=== PATIENT | female | born 1950 | race Caucasian/White ===

== ENCOUNTER 2023-06-27 12:12 | Outpatient (AMB) | payer OTHER, MEDICAID, SELFPAY ==
--- NOTE | 2023-06-27 13:29 | MHC.OFFWIV ---
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 She states that last week she developed fever cough congestion. She took a home COVID test which was positive but then noticed that the COVID test had last year. She is questioning if this is a valid for results. She also reports that 2 other people she works with tested positive for COVID recently. She is here requesting another COVID test. Review of Systems Const Reports body aches, Reports chills, Reports fatigue, Reports headache(s) and Reports malaise ENT Denies dizziness, Reports headache(s), Reports nasal congestion and Reports sore throat Card Denies rapid heart rate, Denies dyspnea and Denies dyspnea on exertion Resp Denies dyspnea and Denies dyspnea on exertion GI Denies dyspepsia and Denies heartburn Musc Denies arthralgias and Denies muscle cramps Neuro Denies dizziness, Reports headache(s), Denies focal weakness and Denies Other visual disturbances Endo Reports fatigue Physical Exam Vital Signs: Last Vital Signs Temp 97.8 F 06/27/23 13:45 Pulse 69 06/27/23 13:45 BP 128/88 06/27/23 13:45 Pulse Ox 97 06/27/23 13:45 Oxygen Delivery Method Room Air 06/27/23 13:45 BMI result Body Mass Index 33.3 Const General: healthy appearing and no acute distress HEENT Mouth: Normal oral and palatal mucosa present Resp Effort & Inspection: normal respiratory effort and able to speak in complete sentences Auscultation: clear to auscultation bilaterally Cardio Rate: regular rate Rhythm: regular rhythm Assessment & Plan Assessment & Plan (1) Flu-like symptoms: Code(s): R68.89 - Other general symptoms and signs Plan Patient well-appearing and stable for outpatient follow-up. Rapid antigen test will be ordered per patient's request. Will follow-up with patient. She reports to call her on her home phone: [phone] Orders: Orders Marshall Leslieid-19 Ag Today J06.9 - Acute upper respiratory infection, unspecified Coding Level of Care Code Est Pt Level 3 (30579) Diagnoses Flu-like symptoms R68.89
[2023-06-27 13:45] VITALS: BP 128/88; PULSE 69; TEMP 36.6; O2SAT 97; BMI 33.3
== END 2023-06-27 14:26 | disposition home or self-care (01) ==
PROVIDERS: PCP Internal Medicine; Visit Provider Emergency Medicine
DX: R68.89 Other general symptoms and signs (principal)
CPT/HCPCS: 99213

== ENCOUNTER 2023-06-27 14:06 | Outpatient (REF) | payer MEDICARE, SELFPAY ==
[2023-06-27 14:20] LABS: Binax Internal Control QC Valid; Binax Now Covid-19 Ag Positive (Negative); Binax Performed by: HO.BONILM
== END 2023-06-27 14:07 | disposition home or self-care (01) ==
LOC: HO.HMGCLDS 14:06
PROVIDERS: PCP Internal Medicine; Visit Provider Emergency Medicine
DX: Z11.52 Encounter for screening for COVID-19 (principal); J06.9 Acute upper respiratory infection, unspecified
CPT/HCPCS: 87811

== ENCOUNTER 2024-08-17 09:42 | Outpatient (REF) | payer MEDICARE, SELFPAY ==
--- NOTE | ~2024-08-17 | XR_ITS ---
EXAMINATION: X-ray lumbar spine. CLINICAL INFORMATION: Low back pain, unspecified. COMPARISON: No priors. TECHNIQUE: 4 views of the lumbar spine. FINDINGS: S-shaped curvature of the thoracolumbar spine resulting in deformity of the abdomen and pelvis. Multilevel marginal osteophyte formation. Probable grade 1 anterolisthesis L5-S1. Osteopenia versus osteoporosis. No lytic or blastic lesions. Vascular calcifications, aorta. XR/XR lumbar spine 4V min IMPRESSION: Moderate to severe scoliosis, thoracolumbar spine. Grade 1 anterolisthesis L5-S1 on a degenerative basis. Electronically signed by: Soy Schmitz MD 08/17/2024 01:43 PM EST
--- OUTSIDE RECORDS SUMMARY | 2024-08-17 11:41 | XMS_ITS | Encounter Summary ---
Author Organization [facility] Address [address] [place] [address] Care Team Providers Care Home School Liaison Officer Name Role Phone Cait Redd MD Primary Care Provider [phone] Encounter Details Date Type Department Care Team Description 11/18/2021 Pt. Non Urgent Medic al Question Adult Medicine [address] [address] Vidhi Villalta PA-C Social History Tobacco Use Types Packs/Day Years Used Date Smoking Tobacco: Former Smokeless Tobacco: Never Comments:quit 2002 Alcohol Use Standard Drinks/Week Comments No 0 (1 standard drink = 0.6 oz pur e alcohol) Sex Assigned at Date Recorded Female 03/31/2021 9:19 AM E DT Job Start Date Occupation Industry Not on file Not on file Not on file COVID-19 Exposure Response Date Recorded In the last 10 days, have yo u been in contact with someone who was confirmed or suspected to have Coronavirus/COVID-19? No / Unsure 11/17/2021 9:43 AM EDT documented as of this encounter Miscellaneous Notes * Telephone Encounter - Radha Barkley - 11/20/2021 7:34 AM EDTFrom: Aline Carr To: Ponce Villalta Sent: 11/18/2021 9:21 AM EDT Subject: knee x ray 11/17/2021 i read the results and i do not understand why my knee hurts so much if there is nothing different. can you please explain thank you, aline documented in this encounter Plan of Treatment Not on file documented as of this encounter Visit Diagnoses Not on filedocumented in this encounter Care Teams Home School Liaison Officer Relationship Specialty Start Date End Date Cait Redd MD [address] [place] [phone] PCP - General 01/11/09 documented as of this encounter
--- OUTSIDE RECORDS SUMMARY | 2024-08-17 11:41 | XMS_ITS | Encounter Summary ---
Author Organization [facility] Address [address] [place] [address] Care Team Providers Care Homicide Squad Captain Name Role Phone Cait Redd MD Primary Care Provider [phone] Encounter Details Date Type Department Care Team Description 12/07/2021 Pt. Non Urgent Medic al Question Adult Medicine [address] [address] Vidhi Villalta PA-C Social History Tobacco Use [...] suspected to have Coronavirus/COVID-19? No / Unsure 12/05/2021 12:20 PM EDT documented as of this encounter Miscellaneous Notes * Telephone Encounter - Odalis Hernández M.A. - 12/08/2021 8:11 AM EDTFrom: Aline Carr To: Ponce Villalta Sent: 12/07/2021 8:59 PM EDT Subject: physical therapy i already have a PT evaluation for 12/12/2021. why do i need to set up an appt. for PT on [facility]? if i can have my PT at [facility] i want to have it there. i do not want to travel 2 or 3 times a week to [place] for PT . [facility] is much closer and i do not like driving. thank you, aline documented in this encounter Plan of Treatment Not on file documented as of this encounter Visit Diagnoses Not on filedocumented in this encounter Care Teams Homicide Squad Captain Relationship Specialty Start Date End Date Cait Redd MD [address] [place] [phone] PCP - General 01/11/09 documented as of this encounter
--- OUTSIDE RECORDS SUMMARY | 2024-08-17 11:41 | XMS_ITS | Encounter Summary ---
Author Organization [facility] Address [address] [place] [address] Care Team Providers Care Meat Hanger Name Role Phone Cait Redd MD Primary Care Provider [phone] Encounter Details Date Type Department Care Team Description 12/01/2014 Business Doc Medical Records [address] [place] [phone] Abstract, Provider Social History Tobacco Use Types Packs/Day Years Used Date Smoking Tobacco: Former Smokeless Tobacco: Never Comments:quit 2002 Alcohol Use Standard Drinks/Week Comments No 0 (1 standard drink = 0.6 oz pur e alcohol) Sex Assigned at Date Recorded Female 03/31/2021 9:19 AM E DT Job Start Date Occupation Industry Not on file Not on file Not on file documented as of this encounter Plan of Treatment Not on file documented as of this encounter Visit Diagnoses Not on filedocumented in this encounter Care Teams Meat Hanger Relationship Specialty Start Date End Date Cait Redd MD [address] [place] [address] [phone] PCP - General 01/11/09 documented as of this encounter
--- OUTSIDE RECORDS SUMMARY | 2024-08-17 11:41 | XMS_ITS | Encounter Summary ---
Author Organization [facility] Address [address] [place] [address] Care Team Providers Care Bending Roll Operator Name Role Phone Cait Redd MD Primary Care Provider [phone] Encounter Details Date Type Department Care Team Description 03/30/2020 Pt. Non Urgent Medical Question Adult Medicine [facility] [address] [place] [address] Salvatore Norman FNP [address] [place] [address] Social History Tobacco Use Types Packs/Day Years Used Date Smoking Tobacco: Former Smokeless Tobacco: Never Comments:quit 2002 Alcohol Use Standard Drinks/Week Comments No 0 (1 standard drink = 0.6 oz pur e alcohol) Sex Assigned at Date Recorded Female 03/31/2021 9:19 AM E DT Job Start Date Occupation Industry Not on file Not on file Not on file documented as of this encounter Miscellaneous Notes * Telephone Encounter - Jacki Vasquez M.A. - 03/30/2020 1:26 PM EDTFrom: Radha Carr To: MONISHA Steiner Sent: 03/30/2020 12:57 PM EDT Subject: shingles shot Last week I brought in a paper that had when I gotten my 2 shingles shots. I left it at Dr. Redd's front desk representative. Have you received it yet? I just checked today and the shots are listed as overdue. Thank you, Radha documented in this encounter Plan of Treatment Not on file documented as of this encounter Visit Diagnoses Not on filedocumented in this encounter Care Teams Bending Roll Operator Relationship Specialty Start Date End Date Cait Redd MD [address] [place] [phone] PCP - General 01/11/09 documented as of this encounter
--- OUTSIDE RECORDS SUMMARY | 2024-08-17 11:41 | XMS_ITS | Encounter Summary ---
Author Organization [facility] Address [address] [place] [address] Care Team Providers Care Paintings Restorer Name Role Phone Cait Redd MD Primary Care Provider [phone] Encounter Details Date Type Department Care Team Description 03/24/2021 Telephone [address]ermat[address] [place] [address] Blanco Camarillo PA-C Social History Tobacco Use Types Packs/Day [...] Exposure Response Date Recorded In the last month, have you been in contact with someone who was confirmed or suspected to have Coronavirus / COVID-19? No / Unsure 03/20/2021 10:14 AM EDT documented as of this encounter Miscellaneous Notes * Telephone Encounter - Natalie Barkley - 03/29/2021 1:50 PM EDT Several attempts to contact this number-rapid busy signal. ? Correct number? * Telephone Encounter - María Elena Arizmendi - 03/24/2021 10:51 AM EDT [facility] called has questions about the quantity of Menthol-Zinc Oxide (Calmoseptine) 0.44-20.6 % Ointment, please advise they can be reached at [phone] reference number [id number] documented in this encounter Plan of Treatment Not on file documented as of this encounter Visit Diagnoses Not on filedocumented in this encounter Care Teams Paintings Restorer Relationship Specialty Start Date End Date Cait Redd MD [address] [place] [phone] PCP - General 01/11/09 documented as of this encounter
--- OUTSIDE RECORDS SUMMARY | 2024-08-17 11:41 | XMS_ITS | Encounter Summary ---
Author Organization [facility] Address [address] [place] [address] Care Team Providers Care A P Manager Name Role Phone Cait Redd MD Primary Care Provider [phone] Encounter Details Date Type Department Care Team Description 12/11/2016 Pt. Non Urgent Medical Question Adult Medicine [facility] [address] [place] [address] [phone] Cait Redd MD [address] [place] [address] [phone] Social History Tobacco Use Types Packs/Day Years Used Date Smoking Tobacco: Former Smokeless Tobacco: Former Comments:quit 2002 Alcohol Use Standard Drinks/Week Comments No 0 (1 standard drink = 0.6 oz pur e alcohol) Sex Assigned at Date Recorded Female 03/31/2021 9:19 AM E DT Job Start Date Occupation Industry Not on file Not on file Not on file documented as of this encounter Progress Notes * Debby Simpson M.A. - 12/11/2016 2:07 PM EDTFrom: Radha Carr To: Cait Redd MD Sent: 12/11/2016 1:57 PM EDT Subject: urology referral I have not been called about a urology appointment as of yet. I do not have blood in my urine todaybut i want to find out what caused the bloody urine. documented in this encounter Plan of Treatment Not on file documented as of this encounter Visit Diagnoses Not on filedocumented in this encounter Care Teams A P Manager Relationship Specialty Start Date End Date Cait Redd MD [address] [place] [phone] PCP - General 01/11/09 documented as of this encounter
--- OUTSIDE RECORDS SUMMARY | 2024-08-17 11:41 | XMS_ITS | Encounter Summary ---
Author Organization [facility] Address [address] [place] [address] Care Team Providers Care Extrusion Bender Name Role Phone Cait Redd MD Primary Care Provider [phone] Encounter Details Date Type Department Care Team Description 01/06/2021 Pt. Non Urgent Medical Question Adult Medicine [facility] [address] [place] [phone] Salvatore Norman, [facility] [address] [place] [address] [phone] Social History Tobacco Use Types Packs/Day Years [...] have Coronavirus / COVID-19? No / Unsure 12/20/2020 9:41 AM EDT documented as of this encounter Plan of Treatment Not on file documented as of this encounter Visit Diagnoses Not on filedocumented in this encounter Care Teams Extrusion Bender Relationship Specialty Start Date End Date Cait Redd MD [address] [place] [address] [phone] PCP - General 01/11/09 documented as of this encounter
--- OUTSIDE RECORDS SUMMARY | 2024-08-17 11:41 | XMS_ITS | Encounter Summary ---
Author Organization [facility] Address [address] [place] [address] Care Team Providers Care Shampoo Technician Name Role Phone Cait Redd MD Primary Care Provider [phone] Encounter Details Date Type Department Care Team Description 12/25/2013 Hospital Medical Records [address] [place] [address] [place] Social History Tobacco Use Types Packs/Day Years [...] on filedocumented in this encounter Care Teams Shampoo Technician Relationship Specialty Start Date End Date Cait Redd MD [address] [place] [address] [phone] PCP - General 01/11/09 documented as of this encounter
--- OUTSIDE RECORDS SUMMARY | 2024-08-17 11:41 | XMS_ITS | Encounter Summary ---
Author Organization [facility] Address [address] [place] [address] Care Team Providers Care Home Office Claims Examiner Name Role Phone Cait Redd MD Primary Care Provider [phone] Encounter Details Date Type Department Care Team Description 02/01/2021 Orders Only Adult Medicine [address] [phone] Vidhi Villalta PA-C Social History Tobacco Use [...] have Coronavirus / COVID-19? No / Unsure 01/31/2021 9:46 AM EDT documented as of this encounter Plan of Treatment Not on file documented as of this encounter Visit Diagnoses Not on filedocumented in this encounter Care Teams Home Office Claims Examiner Relationship Specialty Start Date End Date Cait Redd MD [address] [place] [phone] PCP - General 01/11/09 documented as of this encounter
--- OUTSIDE RECORDS SUMMARY | 2024-08-17 11:41 | XMS_ITS | Encounter Summary ---
Author Organization [facility] Address [address] [place] [address] Care Team Providers Care Retail Sales Assistant Name Role Phone Cait Redd MD Primary Care Provider [phone] Encounter Details Date Type Department Care Team Description 11/22/2014 Business Doc Medical Records [address] [place] [address] Abstract, Provider Social History Tobacco Use Types [...] on filedocumented in this encounter Care Teams Retail Sales Assistant Relationship Specialty Start Date End Date Cait Redd MD [address] [place] [address] [phone] PCP - General 01/11/09 documented as of this encounter
--- OUTSIDE RECORDS SUMMARY | 2024-08-17 11:41 | XMS_ITS | Encounter Summary ---
Author Organization [facility] Address [address] [place] [address] Care Team Providers Care Foiling Machine Adjuster Name Role Phone Cait Redd MD Primary Care Provider [phone] Encounter Details Date Type Department Care Team Description 06/09/2015 Pt. Non Urgent Medical Question Adult Medicine [facility] [address] [place] [phone] Cait Redd MD [address] [place] [address] [phone] Social History Tobacco Use Types Packs/Day Years [...] Progress Notes * Debby Simpson M.A. - 06/09/2015 8:45 AM ESTFrom: Radha Carr To: Cait Redd MD Sent: 06/09/2015 8:43 AM EST Subject: housing liaison referral I do not have a housing liaison. I thought samantha had a housing liaison that I could make an appointment with documented in this encounter Plan of Treatment Not on file documented as of this encounter Visit Diagnoses Not on filedocumented in this encounter Care Teams Foiling Machine Adjuster Relationship Specialty Start Date End Date Cait Redd MD [address] [place] [phone] PCP - General 01/11/09 documented as of this encounter
--- OUTSIDE RECORDS SUMMARY | 2024-08-17 11:41 | XMS_ITS | Encounter Summary ---
Author Organization [facility] Address [address] [place] [address] Care Team Providers Care Valve Maker Name Role Phone Cait Redd MD Primary Care Provider [phone] Encounter Details Date Type Department Care Team Description 06/27/2023 Walk In Clinic Visit Medical Records [address] [place] [address] Lolis Balderrama DO Social History Tobacco Use Types Packs/Day Years [...] on filedocumented in this encounter Care Teams Valve Maker Relationship Specialty Start Date End Date Cait Redd MD [address] [place], [place] [phone] PCP - General 01/11/09 documented as of this encounter
--- OUTSIDE RECORDS SUMMARY | 2024-08-17 11:41 | XMS_ITS | Encounter Summary ---
Author Organization [facility] Address [address] [place] [address] Care Team Providers Care Consulting Marine Engineer Name Role Phone Cait Redd MD Primary Care Provider [phone] Encounter Details Date Type Department Care Team Description 09/04/2012 Scientific Systems Analyst Report Medical Records [address] [place] [address] Memo Urban Social History Tobacco Use Types Packs/Day Years [...] on filedocumented in this encounter Care Teams Consulting Marine Engineer Relationship Specialty Start Date End Date Cait Redd MD [address] [place] [phone] PCP - General 01/11/09 documented as of this encounter
--- OUTSIDE RECORDS SUMMARY | 2024-08-17 11:41 | XMS_ITS | Encounter Summary ---
Author Organization [facility] Address [address] [place] [address] Care Team Providers Care Electrician Radio Name Role Phone Cait Redd MD Primary Care Provider [phone] Encounter Details Date Type Department Care Team Description 09/29/2014 Business Doc Medical Records [address] [place] [address] Abstract, Provider Social History Tobacco Use Types [...] on filedocumented in this encounter Care Teams Electrician Radio Relationship Specialty Start Date End Date Cait Redd MD [address] [place] [address] [phone] PCP - General 01/11/09 documented as of this encounter
--- OUTSIDE RECORDS SUMMARY | 2024-08-17 11:41 | XMS_ITS | Encounter Summary ---
Author Organization [facility] Address [address] [place] [address] Care Team Providers Care Front Office Representative Name Role Phone Cait Redd MD Primary Care Provider [phone] Encounter Details Date Type Department Care Team Description 04/22/2024 Telephone Adult Medicine [address] [phone] Cait Redd MD [address] [place] [address] Social History Tobacco Use Types Packs/Day Years [...] on filedocumented in this encounter Care Teams Front Office Representative Relationship Specialty Start Date End Date Cait Redd MD [address] [place] [address] PCP - General 01/11/09 documented as of this encounter
--- OUTSIDE RECORDS SUMMARY | 2024-08-17 11:41 | XMS_ITS | Encounter Summary ---
Author Organization [facility] Address [address] [place] [address] Care Team Providers Care Gun Tester Name Role Phone Cait Redd MD Primary Care Provider [phone] Encounter Details Date Type Department Care Team Description 12/31/2016 Licensed Audiologist Report Medical Records [address] [place] [address] Ramez Christinason MD Social History Tobacco Use Types Packs/Day Years [...] on filedocumented in this encounter Care Teams Gun Tester Relationship Specialty Start Date End Date Cait Redd MD [address] [place] [address] [phone] PCP - General 01/11/09 documented as of this encounter
--- OUTSIDE RECORDS SUMMARY | 2024-08-17 11:41 | XMS_ITS | Encounter Summary ---
Author Organization [facility] Address [address] [place] [address] Care Team Providers Care Natural Resources Manager Name Role Phone Cait Redd MD Primary Care Provider [phone] Encounter Details Date Type Department Care Team Description 10/16/2012 Wood Furniture Assembler Report Medical Records [address] [place] [address] Memo Urban Social History Tobacco Use Types [...] on filedocumented in this encounter Care Teams Natural Resources Manager Relationship Specialty Start Date End Date Cait Redd MD [address] [place] [address] PCP - General 01/11/09 documented as of this encounter
--- OUTSIDE RECORDS SUMMARY | 2024-08-17 11:41 | XMS_ITS | Encounter Summary ---
Author Organization [facility] Address [address] [place] [address] Care Team Providers Care Furniture Repair Technician Name Role Phone Cait Redd MD Primary Care Provider [phone] Encounter Details Date Type Department Care Team Description 12/23/2013 Fixed Wing Pilot Report Medical Records [address] [place] [address] [place] Social History Tobacco Use Types [...] on filedocumented in this encounter Care Teams Furniture Repair Technician Relationship Specialty Start Date End Date Cait Redd MD [address] [place] [address] [phone] PCP - General 01/11/09 documented as of this encounter
--- OUTSIDE RECORDS SUMMARY | 2024-08-17 11:41 | XMS_ITS | Encounter Summary ---
Author Organization [facility] Address [address] [place] [address] Care Team Providers Care Supervisor Instrument Repair Name Role Phone Cait Redd MD Primary Care Provider [phone] Encounter Details Date Type Department Care Team Description 04/26/2015 Pt. Non Urgent Medical Question Adult Medicine [facility] [address] [place] [address] [phone] Cait Redd MD [address] [place] [address] [phone] Social History Tobacco Use Types Packs/Day Years [...] as of this encounter Progress Notes * Radha Corea M.A. - 04/27/2015 8:01 AM EDTFrom: Radha Carr To: Cait Redd MD Sent: 04/26/2015 7:47 PM EDT Subject: Dr. Santiago appt. I have a follow-up appointment with Dr. Santiago in May. Will I need to have blood work donebefore then to check on the Hep C ? documented in this encounter Plan of Treatment Not on file documented as of this encounter Visit Diagnoses Not on filedocumented in this encounter Care Teams Supervisor Instrument Repair Relationship Specialty Start Date End Date Cait Redd MD [address] [place] [phone] PCP - General 01/11/09 documented as of this encounter
--- OUTSIDE RECORDS SUMMARY | 2024-08-17 11:41 | XMS_ITS | Clinical Summary ---
Author Organization [facility] Address [address] [place] [address] Care Team Providers Care Customer Solutions Teammate Name Role Phone Cait Redd MD Primary Care Provider [phone] Allergies No known active allergies Medications metoprolol succinate (TOPROL-XL) 25 mg 24 hr tablet TAKE 1 TABLET BY MOUTH DAILY 90 tablet 1 4 Active FLUoxetine (PROzac) 10 mg capsule Take 1 capsule (10 mg total) by mouth 1 (one) time each day. 4 Active hydroCHLOROthia zide (HYDRODIURIL) 25 mg tablet Take 1 tablet (25 mg total) by mouth 1 (one) time each day. 4 Active oxyBUTYnin XL (DITROPAN-XL) 15 mg 24 hr tablet Take 1 tablet (15 mg total) by mouth 1 (one) time each day. 4 Active cekytsxw-ijg-xh on-FA-vit K-lut (Centrum Silver Women) 8 mg iron-400 mcg-50 mcg tablet Take by mouth. Acti ve calcium carbonate 1,500 mg (600 mg elemental calcium) tablet Take 600 mg by mouth 2 (two) times a day with meals. 4 Active cholecalciferol (VITAMIN D-3) 50 mcg (2,000 unit) tablet Take 1 tablet (2,000 Units total) by mouth 1 (one) time each day. 4 Active alendronate (FOSAMAX) 70 mg tablet Take 1 tablet (70 mg total) by mouth every 7 (seven) days. 4 Active fluticasone propionate (FLONASE) 50 mcg/actuation nasal spray Administer 2 sprays into affected nostril(s) 1 (one) time each day. 3 Active aspirin 81 mg EC tablet Take 1 tablet (81 mg total) by mouth 1 (one) time each day. 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 Fosamax initiated 08/18/21 see tele encounter OAB (overactive bladder) 10/30/2016 Scoliosis 10/30/2016 Overview (06/18/2024): Thoracic Tremor 09/25/2016 Gallstones 06/21/2016 Depression 04/15/2014 Obesity 09/05/2010 Essential hypertension, benign 10/15/2007 Sciatica 10/15/2007 Immunizations Name Administration Dates Next Due Influenza trivalent, 0.5mL ( Fluad) 65yo and older 03/30/2022,03/31/2021,03/10/2021,05/01,04/01/2020,03/11/2019,04/02/2018 ,04/08/2017,03/19/2016,03/20/2015,03/08,03/12/2013,03/24/2012, 1,03/10/2011,04/07/2010,03/29/2009 Influenza, Unspecified 03/29/2023 Moderna (age 6mo & older) Bi valent, COVID-19, 0.5 mL or 0.25 mL dosage 05/25/2022 Moderna SARS-CoV-2 COVID-19, mRNA, LNP-S, preservative free 02/06/2022,06/28/2021,11/26/2020,10/29 Pneumococcal conjugate 13 va lent (Prevnar 13, PCV13) 2mo and older 03/26/2015 Pneumococcal polysaccharide 23 valent (Pneumovax 23) 2yo and older 03/22/2020,03/22/2019,03/19/2016 Td Tetanus diptheria (Tdvax) 7yo and older 05/27/2019 Tdap Tetanus diptheria acell ular pertussis (Boostrix; Adacel) 7yo and older 06/08/2009 Zoster Live 03/26/2015 Zoster recombinant (Shingrix ) 19yo and older 03/11/2018,11/11/2017 Surgical History Surgery Date Site/Laterality Comments COLONOSCOPY 2000 PROCEDURE: HISTORICAL COLONOSCOPY; COMMENT: One polyp; Francia. COLONOSCOPY 2004 PROCEDURE: HISTORICAL COLONOSCOPY; COMMENT: Negative; Francia. COLONOSCOPY 08/16/2010 PROCEDURE: HISTORICAL COLONOSCOPY; COMMENT: No polyps. COLONOSCOPY 12/13/2017 PROCEDURE: HISTORICAL COLONOSCOPY; COMMENT: diverticulosis, internal hemorrhoids, Repeat 5 yrs for surveillance OTHER SURGICAL HISTORY 12/25/2013 Left PROCEDURE: IA IMPLTJ/RPLCMT EMGNT BONE CNDJ DEV TEMPORAL BONE; COMMENT: Cochlear Implant Medical History Medical History Date Comments Sciatica 10/15/2007 DX:Sciatica Essential hypertension, benign 10/15/2007 D X:Essential hypertension, benign Obesity 09/05/2010 DX:Obesity Depression 04/15/2014 DX:Depression History of colonic polyps 08/07/2010 DX:His tory of colonic polyps; COMMENT: Polyp 2000. Negative colonoscopy 2004. Negative colonoscopy 08/16/2010, no colon cancer screening needed for 7 years. Gallstones 06/21/2016 DX:Gallstones History of thrombophlebitis 08/27/2010 DX:H istory of thrombophlebitis; COMMENT: Aug 2010: At [facility] for saphenous vein thrombosis - calf to thigh - at risk for propagation to femoral vein. Also on Rx for cellulitis. History of hepatitis C 04/29/2014 DX:Histor y of hepatitis C; COMMENT: Chronic Hepatitis C Genotype 1B. Tx Started 07/20/16 Harvoni 90-400 mg Take 1 tabs daily for 8 weeks. End date 09/21/16. HCV undetectable on 09/14/16=ETR. HCV undetectable on 12/17/16 = SVR. 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) 04/17/2017 DX:PVD (peripheral vascular disease) ([facility]) Tremor 09/25/2016 DX:Tremor Varicose veins of both lower extremities 12/22/2019 DX:Varicose veins of both lo wer extremities Family History Medical History Relation Name Comments Diabetes Aunt multiple matern al aunts Arthritis Brother Bladder Cancer Father Diabetes Maternal Grandmother Diabetes Mother Breast cancer Neg Hx Colon cancer Neg Hx Ovarian cancer Neg Hx Relation Name Status Comments Aunt Brother Alive Father Maternal Grandmother Mother Social History Tobacco Use Types Packs/Day Years Used Date Smoking Tobacco: Former Smokeless Tobacco: Never Alcohol Use Standard Drinks/Week Comments No 0 (1 standard drink = 0.6 oz pur e alcohol) Comments Unknown Sex and Gender Information Value Date Recorded Sex Assigned at Not on file Legal Sex Female 5:20 PM EST Gender Identity Not on file Sexual Orientation Not on file Obstetrics History Last Filed Vital Signs Vital Sign Reading Time Taken Comments Blood Pressure 134/73 04/22/2024 11:05 AM EDT Pulse 62 04/22/2024 11:05 AM EDT Temperature - - Respiratory Rate - - Oxygen Saturation - - Inhaled Oxygen Concentration - - Weight 74.1 kg (163 lb 6.4 oz) 04/22/2024 11:05 AM EDT Height 149.9 cm (4' 11 ) 04/22/2024 11:05 AM EDT Body Mass Index 33 04/22/2024 11:05 AM EDT Plan of Treatment Upcoming Encounters Date Type Department Care Team (Late st Contact Info) Description 10/21/2024 11:00 AM EDT Office Visit Adult Medicine [facility] [address] [place], [place] [phone] Eze Rosales NP [address] [place], [place] Health Maintenance Due Date Last Done Comments DTaP,Tdap,and Td Vaccines (3 - Td or Tdap) 11/25/2019 05/27/2019, 06/08/2009 Social Influencers of Health Screening 06/09/2022 RSV Immunization Patients 60+ Years Old (1 - 1-dose 75+ series) 09/08/2023 COVID-19 Vaccine ( season) 2024 05/25/2022, 02/06/2022, 06/28/2021, Additional history exists Influenza Vaccine (#1) 2024 3, 03/30/2022, 03/31/2021, Additional history exists Colorectal Cancer Screening: Colonoscopy 12/13/2024 12/13/2017 Hypertension/CHF/CAD Annual BMP Blood Test 04/01/2025 04/01/2024, 04/01/2024 Depression Screening 04/22/2025 04/22/2024 Falls Risk Assessment 04/22/2025 04/22/2024 Medicare Annual Wellness Visit 04/22/2025 04/22/2024 Cholesterol Screening (Lipid Panel) 11/17/2026 11/17/2021 Osteoporosis Screening (Bone Density Screening) 04/13/2034 04/13/2024, 04/13/2024, 08/16/2021, Additional history exists Hepatitis C Screening Completed 01/05/2014 Zoster Vaccines Completed 03/11/2018, 050 01/2018, 03/26/2015 Pneumococcal Vaccine: 50+ Years Completed 03/22/2020, 03/22/2019, 03/19/2016, Additional history exists HIB Vaccines Aged Out No longer eligi ble based on patient's age to complete this topic HPV Vaccines Aged Out No longer eligi ble based on patient's age to complete this topic Hepatitis A Vaccines Aged Out No long er eligible based on patient's age to complete this topic Hepatitis B Vaccines Aged Out No long er eligible based on patient's age to complete this topic IPV Vaccines Aged Out No longer eligi ble based on patient's age to complete this topic MMR Vaccines Aged Out No longer eligi ble based on patient's age to complete this topic Meningococcal ACWY Vaccine Aged Out N o longer eligible based on patient's age to complete this topic Meningococcal B Vacine Aged Out No lo nger eligible based on patient's age to complete this topic RSV Immunization Patients Under 20 months Aged Out No longer eligible based on patient's age to complete this topic Varicella Vaccines Aged Out No longer eligible based on patient's age to complete this topic Procedures Procedure Name Priority Date/Time Associated Diagnosis Comments DEPRESSION SCREENING Routine 04/22/2024 FALLS RISK ASSESSMENT Routine 04/22/2024 DXA BONE DENSITY STUDY 1+ SITS AXIAL SKEL Routine 04/13/2024 12:00 PM EDT Asymptomatic menopausal state ANNUAL BMP BLOOD TEST Routine 04/01/2024 LIPID PANEL Routine 11/17/2021 COLONOSCOPY Routine 12/13/2017 HEPATITIS C SCREENING Routine 01/05/2014 from Last 3 Months or Most Recently Relevant to Health Maintenance Results * Falls Risk Assessment (04/22/2024) Pathologist [facility] Falls Risk Assessment Abstracted us Historical Provider HEALTH MAINTENANCE Final Result * Depression Screening (04/22/2024) Pathologist [facility] Depression Screening Abstracted us Historical Provider HEALTH MAINTENANCE Final Result * DXA BONE DENSITY STUDY 1+ SITS AXIAL SKEL (04/13/2024 12:00 PM EDT) Anatomical Region Laterality Modality Bone Densitometr y 10/01/2023 10:2 6 AM EDT Narrative 04/13/2024 5:31 PM EDT BONE DENSITY SCAN (DEXA): FINDINGS: Lumbar Spine T-score is 0.4. ?? (SD relative to 20-29 y/o adult) Z-score is 2.9. ??(SD relative to age matched peers) This is considered normal by WHO criteria. Left Hip T-score is -2.6. Z-score is -0.5. This is considered osteoporosis by WHO criteria. Left Forearm T-score is -1.3. Z-score is 1.3. This is considered osteopenia by WHO criteria Comparison exam(s): 08/16/2021. 7.0% increase in lumbar spine bone mineral density and 9.5% increase in left forearm bone mineral density both of which are statistically significant at the 95% confidence level. No statistically significant change in left hip bone mineral density. Lateral survey view of the thoracolumbar spine is essentially nondiagnostic due to scoliotic curvature. IMPRESSION: IMPRESSION: ?? Osteoporosis by WHO criteria. The [facility] Department of Internal Medicine recommends using National Osteoporosis Foundation (NOF) guidelines in treatment decisions related to osteoporosis. NOF guidelines suggest considering treatment for postmenopausal women and men aged 50 or older presenting with the following: History of hip or vertebral fracture. T-score = -2.5 (DXA) at the femoral neck, total hip, or spine, after appropriate evaluation to exclude secondary causes. Low bone mass (T-score between -1.0 and -2.5 at the femoral neck or spine) AND a 10-year probability of a hip fracture = 3% OR a 10-year probability of a major osteoporosis-related fracture = 20% based on the [place]-adapted WHO algorithm Please note that all treatment decisions require clinical judgment and consideration of individual patient factors, including patient preferences, co-morbidities, previous drug use, risk factors not captured in the FRAX model (e.g., frailty, falls, vitamin D deficiency, increased bone turnover, interval significant decline in bone density) and possible under- or over-estimation of fracture risk by FRAX. Optional alternative screening schedule based on evangelina Oneal., [facility] July 26, 2011 for patients with osteopenia (based on hip BMD T-score) is as follows: * ??advanced osteopenia (T scores -2.00 to -2.49), BMD testing every year * ??moderate osteopenia (T scores -1.50 to -1.99), BMD testing every 5 years mild osteopenia or normal BMD (T scores -1.50 and higher), BMD testing every 15 years Procedure Note Moon Glynn MD - 05/05/2024 BONE DENSITY SCAN (DEXA): FINDINGS: Lumbar Spine T-score is 0.4. (SD relative to 20-29 y/o adult) Z-score is 2.9. (SD relative to age matched peers) This is considered normal by WHO criteria. Left Hip T-score is -2.6. Z-score is -0.5. This is considered osteoporosis by WHO criteria. Left Forearm T-score is -1.3. Z-score is 1.3. This is considered osteopenia by WHO criteria Comparison exam(s): 08/16/2021. 7.0% increase in lumbar spine bone mineraldensity and 9.5% increase in left forearm bone mineral density both of which arestatistically significant at the 95% confidence level. No statistically significant change in left hipbone mineral density. Lateral survey view of the thoracolumbar spine is essentiallynondiagnostic due to scoliotic curvature. IMPRESSION: IMPRESSION: Osteoporosis by WHO criteria. [facility] Department of Internal Medicine recommendsusing National Osteoporosis Foundation (NOF) guidelines in treatment decisions related toosteoporosis. NOF guidelines suggest considering treatment for postmenopausal women and menaged 50 or older presenting with the following: History of hip or vertebral fracture. T-score = -2.5 (DXA) at the femoral neck, total hip, or spine, afterappropriate evaluation to exclude secondary causes. Low bone mass (T-score between -1.0 and -2.5 at the femoral neck or spine)AND a 10-year probability of a hip fracture = 3% OR a 10-year probability of a majorosteoporosis-related fracture = 20% based on the [place]-adapted WHO algorithm Please note that all treatment decisions require clinical judgment andconsideration of individual patient factors, including patient preferences, co- morbidities,previous drug use, risk factors not captured in the FRAX model (e.g., frailty, falls, vitaminD deficiency, increased bone turnover, interval significant decline in bone density) andpossible under- or over-estimation of fracture risk by FRAX. Optional alternative screening schedule based on evangelina Oneal., [facility] for patients with osteopenia (based on hip BMD T-score) is as follows: * advanced osteopenia (T scores -2.00 to -2.49), BMD testing every year * moderate osteopenia (T scores -1.50 to -1.99), BMD testing every 5years mild osteopenia or normal BMD (T scores -1.50 and higher), BMD testingevery 15 years Cait Redd MD IMG DXA PROCEDURES Final Result * Annual BMP Blood Test (04/01/2024) [facility] Annual BMP Blood Test Abstracted Result [facility] Nayla HOLLEY HEALTH MAINTENANCE Final Result * (ABNORMAL) Lipid panel (11/17/2021) [facility] LDL/HDL Ratio 3 0 - 4 Triglycerides 124 0 - 150 mg/dL Cholesterol 202(A) 0 - 200 mg/dL HDL 67 >=40 mg/dL LDL Cholesterol 111(A) 0 - 100 mg/dL Blood Venous blood specimen / Unknown Result [facility] Nayla HOLLEY LAB BLOOD ORDERABLES Caryl l Result * Colonoscopy (12/13/2017) [facility] Colonoscopy Abstracted. No Interpretation Anatomical Region Laterality Modality Other Result [facility] Nayla [facility]LEY HEALTH MAINTENANCE Final Result * Hepatitis C Screening (01/05/2014) Hepatitis C Screening Abstracted Historical Provider HEALTH MAINTENANCE Final Result from Last 3 Months or Most Recently Relevant to Health Maintenance Care Teams Customer Solutions Teammate Relationship Specialty Start Date End Date Cait Redd MD [address] [place] [address] PCP - General 01/11/09
--- OUTSIDE RECORDS SUMMARY | 2024-08-17 11:41 | XMS_ITS | Encounter Summary ---
Author Organization [facility] Address [address] [place] [address] Care Team Providers Care School Bus Operator Name Role Phone Cait Redd MD Primary Care Provider [phone] Encounter Details Date Type Department Care Team Description 07/16/2023 Orders Only Medical Records [address] [place] [id number] Lolis Balderrama DO Social History Tobacco Use [...] on file documented as of this encounter Procedures Procedure Name Priority Date/Time Associated Diagnosis Comments OUTSIDE LAB Routine 06/27/2023 documented in this encounter Results * OUTSIDE LAB (06/27/2023) Lolis Balderrama DO LAB documented in this encounter Visit Diagnoses Not on filedocumented in this encounter Care Teams School Bus Operator Relationship Specialty Start Date End Date Cait Redd MD [address] [place] [address] PCP - General 01/11/09 documented as of this encounter
--- OUTSIDE RECORDS SUMMARY | 2024-08-17 11:41 | XMS_ITS | Encounter Summary ---
Author Organization [facility] Address [address] [place] [address] Care Team Providers Care Civil Engineering Draftsperson Name Role Phone Cait Redd MD Primary Care Provider [phone] Encounter Details Date Type Department Care Team Description 08/08/2010 Transfer Records Medical Records [address] [place] [address] Abstract, Provider Social History Tobacco Use Types Packs/Day Years Used Date Smoking Tobacco: Former Comments:quit 2002 Alcohol Use Standard [...] on filedocumented in this encounter Care Teams Civil Engineering Draftsperson Relationship Specialty Start Date End Date Cait Redd MD [address] [place] [address] [phone] PCP - General 01/11/09 documented as of this encounter
--- OUTSIDE RECORDS SUMMARY | 2024-08-17 11:41 | XMS_ITS | Encounter Summary ---
Author Organization [facility] Address [address] [place] [address] Care Team Providers Care Baker Second Name Role Phone Cait Redd MD Primary Care Provider [phone] Reason for Visit * Reason Onset Date Comments REFERRAL 10/12/2017 Encounter Details Date Type Department Care Team Description 10/12/2017 Telephone Gastroenterology - [address] [address] Yuval Santiago MD REFERRAL Social History Tobacco Use Types Packs/Day Years [...] encounter Miscellaneous Notes * Telephone Encounter - Sebastian Johnson PA-C - 10/14/2017 9:46 AM EDT After reviewing Dr. Santiago's previous colonoscopy report from 2010, it's probably most appropriate to have this patient scheduled for a hospital based colonoscopy. * Telephone Encounter - Mya Currie C.M.A. - 10/14/2017 9:42 AM EDT Please review. * Telephone Encounter - Yasmin Gregorio - 10/12/2017 9:03 AM EDT Please review if needs hospital setting? documented in this encounter Plan of Treatment Not on file documented as of this encounter Visit Diagnoses Not on filedocumented in this encounter Care Teams Baker Second Relationship Specialty Start Date End Date Cait Redd MD [address] [place] [id number] PCP - General 01/11/09 documented as of this encounter
--- OUTSIDE RECORDS SUMMARY | 2024-08-17 11:41 | XMS_ITS | Encounter Summary ---
Author Organization [facility] Address [address] [place] [address] Care Team Providers Care Baker Pastry Name Role Phone Cait Redd MD Primary Care Provider Encounter Details Date Type Department Care Team Description 03/08/2020 Orders Only Medical Records [address] [place] [address] Salvatore Norman FNP [address] [place], [place] [phone] Social History Tobacco Use Types Packs/Day Years [...] Name Priority Date/Time Associated Diagnosis Comments OUTSIDE ECHO Routine 03/03/2020 documented in this encounter Results * OUTSIDE ECHO (03/03/2020) [facility] documented in this encounter Visit Diagnoses Not on filedocumented in this encounter Care Teams Baker Pastry Relationship Specialty Start Date End Date Cait Redd MD [address] [place] [address] PCP - General 01/11/09 documented as of this encounter
--- OUTSIDE RECORDS SUMMARY | 2024-08-17 11:41 | XMS_ITS | Encounter Summary ---
Author Organization [facility] Address [address] [place] [address] Care Team Providers Care Counter Caser Name Role Phone Cait Redd MD Primary Care Provider [phone] Encounter Details Date Type Department Care Team Description 11/27/2019 Telephone Adult Medicine - [place] [address] [place] [address] Margy Woodard MD [address] [place] [address] Social History Tobacco Use Types Packs/Day Years [...] on filedocumented in this encounter Care Teams Counter Caser Relationship Specialty Start Date End Date Cait Redd MD [address] [place] [address] PCP - General 01/11/09 documented as of this encounter
--- OUTSIDE RECORDS SUMMARY | 2024-08-17 11:41 | XMS_ITS | Encounter Summary ---
Author Organization [facility] Address [address] [place] [address] Care Team Providers Care Croze Cutter Helper Name Role Phone Cait Redd MD Primary Care Provider [phone] Encounter Details Date Type Department Care Team Description 01/11/2014 Pt. Non Urgent Medical Question Adult Medicine [facility] [address] [place] [address] [phone] Cait Redd MD [address] [place] [address] [phone] Social History Tobacco Use Types Packs/Day Years [...] Progress Notes * Radha Corea M.A. - 01/11/2014 10:50 AM EDTFrom: Radha Carr To: Cait Redd MD Sent: 01/11/2014 10:47 AM EDT Subject: blood test results Dr. Redd, received your message on my voice mail. how long will it take for the rest of the blood work to be back? my main concern is having to wait until April to see the liver specialist. Can I get an earlier appointment? I am going to tell the woman who washed my hair for me after my BAHA surgery today(I had blood on my hair from the surgery. I am worried about her more than I am worried about me documented in this encounter Plan of Treatment Not on file documented as of this encounter Visit Diagnoses Not on filedocumented in this encounter Care Teams Croze Cutter Helper Relationship Specialty Start Date End Date Cait Redd MD [address] [place] [address] PCP - General 01/11/09 documented as of this encounter
--- OUTSIDE RECORDS SUMMARY | 2024-08-17 11:41 | XMS_ITS | Encounter Summary ---
Author Organization [facility] Address [address] [place] [address] Care Team Providers Care Shake Cutter Name Role Phone Cait Redd MD Primary Care Provider [phone] Encounter Details Date Type Department Care Team Description 04/25/2014 Pt. Non Urgent Medical Question Adult Medicine [facility] [address] [place] [address] [phone] Cait Redd MD [address] [place] [address] [phone] Social History Tobacco Use Types Packs/Day Years [...] Progress Notes * Radha Corea M.A. - 04/26/2014 8:09 AM EDTFrom: Radha Carr To: Cait Redd MD Sent: 04/25/2014 5:25 PM EDT Subject: hep c According to Dr. Santiago's report I have an inactive hepatitis C infection. What exactly does that mean?? Do I have Hep C?? Do I still take precautions regarding blood, razors etc? Even if the infection isinactive shouldn't I be on a treatment program to cure it?? please explain this to me as I am totally confused at this point. documented in this encounter Plan of Treatment Not on file documented as of this encounter Visit Diagnoses Not on filedocumented in this encounter Care Teams Shake Cutter Relationship Specialty Start Date End Date Cait Redd MD [address] [place] [address] PCP - General 01/11/09 documented as of this encounter
--- OUTSIDE RECORDS SUMMARY | 2024-08-17 11:41 | XMS_ITS | Encounter Summary ---
Author Organization [facility] Address [address] [place] [address] Care Team Providers Care Solderer Furnace Name Role Phone Cait Redd MD Primary Care Provider [phone] Reason for Visit * Reason Onset Date Comments APPOINTMENT 03/31/2024 Encounter Details Date Type Department Care Team Description 03/31/2024 Telephone Adult Medicine [address] [address] Cait Redd MD [address] [place] [address] [phone] APPOINTMENT Social History Tobacco Use Types Packs/Day Years [...] encounter Miscellaneous Notes * Telephone Encounter - Verna Barkley - 04/03/2024 11:56 AM EDT Patient called / no answer and no voice mail * Telephone Encounter - Radha Sebastian L.P.N. - 03/31/2024 2:53 PM EDT Ok to have bone density after apt 04/09/2024 vm not set up on # given * Telephone Encounter - Kira Polly - 03/31/2024 2:07 PM EDT Patient calling in states she has a follow up with PCP 04/09 and bone density on 04/13. Patient just wants to verify if provider wanted the visit to be after the bone density or was it ok to keep current appointment. Requests call back, states to please leave a voicemail of what the provider says as she is heading into work now. documented in this encounter Plan of Treatment Not on file documented as of this encounter Visit Diagnoses Not on filedocumented in this encounter Care Teams Solderer Furnace Relationship Specialty Start Date End Date Cait Redd MD [address] [place] [id number] PCP - General 01/11/09 documented as of this encounter
--- OUTSIDE RECORDS SUMMARY | 2024-08-17 11:41 | XMS_ITS | Encounter Summary ---
Author Organization [facility] Address [address] [place] [address] Care Team Providers Care Stage Set Up Worker Name Role Phone Cait Redd MD Primary Care Provider [phone] Reason for Visit * Reason Onset Date Comments LAB WORK 06/07/2016 Encounter Details Date Type Department Care Team Description 06/07/2016 Telephone Gastroenterology - [address] [address] Yuval Santiago MD LAB WORK Social History Tobacco Use Types Packs/Day Years [...] encounter Miscellaneous Notes * Telephone Encounter - Nelda Montana - 06/08/2016 9:06 AM EST Message relayed to pt * Telephone Encounter - Nelda Montana - 06/07/2016 4:51 PM EST Message left for pt to call our office * Telephone Encounter - Yuval Santiago MD - 06/07/2016 3:38 PM EST Chart reviewed, chronic hepatitis C virus infection follow-up, does not need blood tests prior to the office visit. * Telephone Encounter - Nelda Montana - 06/07/2016 11:07 AM EST Pt has an appointment on 06/15/16 with you, she is asking if she needs to get blood work before she sees you, please advise, thank you! documented in this encounter Plan of Treatment Not on file documented as of this encounter Visit Diagnoses Not on filedocumented in this encounter Care Teams Stage Set Up Worker Relationship Specialty Start Date End Date Cait Redd MD [address] [place] [address] PCP - General 01/11/09 documented as of this encounter
--- OUTSIDE RECORDS SUMMARY | 2024-08-17 11:41 | XMS_ITS | Encounter Summary ---
Author Organization [facility] Address [address] [place] [address] Care Team Providers Care Billet Grinder Name Role Phone Cait Redd MD Primary Care Provider [phone] Reason for Visit * Reason Comments E-prescribe Rx Request Encounter Details Date Type Department Care Team Description 03/17/2024 Refill Adult Medicine [facility] [address] [place] [address] Cait Redd MD [address] [place] [address] [phone] E-prescribe Rx Request Social History Tobacco Use Types Packs/Day Years [...] Telephone Encounter - Jacki Vasquez M.A. - 03/17/2024 1:36 PM EDT FARHAD 10/01/2023 F/U appt 04/09/2024 Lab Results Component Value Date NA 138 04/10/2023 K 4.1 04/10/2023 CO2 31 04/10/2023 CL 101 04/10/2023 BUN 24 04/10/2023 CREAT 1.01 04/10/2023 GLU 93 04/10/2023 CA 9.7 04/10/2023 GFR 58 04/10/2023 * Telephone Encounter - Coco Allred - 03/17/2024 9:58 AM EDT Patient would like script to be: E-PRESCRIBED/FAXED TO PHARMACY WHEN WAS THE PATIENT'S LAST APPOINTMENT IN ADULT MEDICINE? 10/01/23 WHEN WAS THE LAST TIME THE PATIENT SAW THEIR PCP? Same as above Does patient have an upcoming appointment? Yes 04/19/24 (THE MEDICATION REQUESTED IS ON THE MED LIST ABOVE) All of the medications requested were on the CURRENT MEDS list Did you check the Pharmacy information above?: YES Patient wants: 90 -day supply Is this a mail order prescription request ? NO If the refill is from a FAXED refill request what is the RX # listed on the fax? N/A Patients current insurance carrier is: Payor: [facility] / Plan: Invested.in $0 [facility] [id number] / Product Type: HMO [id number] documented in this encounter Plan of Treatment Not on file documented as of this encounter Visit Diagnoses Diagnosis Essential hypertension, benign Depression, unspecified depression type documented in this encounter Care Teams Billet Grinder Relationship Specialty Start Date End Date Cait Redd MD [address] [place] [address] [phone] PCP - General 01/11/09 documented as of this encounter
--- OUTSIDE RECORDS SUMMARY | 2024-08-17 11:41 | XMS_ITS | Encounter Summary ---
Author Organization [facility] Address [address] [place] [address] Care Team Providers Care Copper Miner Name Role Phone Cait Redd MD Primary Care Provider [phone] Encounter Details Date Type Department Care Team Description 03/28/2015 Pt. Non Urgent Medical Question Adult Medicine [facility] [address] [place] [address] [phone] Cait Redd MD [address] [place] [address] [phone] Social History Tobacco Use Types Packs/Day Years [...] Progress Notes * Radha Corea M.A. - 03/28/2015 11:28 AM EDTFrom: Radha Carr To: Cait Redd MD Sent: 03/28/2015 11:14 AM EDT Subject: urogynecology appt/today I had a urogynecology appt today for an annual checkup. they could not take my medical insurance. I have new medical insurance through [employer], [employer] ([employer]) can I make an appointment with your urology dept? I am taking Oxbutynin ER 10 mgs for my bladder control problems documented in this encounter Plan of Treatment Not on file documented as of this encounter Visit Diagnoses Not on filedocumented in this encounter Care Teams Copper Miner Relationship Specialty Start Date End Date Cait Redd MD [address] [place] [address] PCP - General 01/11/09 documented as of this encounter
--- OUTSIDE RECORDS SUMMARY | 2024-08-17 11:41 | XMS_ITS | Clinical Summary ---
Author Organization [facility] Address [address] [place] [address] Care Team Providers Care Manager Pet Name Role Phone Cait Redd MD Primary Care Provider [phone] Allergies No known active allergies Medications Medication Sig Dispensed Refills Start Date End Date Status aspirin 81 MG tablet Take 81 mg by mouth daily. 0 Active fluticasone 50 MCG/ACT nasal spray 2 Sprays by Nasal route daily. 1 g 5 05/27/2023 Active alendronate (Fosamax) 70 MG tablet Take 1 Tablet by mouth every 7 days. 12 Tablet 3 11/18/2023 Active fluoxetine (PROZAC) 10 MG capsuleIndications:Es sential hypertension, benign,Depression, unspecified depression type Take 1 Capsule by mouth daily. 90 Capsule 1 04/22/2024 Active hydrochlorothiazide (HYDRODIURIL) 25 MG tablet Take 1 Tablet by mouth daily. 90 Tablet 1 04/22/2024 Active metoprolol (TOPROL-XL) 25 MG 24 hr tablet Take 1 Tablet by mouth daily. 90 Tablet 1 04/22/2024 Active oxybutynin (DITROPAN XL) 15 MG 24 hr tabletIndications:Ess ential hypertension, benign,Depression, unspecified depression type Take 1 Tablet by mouth daily. 90 Tablet 1 04/22/2024 Active Multiple Vitamins-Minerals (Centrum Silver Women 50+) Tab Take by mouth. 0 Active calcium carbonate (Calcium 600) 600 MG Tab Take 1 Tablet by mouth 2 times daily (with meals). 30 Tablet 0 04/22/2024 Active Cholecalciferol (Vitamin D) 50 MCG (1999 UT) Tab Take 1 Tablet by mouth daily. 90 Tablet 1 04/22/2024 Active Active Problems Problem Noted Date Peripheral neuropathy 01/31/2021 Venous stasis dermatitis 01/31/[address] 04/27/2020 Overview: 2013 Left Ankle swelling 03/09/2020 Varicose veins of both lower extremities 12/22/2019 Delayed union of metatarsal fracture 11/2019 Overview: Right Follows [facility] Osteoarthritis 06/03/2018 Overview: Thoracic, & Lumbosacral Spine, R Shoulder Balance problems 03/07/2018 Diverticulosis 12/17/2017 Overview: 12/13/17 CN, repeat 5 yrs for surveillance PVD (peripheral vascular disease) 2016 Osteoporosis 03/26/2017 Overview: 08/29- DXA scan t score lumbar spine -0.2, t score left hip -2.5. Fosamax initiated 08/18/21 see tele encounter Scoliosis 10/30/2016 Overview: Thoracic OAB (overactive bladder) 10/30/2016 Tremor 09/25/2016 History of colon polyps 09/25/2016 Gallstones 06/21/2016 History of hepatitis C 04/29/2014 Overview: Chronic Hepatitis C Genotype 1B. Tx Started 07/20/16 Harvoni 90-400 mg Take 1 tabs daily for 8 weeks. End date 09/21/16. HCV undetectable on 09/14/16=ETR. HCV undetectable on 12/17/16 = SVR. Depression 04/15/2014 Obesity 09/05/2010 History of thrombophlebitis 08/27/2010 Overview: Aug 2010: At [facility] for saphenous vein thrombosis - calf to thigh - at risk for propagation to femoral vein. Also on Rx for cellulitis. Sciatica 10/15/2007 Essential hypertension, benign 8 Resolved Problems Problem Noted Date Resolved Date Varicose veins of both lower extremities without ulcer or inflammation 08/12/2019 12/22/2019 Abnormal CXR 08/11/2018 12/22/2019 Osteopenia 06/03/2018 08/18/2021 Osteopenia 03/26/2017 03/26/2017 Gross hematuria 12/10/2016 03/26/2017 Renal insufficiency 03/19/2016 03/09/2020 Hyperkalemia/ ? r/t lisinopril and nsaids 201504/27/2020 Onychomycosis 09/08/2015 09/25/2016 PVD (peripheral vascular disease) 09/08/2015 06/26/2016 Varicose veins 08/22/2010 08/12/2019 History of colonic polyps 08/07/20102016 Overview: Polyp 2000. Negative colonoscopy 2004. Negative colonoscopy 08/16/2010, no colon cancer screening needed for 7 years. Immunizations Name Administration Dates Next Due COVID-19 (Moderna) 02/06/2022 COVID-19 (Moderna) PT Reported ,06/28/2021,11/26/2020,10/29 Covid-19 Bivalent (Moderna) 05/25/2022 Influenza (> 6 Months) 03/19/2016,2013,03/12/2013,03/24,03/25/2011,03/10/2011,04/07/2010 ,03/29/2009 Influenza Flu (PT Reported) 03/29/2023 Influenza vaccine high dose age 65 and over 03/30/2022,03/31/2021,03/10/2021,05/01,05/01/2020,04/01/2020,03/11/2019 ,03/11/2019,04/02/2018,04/08/2017,1008/2016,03/19/2016,03/20/2015, 5,03/22/2014,03/12/2013,03/24/2012,,03/10/2011,04/07/2010,03/29/20 09 Pneumoccoccal(Adult) Polysac charide PPSV23 03/22/2020,03/22/2019,03/22/2019,03/19 Pneumococcal Conjugate PCV-13 03/26/2015, 015 Shingrix (Recombinant zoster vaccine) 03/11/2018 ,11/11/2017 TD (STATE SUPPLIED FOR ADULT S AND CHILDREN) 05/27/2019,05/27/2019 Tdap 06/08/2009 Zostavax 03/26/2015,03/26/2015 Family History Medical History Relation Name Comments Diabetes Aunt multiple matern al aunts Arthritis Brother CA of Bladder Father Diabetes Maternal Grandmother Diabetes Mother CA Breast Negative Hx CA Colon Negative Hx CA Ovarian Negative Hx Relation Name Status Comments Aunt Brother Alive Father Maternal Grandmother Mother Social History Tobacco Use Types Packs/Day Years Used Date Smoking Tobacco: Former Smokeless Tobacco: Never Tobacco Cessation:Counseling Given: Not Answered Comments:quit 2002 Alcohol Use Standard Drinks/Week Comments No 0 (1 standard drink = 0.6 oz pur e alcohol) Sex Assigned at Date Recorded Female 03/31/2021 9:19 AM E DT Job Start Date Occupation Industry Not on file Not on file Not on file Last Filed Vital Signs Vital Sign Reading Time Taken Comments Blood Pressure 134/73 04/22/2024 11:05 AM EDT Pulse 62 04/22/2024 11:05 AM EDT Temperature 36.4 ??C (97.6 ??F) 04/22/2024 11:05 AM E DT Respiratory Rate 16 04/22/2024 11:05 AM EDT Oxygen Saturation 96% 11/22/2022 11:08 AM EDT Inhaled Oxygen Concentration - - Weight 74.1 kg (163 lb 6.4 oz) 04/22/2024 11:05 AM EDT Height 149.9 cm (4' 11 ) 04/22/2024 11:05 AM EDT Body Mass Index 33 04/22/2024 11:05 AM EDT Plan of Treatment Health Maintenance Due Date Last Done Comments Covid-19 Vaccine (2022-08 4 season) 2024 05/25/2022, 02/06/2022, 02/06/2022, Additional history exists BMI CHECK/ADVISE 07/08/2024 10/01/2023, , 11/22/2022, Additional history exists COLON CANCER SCREENING 12/13/2024 12/13/2017, 2010 DEPRESSION SCREEN 04/22/2025 04/22/2024, , 11/17/2021, Additional history exists FALL RISK ASSESSMENT 04/22/2025 04/22/2024, 11/22/2022, 11/22/2022, Additional history exists MAMMOGRAM 04/22/2025 04/22/2024 (Refu sed), 06/19/2021 (Refused), 01/27/2016, Additional history exists BONE DENSITY SCREENING 04/13/2026 , 08/16/2021, 04/22/2017, Additional history exists CHOLESTEROL SCREENING 11/17/2026 11/17/2021 , 01/31/2021, 03/31/2015, Additional history exists DTAP/TDAP/TD (4 - Td or Tdap) 05/27/2029, 05/27/2019, 06/08/2009 HEPATITIS C SCREENING Completed 01/05/2014 SHINGLES VACCINE Completed 03/11/2018, 01/2018, 03/26/2015, Additional history exists PNEUMOCOCCAL VACCINE Completed 03/22/2020, 03/22/2019, 03/22/2019, Additional history exists INFLUENZA Completed 03/13/2024, 03/09, 03/30/2022, Additional history exists Advance Directives For more information, please contact: [phone] Documents on File Type Date Recorded Patient Power Plant Electrician Expl anation Health Care Proxy 12/07/2022 9:44 AM HEALTH CARE PROXY Care Teams Manager Pet Relationship Specialty Start Date End Date Cait Redd MD [address] [place] [address] PCP - General 01/11/09
== END 2024-08-17 09:43 | disposition home or self-care (01) ==
LOC: HO.HMGCX 09:42
PROVIDERS: PCP Internal Medicine; Visit Provider Internal Medicine
DX: M54.50 Low back pain, unspecified (principal); M41.9 Scoliosis, unspecified
CPT/HCPCS: 72110; 81003; 96127; 99202

== ENCOUNTER 2024-08-17 09:42 | Outpatient (AMB) | payer MEDICARE, SELFPAY ==
--- NOTE | 2024-08-17 09:54 | MHC.PC.OV ---
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 Intake Note: Pt is here today to [facility] care as a new patient/ Pt c/o Rt lower back pain [id number] Allergies No Known Allergies Allergy (Verified 08/17/24 10:10) Medication List - Last Reconciled 08/17/24 by Elsi Solano MD alendronate 70 mg PO QWEEK alpha lipoic acid 300 mg PO DAILY aspirin (Adult Low Dose Aspirin) 81 mg PO DAILY calcium carbonate 600 mg PO BID cholecalciferol (vitamin D3) 50 mcg PO DAILY fluoxetine 10 mg PO DAILY hydrochlorothiazide 25 mg PO DAILY metoprolol succinate ER 25 mg PO DAILY oxybutynin chloride ER 15 mg PO DAILY Tobacco use date assessed: 08/17/24 Fall risk assessment: No Falls in past year Last assessed Fall Risk: 08/17/24 Dental Screening Dental Screen Date: 08/17/24 Did you have a dental visit in the last 12 months?: Yes Did you have a dental problem in the last 6 months where you did not have access to dental care?: Yes Was dental information given to patient?: Patient has dentist [facility] Medical History (Updated 08/17/24 @ 10:31 by Elsi Solano MD) Scoliosis Lower back pain History of deep 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 1. Little interest or pleasure in doing things: not at all 2. Feeling down, depressed, or hopeless: not at all 3. Trouble falling or staying asleep, or sleeping too much: not at all 4. Feeling tired or having little energy: several days 5. Poor appetite or overeating: not at all 6. Feeling bad about yourself - or that you are a failure or have let yourself or your family down: not at all 7. Trouble concentrating on things, such as reading the newspaper or watching television: not at all 8. Moving or speaking so slowly that other people could have noticed. Or the opposite - being so fidgety or restless that you have been moving around a lot more than usual: not at all 9. Thoughts that you would be better off or of hurting yourself in some way: not at all Total score: 1 Source: Developed by Drs. Brad Medrano, Shweta Harrington, Eddie Del Rosario and colleagues, with an educational valentina from [employer]. Thrive Questionnaire Date Thrive assessed: 08/17/24 I am a: Patient What is your living situation today?: I have a steady place to live Within the past 12 months, did the food you bought not last and you didn't have the money to get more?: I choose not to answer this question Within the past 12 months, did you worry whether your food would run out before you got money to buy more?: I choose not to answer this question Do you have trouble paying for medicines?: No Do you have trouble getting transportation to medical appointments?: No Do you have trouble paying your heating and electricity bill?: No Do you have trouble taking care of your child, family member or friend?: No Do you have trouble with day-to-day activities such as bathing, preparing meals, shopping, managing finances, etc.?: No Are you currently unemployed and looking for a job?: No Are you interested in more education?: No Please select the resources that you would like help with: None Currently or been in a relationship where the following occur: No concerns reported THRIVE Score: 0 AUDIT C Alcohol Use Questionnaire (AUDIT-C) 1. How often do you have a drink containing alcohol?: Monthly or less 2. How many drinks containing alcohol do you have on a typical day when you are drinking?: 1 or 2 3. How often do you have six or more drinks on one occasion?: Never Total Score: 1 MUKESH-7 AMB Questionnaire MUKESH-7 Date MUKESH - 7 assessed: 08/17/24 Feeling nervous, anxious, or on edge: 0 = Not at all Not being able to stop or control worryin = Not at all Worrying too much about different things: 0 = Not at all Trouble relaxin = Not at all Being so restless that it is hard to sit still: 0 = Not at all Becoming easily annoyed or irritable: 1 = Several days Feeling afraid as if something awful might happen: 0 = Not at all Total MUKESH-7 score (0-4 normal; 5-9 mild; 10-14 moderate; 15-21 severe): 1 Source: Developed by Drs. Brad Medrano, Shweta Harrington, Eddie Del Rosario and colleagues, with an educational valentina from [employer]. Physical exam (Primary Care) Vital Signs: Last Vital Signs Temp 97.6 F 08/17/24 09:56 Pulse 72 08/17/24 09:56 Resp 12 08/17/24 09:56 BP 110/70 08/17/24 09:56 Pulse Ox 94 08/17/24 09:56 Oxygen Delivery Method Room Air 08/17/24 09:56 BMI result Body Mass Index 32.5 Tobacco/Smoking Status: Tobacco use Status Tobacco use date assessed 08/17/24 08/17/24 10:07 Patient Tobacco Use Status Former Tobacco user 08/17/24 10:07 e-Cigarette/Vaping Use Never Used 08/17/24 10:07 PHQ-9: PHQ-9 Score PHQ-9: Total score 1 08/17/24 09:56 Thrive Assessment: Date of Thrive Assessment Date Thrive assessed 08/17/24 08/17/24 10:07 Currently or been in a relationship where the following occur: No concerns reported Results AMB Urinalysis, Automated UA Leukoctes 0 Ayaz/uL Last Edit by Sophia Robles CMA on 08/17/24 10:15 UA Nitrite Negative Last Edit by Sophia Robles CMA on 08/17/24 10:15 UA Urobilinogen 0.2 mg/dL Last Edit by Sophia Robles CMA on 08/17/24 10:15 UA Protein 0 mg/dL Last Edit by Sophia Robles CMA on 08/17/24 10:15 UA pH 6.0 Last Edit by Sophia Robles, LAURITA on 08/17/24 10:15 UA Blood 0 Prashanth/uL Last Edit by Sophia Robles, LAURITA on 08/17/24 10:15 UA Specific Sulphur 1.020 Last Edit by Sophia Robles, TANK PROCESSOR on 08/17/24 10:15 UA Ketone Negative Last Edit by Sophia Robles, LAURITA on 08/17/24 10:15 UA Bilirubin 0 mg/dL Last Edit by Sophia Robles, TANK PROCESSOR on 08/17/24 10:15 UA Glucose 0 mg/dL Last Edit by Sophia Robles, TANK PROCESSOR on 08/17/24 10:15 Coding Level of Care Code New Pt Level 4 (55726) Diagnoses Lower back pain M54.50 Assessment & Plan Assessment & Plan (1) Lower back pain: Code(s): M54.50 - Low back pain, unspecified Category: Medical Orders: Orders AMB Urinalysis Automated Today Z13.9 - Encounter for screening, unspecified XR lumbar spine 4V min Today M41.9 - Scoliosis, unspecified, M54.50 - Low back pain, unspecified PT Evaluation and Treatment Today M54.50 - Low back pain, unspecified Medications: New celecoxib 200 mg PO DAILY PRN 30 caps 0RF pain
[2024-08-17 09:56] VITALS: BP 110/70; PULSE 72; RESP 12; TEMP 36.4; O2SAT 94; BMI 32.5
== END 2024-08-17 10:38 | disposition home or self-care (01) ==
PROVIDERS: PCP Internal Medicine; Visit Provider Internal Medicine
DX: Z13.9 Encounter for screening, unspecified (principal)

== ENCOUNTER → 2024-08-17 10:42 | Outpatient (BNV) | payer MEDICARE, SELFPAY | PROVIDERS: PCP Internal Medicine; Visit Provider Radiology Diagnostic Radiology | DX: M54.50 Low back pain, unspecified (principal) | CPT/HCPCS: 72110 ==

== ENCOUNTER 2024-09-07 08:07 | Outpatient (AMB) | payer MEDICARE, SELFPAY ==
[2024-09-07 08:12] VITALS: BP 122/78; PULSE 75; TEMP 36.5; O2SAT 95
--- NOTE | 2024-09-07 08:12 | AM.OFFWIN_ITS ---
Intake Vital Signs 09/07/24 08:12 Weight 162 lb BP 122/78 Blood Pressure Location Rt brachial Position Sitting Pulse 75 Pulse Source Pulse Oximeter Temp 97.7 F Temp Source Oral Pulse Oximetry (%) 95 Oxygen Delivery Method Room Air Intake Visit Reasons: EP-swollen vein/lt leg pain from a fall Intake Note: Patient fell on and since then she still has bruising, redness and warm to the touch on left leg Patient Tobacco Use Status: Former Tobacco user Allergies No Known Allergies Allergy (Verified 09/07/24 08:24) Do you need a note to return to daycare/school/sports/work: No HPI HPI Comments History of Present Illness Details History of Present Illness - The patient is a 74-year-old female pr esenting with painful left leg with discoloration and swelling. - The condition initiated after a fall o n Aug 25, leading to black and blue discoloration and swelling. - Compares current state to past leg inj ury approximately 10-12 years ago that resulted in deep vein thrombosis, requiring hospitalization and blood thinners which she took for a month then stopped. It was unprovoked as far as she remembers. - Describes current affected leg as hot, hard, with difficulty wearing clothes, and some pain upon specific movements. - No active cancer, recent long flights, or smoking adding to risk factors for clot formation; leads an active lifestyle contrary to presentation. - Endorses some sob with exertion but no t at rest. Physical Exam General: Cooperative, healthy appearing, comfortable, no acute distress and well developed Orientation: Patient oriented x3 Limitations: No limitations Head: Normal to inspection Ears: Hearing grossly normal bilaterally Nose: Normal external nose present Face and sinus: Normal facial exam Eyes: Appearance normal, both eyes and all related structures Neck: Normal visual inspection and Yes full ROM Respiratory: Normal respiratory effort and able to speak in complete sentences. Skin: as below Neuro: Patient oriented x3 Extremities: left leg calf area is indurated, erythematous, warm, and slightly more swollen compared to right leg. negative homans. [facility] Medical History (Updated 09/07/24 @ 08:44 by Marisol Moffett PA-C) Urinary incontinence History of hepatitis C History of gallstones Osteoporosis Cochlear implant in place Peripheral neuropathy Obesity Depression Osteoarthritis Closed fracture of base of metatarsal bone with delayed healing Scoliosis Lower back pain History of deep venous thrombosis (DVT) of distal vein of right lower extremity Family History (Updated 08/24/24 @ 02:19 by Elsi Solano MD) Brother Substance use disorder Daughter Mental health disorder Maternal Grandmother Diabetes mellitus Maternal Aunt Diabetes mellitus Mother Diabetes mellitus Father Bladder cancer Social History Housing: Apartment Patient Tobacco Use Status: Former Tobacco user e-Cigarette/Vaping Use: Never Used service: No Current occupational status: retired Current occupation: work part-time Cognitive needs: No Hearing needs: No Vision needs: Yes Review of Systems Const All systems reviewed & are unremarkable except as noted in HPI and below Physical Exam Vital Signs: Last Vital Signs Temp 97.7 F 09/07/24 08:12 Pulse 75 09/07/24 08:12 BP 122/78 09/07/24 08:12 Pulse Ox 95 09/07/24 08:12 Oxygen Delivery Method Room Air 09/07/24 08:12 Assessment & Plan Assessment & Plan (1) Pain and swelling of left lower leg: Code(s): M79.662 - Pain in left lower leg; M79.89 - Other specified soft tissue disorders Plan: Wells Score for DVT is a 4, high risk. VSS, pt well appearing. Considering her history of unprovoked deep vein thrombosis and the current symptoms indicating potential venous issues, an ultrasound is warranted to exclude thrombotic events as pt is not currently on a blood thinner. Pending appt for today for US. US for DVT is negative. 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 (2) Cellulitis: Code(s): L03.90 - Cellulitis, unspecified Qualifiers: Laterality: left Site of cellulitis: extremity Site of cellulitis of extremity: lower extremity Qualified Code(s): L03.116 - Cellulitis of left lower limb Plan: I will initiate antibiotic therapy based on the suspicion of cellulitis to tackle the infection in the patient's leg. Plan Patient was informed and verbally consented to the use of an ambient scribe for clinic note documentation during this visit. Orders: Orders US venous duplex LE LT Today M79.662 - Pain in left lower leg, M79.89 - Other specified soft tissue disorders Medications: New cephalexin 500 mg PO Q6H 28 caps 0RF 7 days Coding Level of Care Code Est Pt Level 5 (83822) Diagnoses Pain and swelling of left lower leg M79.662; M79.89 Cellulitis of left lower extremity L03.116 Laterality: left Site of cellulitis: extremity Site of cellulitis of extremity: lower extremity
--- OUTSIDE RECORDS SUMMARY | 2024-09-07 08:15 | XMS_ITS ---
Author Organization [facility] Address [address] [place] [address] Care Team Providers Care Security Representative Name Role Phone Ivania HOLLEY, Cait Wilde Primary Care Provider UnaMilady Moreno Unavailable [phone] Medications Medication SIG (Take, Route, Frequency, Duration) Notes Start Date End Date Status FLUoxetine HCl 10 MG TAKE 1 CAPSULE BY MOUTH DAILY Oral for 90 Days Active hydroCHLOROthiazide 25 MG TAKE 1 TABLET BY MOUTH DAILY Oral for 90 Days Active Metoprolol Succinate ER 25 MG TAKE 1 TAB LET BY MOUTH DAILY Oral for 90 Days Active oxyBUTYnin Chloride ER 15 MG TAKE 1 TABL ET BY MOUTH DAILY Oral for 90 Days Active Alendronate Sodium 70 MG TAKE 1 TABLET B Y MOUTH EVERY 7 DAYS Oral for 84 Days Active Vitamin D Active Vitamin C 500 MG as directed Orally Active Baby Aspirin 06/10/2023 Active Lipoic Acid Active Encounters Encounter Location Date Provider Diagnosis [facility] [address] [place] [address] 08/26/2024 Milady Vance Plan Of Treatment Next Appt Details Provider Name:Milady johnson, 11/10/2024 04:00:00 PM, [address] [place], [address], Progress Notes * Radha CARR ADOB: [birth year] (74 yo F)Acc No.[id number]:08/26/2024 Progress Note Patient:?Radha CARR Provider:?Milady Vance DPM :1950???Age:73 Y???Sex:Female D ate:08/26/2024 Address:[address] [facility], [address] [place] [address] raghav, [place], [id number] Pcp:Cait Redd MD Subjective: * Chief Complaints: * ??? * Medical History:?Anxiety, Ba ck pain, Cataracts, Hepatitis C, High blood pressure, Poor circulation, Measles. * Medications:?Taking Vitamin C 500 MG Capsule as directed [...] MOUTH EVERY 7 DAYS Oral Objective: * Vitals:? Assessment: Plan: * Treatment: * Images: * The named appointment provid er may or may not be the originator of this progress note, and it is not deemed complete until electronically signed by the appointment provider. Sign off status: Pending * Provider:?Milady Vance DPM Date:? Generated for Alesha mijares/Connor/Rosa on:?2024 08:15 AM EST
--- OUTSIDE RECORDS SUMMARY | 2024-09-07 08:15 | XMS_ITS ---
Author Organization [facility] Address [address] [place] [address] Care Team Providers Care Photoengraving Sketch Maker Name Role Phone Ivania HOLLEY, Dennisco Andry Primary Care Provider Unav Milady Infante Unavailable [phone] Allergies No Known Allergies REASON FOR VISIT At Risk Footcare, Painful Nail(s) aggrevated by shoes and causing difficulty standing/walking., Foot pain Medications Medication SIG (Take, Route, Frequency, Duration) Notes Start Date End Date Status Vitamin D Active Vitamin C 500 MG as directed Orally Active Metoprolol Succinate ER 25 MG TAKE 1 TAB LET BY MOUTH DAILY Oral for 90 Days Active oxyBUTYnin Chloride ER 15 MG TAKE 1 TABL ET BY MOUTH DAILY Oral for 90 Days Active Alendronate Sodium 70 MG TAKE 1 TABLET B Y MOUTH EVERY 7 DAYS Oral for 84 Days Active Baby Aspirin 06/10/2023 Active Lipoic Acid Active FLUoxetine HCl 10 MG TAKE 1 CAPSULE BY MOUTH DAILY Oral for 90 Days Active hydroCHLOROthiazide 25 MG TAKE 1 TABLET BY MOUTH DAILY Oral for 90 Days Active Social History Tobacco Use: Social History Observation Description Date Details (start date - stop date) Never Smoker NA - NA Tobacco Use/Smoking Question Answer Notes Are you a: nonsmoker Additional Findings: Tobacco Non-User Current no n-smoker Alcohol Screen Question Answer Notes Did you have a drink containing alcohol in the p ast year? No Points 0 Interpretation Negative Tobacco use other than smoking: Question Answer Notes Are you an other tobacco user? No Vital Signs Height 4ft 11in in 06/10/2024 Weight 165 lbs 06/10/2024 BMI 33.32 kg/m2 06/10/2024 Encounters Encounter Location Date Provider Diagnosis [facility] [address] [address] 06/10/2024 Milady Vance Pain in left foot M79.672 ; Metatarsalgia, left foot M77.42 ; Atherosclerosis of artery of both lower extremities I70.203 ; Tinea unguium B35.1 ; Pain in left toe(s) M79.675 ; Pain in right toe(s) M79.674 and Bursitis of intermetatarsal bursa of left foot M77.52 Assessments Encounter Date Diagnosis (ICD Code) Assessment Notes Treatment Notes Treatment Clinical Notes Section Notes 06/10/2024 Pain in left foot (ICD-10 - M79.672) 06/10/2024 Metatarsalgia, left foot (ICD-10 - M77.42) 06/10/2024 Atherosclerosis of artery of both lower extremities (ICD-10 - I70.203) 06/10/2024 Tinea unguium (ICD-10 - B35.1) 06/10/2024 Pain in left toe(s) (ICD-10 - M79.675) 06/10/2024 Pain in right toe(s) (ICD-10 - M79.674) 06/10/2024 Bursitis of intermetatarsal bursa of left foot (ICD-10 - M77.52) Plan Of Treatment Next Appt Details Follow Up: 2 Months, Reason: Provider Name:Milady Ponce johnson, 11/10/2024 04:00:00 PM, [address] [place] [address], [id number], Procedure Notes * Category Sub-Category Detail Notes Debride Nail 6-10 Nail debridement Performance o f this nail treatment by a nonprofessional would put this patients foot and overall health at risk. Therefore, debridement to affected nail(s), as described in exam, was performed extensively to reduce/remove overall nail length, girth, thickness, subungual debris, and necrotic tissue, by manual and/or electrical means through the use of a nail nipper and/or dremel-type perlite grinder, to a more viable healthy nail plate or bed tissue 6-10 nails in total. Silver nitrate was used for any petechial bleeding as necessary. Definitive antifungal treatment options, both pharmaceutical and surgical, have been reviewed and discussed with the patient. The patient solely prefers the use of intermittent/as needed professional debridement services for their nail condition and understands the need for additional periodic treatments to maintain effectiveness in symptomatic relief - 28805 Keratoma Treatment Parring or Cutting o f Benign Hyperkeratotic Lesion(s) (-57) More than 4 Lesions - The Benign hyperkeratotic lesions, ( 6 ) in total, locations as stated and described in exam, were pared, and/or cut utilizing a sterile 15 blade, tissue nippers, and/or power [employer] instrumentation - 41740 Progress Notes * Radha CARR ADOB: [birth year] (73 yo F)Acc No.[id number]:06/10/2024 Progress Note Patient:?Radha CARR Provider:?Milady Vance DPM :1950???Age:73 Y???Sex:Female D ate:06/10/2024 Address:[address] [place] [address], [address] [place], [place] [id number] Pcp:Cait Redd MD Subjective: * Chief Complaints: * ???At Risk FootcarePainful N ail(s) aggrevated by shoes and causing difficulty standing/walking.Foot pain * HPI: ???At Risk footcare:?Pt States Last PCP Visit:?Date?10/07/2023 ???Foot Pain:?Location:?Bottom, Forefoot, LEFT.?Aggravated:?standing , walking , job/occupation.?Treatments:?rest/alter normal daily activity, medicated callus pads.? * ROS:?General/Constitutional:?Nausea?denies.?Vomiting?denies.?Hunger Thirst?denies.?Loss appetite?denies.?Chills?denies.?Fatigue?denies.?Fever?denies.?Night Sweats?denies.?Unexplained weight loss?denies.?Unexplained weight gain?denies.?HEENTM:?Dentures?admits.?Dizziness?denies.?Glasses/contacts?admits.?Retinopathy?de nies.?Blurred/double vision?denies.?TMJ?denies.?Discharge/drainage?denies.?Implants?denies.?Sore throat?denies.?Dental implants?denies.?Hard of hearing ?admits.?Difficulty chewing/swallowing/speaking?denies.?Nose bleeds?denies.?Sore mouth?denies.?Respiratory:?On Oxygen?denies.?Pneumonia/pleurisy?denies.?Bronchitis?denies.?Emphysema?denies.?C oughing?denies.?Cough blood?denies.?Shortness of breath?admits.?Wheezing?denies.?Cardiovascular:?Pacemaker?denies.?MVP?denies.?WPW?denies.?CHF?denies.?Heart attack?denies.?Septal defect?denies.?Rapid beat?denies.?Chest pain ?denies.?Atrial Fib.?denies.?Murmur/Palpitations?denies.?Gastrointestinal:?Hemorrhoids?denies.?Stomach/Abdominal pain?denies.?Dark blood stool?denies.?Irritable bowel ?denies.?Constipation?denies.?Diarrhea?denies.?Hematology:?Swelling?denies.?Clots?denies.?Varicose Veins?admits.?Bruising?denies.?Bleeding problem?denies.?Genitourinary:?Blood urine?denies.?Frequent/Painfu/urination/bladder control?admits.?Kidney stones?denies.?Infection (UTI)?denies.?Nephropathy?denies.?sex trans dis (STD)?denies.?Prostate?denies.?Musculoskeletal:?Hammertoes?denies.?Bunions?denies.?Back Pain?admits.?Muscle Cramps/ Resting?denies.?Muscle cramps / walking?denies.?Generalized aches and pains?admits.?Weakness?denies.?Integ.:?Hassan?denies.?Scars?denies.?Corns/calluses?denies.?Ingrown nails?denies.?Painful nails?denies.?Open Sores?denies.?Rashes?denies.?Neurologic:?Difficulty sleeping?denies.?Brain disorder?denies.?Numbness?admits.?Balance trouble?denies.?Confusion?denies.?Fainting/blackouts?denies.?Tingling?admits.?Tr emors?denies.? * Medical History:? * Surgical History:?cataract s urgery 09/11/2015cataract surgery 11/23/2015 * Hospitalization/Major Diagno stic Procedure:?Denies Past Hospitalization * Family History:?Mother: dece ased, diagnosed with Diabetic - NIDDM.?Father: , poor circulation, diagnosed with Other malignant neoplasm of unspecified site.? * Social History:?Tobacco Use:?Tobacco Use/Smoking?Are you a:?nonsmoker ?Additional Findings: Tobacco Non-User?Current non-smoker ?Tobacco use other than smoking?Are you an other tobacco user??No ???Drugs/Alcohol:?Drugs?Have you used drugs other than those for medical reasons in the past 12 months??No ?Alcohol Screen?Did you have a drink containing alcohol in the past year??No ?Points?0 ?Interpretation?Negative ???Miscellaneous:?Caffeine: yes, 1/2 cups per day. ?Children: yes, 2. ?Exercise: yes, walking. ?Marital status: . 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 * Medications:?TakingVitamin C 500 MG Capsule as directed Orally Vitamin D Lipoic Acid Baby Aspirin hydroCHLOROthiazide 25 MG Tablet TAKE 1 TABLET BY MOUTH DAILY Oral FLUoxetine HCl 10 MG Capsule TAKE 1 CAPSULE BY MOUTH DAILY Oral oxyBUTYnin Chloride ER 15 MG Tablet Extended Release 24 Hour TAKE 1 TABLET BY MOUTH DAILY Oral Metoprolol Succinate ER 25 MG Tablet Extended Release 24 Hour TAKE 1 TABLET BY MOUTH DAILY Oral Alendronate Sodium 70 MG Tablet TAKE 1 TABLET BY MOUTH EVERY 7 DAYS Oral Medication List reviewed and reconciled with the patientTaking Vitamin C 500 MG Capsule as directed Orally Taking Vitamin D Taking Lipoic Acid Taking Baby Aspirin Taking hydroCHLOROthiazide 25 MG Tablet TAKE 1 TABLET BY MOUTH DAILY Oral Taking FLUoxetine HCl 10 MG Capsule TAKE 1 CAPSULE BY MOUTH DAILY Oral Taking oxyBUTYnin Chloride ER 15 MG Tablet Extended Release 24 Hour TAKE 1 TABLET BY MOUTH DAILY Oral Taking Metoprolol Succinate ER 25 MG Tablet Extended Release 24 Hour TAKE 1 TABLET BY MOUTH DAILY Oral Taking Alendronate Sodium 70 MG Tablet TAKE 1 TABLET BY MOUTH EVERY 7 DAYS Oral Medication List reviewed and reconciled with the patient * Allergies:?N.K.D.A.yes[Aller gies Verified] Objective: * Vitals:?Ht: 4ft 11in, Wt:165 , BMI:33.32, Shoe size: 7.5-8, Ht-cm: 149.86 cm, Wt- k.84 kg. * Examination: ???Vascular: ?DP PULSES(B):? 0/4, B/L.?PT PULSES(B):? 0/4, B/L.?CAPILLARY FILL TIME:? delayed, all digits, B/L.?TROPHIC CONDITION-TEXTURE/ELASTICITY/TURGOR/HAIR GROWTH(B):? decreased, B/L.?TEMPERTURE GRADIENT(C):? decreased, cool to cool, proximal to distal, B/L.?PIGMENTATION:?mottled, B/L.?CLAUDICATION(C):?denies, B/L.?REST PAIN:?denies, B/L.?Nails: ?NAILS are:? Elongated, overgrown, dystrophic, lytic, greater than 3mm thick, discolored and friable with crumbly malodorous subungual debris, with pain on palpation.?Dermatologic: ?SKIN FINDINGS:?Skin exam reveals Keratotic lesion(s) located at TA, T5, SUB MTH (s) 1 B/L Heels b/l,.?Orthopedic: ?MUSCLE STRENGTH:?5/5 all groups in a symmetrical fashion, B/L.?MPJ PATHOLOGY:?Atrophied anterior fat pad , Plantarflexed MT/MPJ , Pain, swelling, and inflammation to plantar MPJ(s) , 1st , LEFT.?Neurological: ?SENSORY:?Neurological exam reveals intact sensorium, pain sensation normal, vibration sensation intact, pinprick sensation is normal in the lower extremities, Pt denies, anesthesia, burning, paresthesia, tingling, B/L.?Neuroma Pain: ?PALPATION:?No interspace pain noted on palpation, LEFT.? Assessment: * Assessment: 1.?Metatarsalgia, left foot - M77.42 (Primary)???2.?Pain in left foot - M79.672???3.?Atherosclerosis of artery of both lower extremities - I70.203???4.?Tinea unguium - B35.1???5.?Pain in left toe(s) - M79.675? ?6.?Pain in right toe(s) - M79.674???7.?Bursitis of intermetatarsal bursa of left foot - M77.52??? Plan: * Treatment: * Procedures:?Debride Nail 6-10:?Nail debridement?Performance of this nail treatment by a nonprofessional would put this patients foot and overall health at risk. Therefore, debridement to affected nail(s), as described in exam, was performed extensively to reduce/remove overall nail length, girth, thickness, subungual debris, and necrotic tissue, by manual and/or electrical means through the use of a nail nipper and/or dremel-type perlite grinder, to a more viable healthy nail plate or bed tissue 6-10 nails in total. Silver nitrate was used for any petechial bleeding as necessary. Definitive antifungal treatment options, both pharmaceutical and surgical, have been reviewed and discussed with the patient. The patient solely prefers the use of intermittent/as needed professional debridement services for their nail condition and understands the need for additional periodic treatments to maintain effectiveness in symptomatic relief - 76265.?Keratoma Treatment:?Parring or Cutting of Benign Hyperkeratotic Lesion(s)?(-57) More than 4 Lesions - The Benign hyperkeratotic lesions, ( 6 ) in total, locations as stated and described in exam, were pared, and/or cut utilizing a sterile 15 blade, tissue nippers, and/or power dremel instrumentation - 54991.? * Procedure Codes:?77736 DEBRI DE NAIL, 6 OR MORE, Modifiers: XS 82883 TRIM SKIN LESIONS, OVER 4, Modifiers: XS , Q8 * Preventive Medicine:? ??Counseling:?Discussion:?-12: Office or other outpatient visit for the evaluation and management of an established patient, which required a medically appropriate history and/or examination and STRAIGHTFORWARD level of MEDICAL DECISION MAKING, 1 SELF-LIMITED OR MINOR PROBLEM, MINIMAL- NO AMOUNT/COMPLEXITY OF DATA TO BE REVIEWED/ANALYZED, AND MINIMAL RISK OF COMPLICATION/MORBIDITY. The visit on the day of the encounter encompassed interpreting the data and educating the patient as to the nature of their condition, treatment options available according to their individual PMH, meds, allergies, and overall health/living conditions, as well as any potential risks or complications that may occur from a failure to adhere to, and participate in, the recommended course of therapy. The discussion included a complete verbal, and/or written explanation of the examination results, any x-rays taken, the proposed diagnosis, and outline of the treatment plan. A schedule for future care needs was also explained. The patient verbalized an understanding of the instructions at this time and agreed to be an active participant in their treatment. If the patient should think of any questions or concerns after the visit, I have encouraged the patient to call the office.?Metatarsalgea:?I explained to the patient the possible etiologies of their Metatarsalgea Foot pain, including foot type/shoegear/activity level/exercise routine and the risks/benefits of all the different treatment options for pain including: No treatment at all, Rest, Ice, NSAIDs(only if well tolerated after meals), New/supportive Shoegear, Strappings and Tapings, Foot/Ankle AFO Bracing, Stretching exercises, Deep Tissue Massage, Arch support/shoe inserts, Custom orthoses, Topical analgesics including Aspercream/Voltaren gel, Physical Therapy, Cortisone injection therapy, EPAT/ESWT. Advantages and disadvantages of each option were discussed and the patients questions re: shoegear, custom vs prefabricated inserts, activity level, PO vs Topical medications (and their respective potential complications/drug interactions/side effects), and consistency in home treatment regimens for optimal success were answered to their verbally confirmed satisfaction.?Padding:?Recommend non medicated offloading pads.? * Follow Up:?2 Months * Images: * Sign off status: Completed true * Provider:?Milady Vance DPM Date:?10/2023 Generated for Alesha mijares/Connor/Rosa on:?2024 08:15 AM EST History and Physical Notes * HPI (History of Present Illness) Category Sub-Category Detail Notes Category Not es At Risk footcare Pt States Last PCP Visit: Date: 4 Foot Pain Location: Bottom, Forefoot, LEFT Aggravated: standing , walking , job/occupation Treatments: rest/alter normal da aslhee activity, medicated callus pads Examination Category Sub-Category Detail Notes Category Not es Neuroma Pain PALPATION: No interspace pa in noted on palpation, LEFT Neurological SENSORY: Neurological exa m reveals intact sensorium, pain sensation normal, vibration sensation intact, pinprick sensation is normal in the lower extremities, Pt denies, anesthesia, burning, paresthesia, tingling, B/L Dermatologic SKIN FINDINGS: Skin exam reveal s Keratotic lesion(s) located at TA, T5, SUB MTH (s) 1 B/L Heels b/l, Orthopedic MPJ PATHOLOGY: Atrophied anteri or fat pad , Plantarflexed MT/MPJ , Pain, swelling, and inflammation to plantar MPJ(s) , 1st , LEFT MUSCLE STRENGTH: 5/5 all groups in a symmetrical fashion, B/L Vascular DP PULSES (B): 0/4, B/L PT PULSES (B): 0/4, B/L CAPILLARY FILL TIME: delayed, all digits , B/L TEMPERTURE GRADIENT (C): decreased, cool to cool, proximal to distal, B/L TROPHIC CONDITION-TEXTURE/ELASTICITY/TURGOR/HAIR GROWTH (B): decreased, B/L CLAUDICATION (C): denies, B/L REST PAIN: denies, B/L PIGMENTATION: mottled, B/L Nails NAILS are: Elongated, overg rown, dystrophic, lytic, greater than 3mm thick, discolored and friable with crumbly malodorous subungual debris, with pain on palpation
--- OUTSIDE RECORDS SUMMARY | 2024-09-07 08:15 | XMS_ITS | Clinical Summary ---
Author Organization [facility] ity Address [address] [place] [address] Care Team Providers Care [employer] Tribunal Member Name Role Phone Cait Redd MD Primary Care Provider [phone] Allergies No known active allergies Medications metoprolol [...] 1 (one) time each day. 4 Active kijwjaky-btf-yh on-FA-vit K-lut (Centrum Silver Women) 8 mg [...] metatarsal fracture 11/10/2019 Overview (06/18/2024): Right Follows [facility] Osteoarthritis 06/03/2018 Overview (06/18/2024): Thoracic, & [...] surveillance OTHER SURGICAL HISTORY 12/25/2013 Left PROCEDURE: LA IMPLTJ/RPLCMT EMGNT BONE CNDJ DEV TEMPORAL BONE; [...] istory of thrombophlebitis; COMMENT: Aug 2010: At [facility] for saphenous vein thrombosis - calf to [...] union of metatarsal fracture; COMMENT: Right Follows [facility] Diverticulosis 12/17/2017 DX:Diverticulosi s; COMMENT: 12/13/17 CN, repeat 5 yrs for surveillance OAB (overactive bladder) 10/30/2016 DX:OAB (overactive bladder) Osteopenia 06/03/2018 DX:Osteopenia PVD (peripheral vascular dis [facility] 04/17/2017 DX:PVD (peripheral vascular disease) ([facility]) Tremor 09/25/2016 DX:Tremor Varicose veins of both [...] 11:00 AM EDT Office Visit [facility] [address], [place] [phone] Eze Rosales NP [address], [place] Health Maintenance Due Date Last Done Comments Social Influencers of Health Screening 06/09/2022 RSV Immunization Patients 60+ Years Old (1 - 1-dose 75+ series) 09/08/2023 COVID-19 Vaccine ( season) 2024 05/25/2022, 02/06/2022, 06/28/2021, Additional history exists Influenza Vaccine (#1) 2024 , 03/30/2022, 03/31/2021, Additional history exists Colorectal Cancer Screening: Colonoscopy 12/13/2024 12/13/2017 Hypertension/CHF/CAD Annual BMP Blood Test 04/01/2025 04/01/2024, 04/01/2024 Depression Screening 04/22/2025 04/22/2024 Falls Risk Assessment 04/22/2025 04/22/2024 Medicare Annual Wellness Visit 04/22/2025 04/22/2024 Cholesterol Screening (Lipid Panel) 11/17/2026 11/17/2021 DTaP,Tdap,and Td Vaccines (3 - Td or Tdap) 05/27/2029 05/27/2019, 06/08/2009 Osteoporosis Screening (Bone Density Screening) 04/13/2034 04/13/2024, [...] Results * Falls Risk Assessment (04/22/2024) Pathologist [facility] Falls Risk Assessment Abstracted us Historical Provider HEALTH MAINTENANCE Final Result * Depression Screening (04/22/2024) Pathologist [facility] HM Depression Screening Abstracted us Historical Provider HEALTH [...] IMPRESSION: ?? Osteoporosis by WHO criteria. The [facility] Department of Internal Medicine recommends using National [...] alternative screening schedule based on evangelina Oneal., [facility] July 26, 2011 for patients with [...] IMPRESSION: IMPRESSION: Osteoporosis by WHO criteria. The [facility] Department of Internal Medicine recommendsusing National Osteoporosis [...] alternative screening schedule based on evangelina Oneal., [facility] for patients with osteopenia (based [...] Result * Annual BMP Blood Test (04/01/2024) [facility] Annual BMP Blood Test Abstracted Result [facility] Nayla HOLLEY HEALTH MAINTENANCE Final Result * (ABNORMAL) Lipid panel (11/17/2021) [facility] LDL/HDL Ratio 3 0 - 4 Triglycerides 124 0 - 150 mg/dL Cholesterol 202(A) 0 - 200 mg/dL HDL 67 >=40 mg/dL LDL Cholesterol 111(A) 0 - 100 mg/dL Blood Venous blood specimen / Unknown Result [facility] Nayla HOLLEY LAB BLOOD ORDERABLES Caryl l Result * Colonoscopy (12/13/2017) [facility] Colonoscopy Abstracted. No Interpretation Anatomical Region Laterality Modality Other Result [facility] Nayla HOLLEY HEALTH MAINTENANCE Final Result * Hepatitis C Screening (01/05/2014) Hepatitis C Screening Abstracted us Historical Provider HEALTH MAINTENANCE Final Result from Last 3 Months or Most Recently Relevant to Health Maintenance Care Teams [place] Tribunal Member Relationship Specialty Start Date End Date Cait Redd MD [address] [place] [address] PCP - General 01/11/09
--- OUTSIDE RECORDS SUMMARY | 2024-09-07 08:15 | XMS_ITS ---
Author Organization [facility] Address [address] [place] [address] Care Team Providers Care Seal Delivery Vehicle Officer Name Role Phone Ivania HOLLEY, Cait Wilde Primary Care Provider Unav ailMilady Mishra [phone] REASON FOR VISIT r/s 08/26 Encounters Encounter Location Date Provider Diagnosis [address] [address] 08/25/2024 Milady Vance Plan Of Treatment Next Appt Details Provider Name:Milady johnson, 11/10/2024 04:00:00 PM, [address] [place] [address], [phone], Progress Notes * Radha CARR ADOB: [birth year] (73 yo F)Acc No.[id number]:08/25/2024 Patient:?Radha CARR :1950???Age:73 Y???Sex:Female Address:[address] [facility] [address], [place] [address] * true * Date:? Generated for Caseyi dyllan/Connor/eTransmitting on:?2024 08:15 AM EST
--- OUTSIDE RECORDS SUMMARY | 2024-09-07 08:16 | XMS_ITS | Patient Health Record ---
Author Organization [facility] Address [address] [place] [address] Care Team Providers Care Power Machine Operator Name Role Phone Ivania HOLLEY, Cait Wilde Primary Care Provider Unav ailMilady Mishra Unavailable [phone] Allergies No Known Allergies Reason For Referral No Information Medications Medication SIG (Take, Route, Frequency, Duration) [...] 7 DAYS Oral for 84 Days Active Social History Tobacco Use: Social [...] Are you an other tobacco user? No Problems Problem Type SNOMED Code ICD Code Onset Dates Problem Status W/U Status Risk Notes Problem [id number] Atherosclerosi s of artery of both lower extremities (I70.203) Active confirmed Vital Signs Height 4ft 11in in 06/10/2024 Weight 165 lbs 06/10/2024 BMI 33.32 kg/m2 06/10/2024 Encounters Encounter Location Date Provider Diagnosis [address] [address] 10/30/2023 Milady Vance Xerosis of skin L85. 3 ; Atherosclerosis of artery of both lower extremities I70.203 ; Tinea unguium B35.1 ; Pain in left toe(s) M79.675 and Pain in right toe(s) M79.[address] [address] 01/08/2024 Milady Vance Atherosclerosis of artery of both lower extremities I70.203 ; Tinea unguium B35.1 ; Pain in left toe(s) M79.675 and Pain in right toe(s) M79.[address] [address] 03/27/2024 Milady Vance Atherosclerosis of artery of both lower extremities I70.203 ; Tinea unguium B35.1 ; Pain in left toe(s) M79.675 ; Pain in right toe(s) M79.674 ; Pain in left foot M79.672 ; Pain in left ankle and joints of left foot M25.572 ; Bursitis of intermetatarsal bursa of left foot M77.52 and Metatarsalgia, left foot M77.[address] [address] 06/10/2024 Milady Pericalex Pain in left foot M79.672 ; Metatarsalgia, left foot M77.42 ; Atherosclerosis of artery of both lower extremities I70.203 ; Tinea unguium B35.1 ; Pain in left toe(s) M79.675 ; Pain in right toe(s) M79.674 and Bursitis of intermetatarsal bursa of left foot M77.[address] [address] 08/25/2024 Milady Vance Assessments Encounter Date Diagnosis (ICD Code) Assessment Notes Treatment Notes Treatment Clinical Notes Section Notes 10/30/2023 Xerosis of skin (ICD-10 - L85.3) 10/30/2023 Atherosclerosis of artery of both lower extremities (ICD-10 - I70.203) 01/08/2024 Tinea unguium (ICD-10 - B35.1) 01/08/2024 Atherosclerosis of artery of both lower extremities (ICD-10 - I70.203) 06/10/2024 Metatarsalgia, left foot (ICD-10 - M77.42) 03/27/2024 Atherosclerosis of artery of both lower extremities (ICD-10 - I70.203) 06/10/2024 Pain in left foot (ICD-10 - M79.672) 06/10/2024 Atherosclerosis of artery of both lower extremities (ICD-10 - I70.203) 03/27/2024 Tinea unguium (ICD-10 - B35.1) 01/08/2024 Pain in left toe(s) (ICD-10 - M79.675) 10/30/2023 Tinea unguium (ICD-10 - B35.1) 10/30/2023 Pain in left toe(s) (ICD-10 - M79.675) 01/08/2024 Pain in right toe(s) (ICD-10 - M79.674) 03/27/2024 Pain in left toe(s) (ICD-10 - M79.675) 06/10/2024 Tinea unguium (ICD-10 - B35.1) 06/10/2024 Pain in left toe(s) (ICD-10 - M79.675) 03/27/2024 Pain in right toe(s) (ICD-10 - M79.674) 10/30/2023 Pain in right toe(s) (ICD-10 - M79.674) 03/27/2024 Pain in left foot (ICD-10 - M79.672) 06/10/2024 Pain in right toe(s) (ICD-10 - M79.674) 06/10/2024 Bursitis of intermetatarsal bursa of left foot (ICD-10 - M77.52) 03/27/2024 Pain in left ankle and joints of left foot (ICD-10 - M25.572) 03/27/2024 Bursitis of intermetatarsal bursa of left foot (ICD-10 - M77.52) 03/27/2024 Metatarsalgia, left foot (ICD-10 - M77.42) Plan Of Treatment Next Appt Details Provider Name:Milady Alex johnson, 11/10/2024 04:00:00 PM, [address] [place], [address], Insurance Providers Payer Name Payer Address Payer Phone Subscriber Number Group Number Insured Name Patient Relationship to Insured Coverage Start Date Coverage End Date [facility] [address] [address] [place] [address] [id number] Radha Persaud Self - patient is the insured Medical (General) History Medical History History ICD Code Anxiety Back pain Cataracts Hepatitis C High blood pressure Poor circulation Measles Surgical History Surgery Date(Month/Year) cataract surgery 09/11/2015 cataract surgery 11/23/2015
== END 2024-09-07 09:36 | disposition home or self-care (01) ==
PROVIDERS: PCP Internal Medicine; Visit Provider Physician Assistant
DX: M79.662 Pain in left lower leg (principal); M79.89 Other specified soft tissue disorders; L03.116 Cellulitis of left lower limb

== ENCOUNTER 2024-09-07 08:55 | Outpatient (REF) | payer MEDICARE, SELFPAY ==
--- NOTE | ~2024-09-07 | US_ITS ---
EXAMINATION: US TRIPLEX LOWER EXTREMITY, LEFT CLINICAL INFORMATION: Pain, left lower extremity. COMPARISON: None available. TECHNIQUE: Color-flow triplex imaging with spectral analysis and compression Doppler were performed on the left lower extremity. FINDINGS: Respiratory variation, normal compression and augmented flow are noted throughout the visualized common femoral vein, superficial femoral vein, profunda femoral vein, popliteal vein and midcalf peroneal and posterior tibial venous.. There is no Rosales's cyst. US/US venous duplex LE IMPRESSION: No acute deep venous thrombosis involving the left lower extremity. Negative exam.. Electronically signed by: Soy Schmitz MD 09/07/2024 09:40 AM RACHEL
--- OUTSIDE RECORDS SUMMARY | 2024-09-07 09:30 | XMS_ITS | Clinical Summary ---
Author Organization [facility] ity Address [address] [place] [address] Care Team Providers Care Oil Field Laborer Name Role Phone Cait Redd MD Primary Care Provider [phone] Allergies No known active allergies Medications metoprolol [...] 1 (one) time each day. 4 Active udswqyzj-umi-uv on-FA-vit K-lut (Centrum Silver Women) 8 mg [...] metatarsal fracture 11/10/2019 Overview (06/18/2024): Right Follows [facility] Osteoarthritis 06/03/2018 Overview (06/18/2024): Thoracic, & [...] surveillance OTHER SURGICAL HISTORY 12/25/2013 Left PROCEDURE: [place] IMPLTJ/RPLCMT EMGNT BONE CNDJ DEV TEMPORAL BONE; [...] istory of thrombophlebitis; COMMENT: Aug 2010: At [facility] for saphenous vein thrombosis - calf [...] union of metatarsal fracture; COMMENT: Right Follows [facility] Diverticulosis 12/17/2017 DX:Diverticulosi s; COMMENT: 12/13/17 CN, repeat 5 yrs for surveillance OAB (overactive bladder) 10/30/2016 DX:OAB (overactive bladder) Osteopenia 06/03/2018 DX:Osteopenia PVD (peripheral vascular dis ease) ([facility]) 04/17/2017 DX:PVD (peripheral vascular disease) ([facility]) Tremor 09/25/2016 DX:Tremor Varicose veins of both [...] 11:00 AM EDT Office Visit Adult Medicine [facility] [address] [place], [place] [phone] Eze Rosales NP [address] [place], [place] Health Maintenance Due Date Last Done [...] Final Result * Depression Screening (04/22/2024) Pathologist [facility] HM Depression Screening Abstracted us Historical Provider [...] IMPRESSION: ?? Osteoporosis by WHO criteria. The [facility] Department of Internal Medicine recommends [...] alternative screening schedule based on evangelina Oneal., [facility] July 26, 2011 for patients [...] IMPRESSION: IMPRESSION: Osteoporosis by WHO criteria. The [facility] Department of Internal Medicine recommendsusing [...] alternative screening schedule based on evangelina Oneal., [facility] for patients with osteopenia [...] Result * Annual BMP Blood Test (04/01/2024) [facility] Annual BMP Blood Test Abstracted Result [facility] Nayla HOLLEY HEALTH MAINTENANCE Final Result * (ABNORMAL) Lipid panel (11/17/2021) [facility] LDL/HDL Ratio 3 0 - 4 Triglycerides 124 0 - 150 mg/dL Cholesterol 202(A) 0 - 200 mg/dL HDL 67 >=40 mg/dL LDL Cholesterol 111(A) 0 - 100 mg/dL Blood Venous blood specimen / Unknown Result [facility] Nayla HOLLEY LAB BLOOD ORDERABLES Caryl l Result * Colonoscopy (12/13/2017) [facility] Colonoscopy Abstracted. No Interpretation Anatomical Region Laterality Modality Other Result [facility] Nayla HOLLEY HEALTH MAINTENANCE Final Result * Hepatitis C Screening (01/05/2014) Hepatitis C Screening Abstracted us Historical Provider HEALTH MAINTENANCE Final Result from Last 3 Months or Most Recently Relevant to Health Maintenance Care Teams Oil Field Laborer Relationship Specialty Start Date End Date Cait Redd MD [address] [place] [address] PCP - General 01/11/09
== END 2024-09-07 08:56 | disposition home or self-care (01) ==
LOC: HO.HMGCX 08:55
PROVIDERS: PCP Internal Medicine; Visit Provider Physician Assistant
DX: M79.662 Pain in left lower leg (principal); R60.0 Localized edema; L03.116 Cellulitis of left lower limb
CPT/HCPCS: 93971

== ENCOUNTER → 2024-09-07 09:17 | Outpatient (BNV) | payer MEDICARE, SELFPAY | PROVIDERS: PCP Internal Medicine; Visit Provider Radiology Diagnostic Radiology | DX: M79.662 Pain in left lower leg (principal); M79.89 Other specified soft tissue disorders | CPT/HCPCS: 93971 ==

== ENCOUNTER 2024-09-18 10:33 | Outpatient (AMB) | payer MEDICARE, SELFPAY ==
--- NOTE | 2024-09-18 10:45 | AM.OFFWIN_ITS ---
Intake Vital Signs 09/18/24 10:49 Weight 162 lb 2 oz BP 118/74 Blood Pressure Location Rt brachial Position Sitting Pulse 67 Pulse Source Pulse Oximeter Pulse Oximetry (%) 98 Oxygen Delivery Method Room Air Intake Visit Reasons: EP Cellulitis on leg did not clear up Intake Note: Patient here for cellulitis not completely cleared up after finishing antibiotics. Patient Tobacco Use Status: Former Tobacco user Allergies No Known Allergies Allergy (Verified 09/07/24 08:24) HPI HPI Comments History of Present Illness Details This is a 74-year-old female who presented to the walk-in clinic complaining of persistent swelling and erythema of the left lower extremity. She was seen at the walk-in clinic on 09/07/2024 with discoloration and swelling over left lower extremity following a fall that occurred on 08/25/2024. She was diagnosis cellulitis at that time and she was given PO cephalexin 500 mg every 6 hours x7 days, which she completed 3 days ago. Patient states that her symptoms have significantly improved although she continues to have swelling and erythema of the left lower extremity. She states her symptoms have not worsened over the past 3 days since she completed her antibiotics. She denies any fevers or chills. She denies any new trauma or injury to the area. She denies any recent travel, recent surgeries, or recent immobilization. [facility] Medical History (Updated 09/07/24 @ 08:44 by Marisol Moffett PA-C) Urinary incontinence History of hepatitis C History of gallstones Osteoporosis Cochlear implant in place Peripheral neuropathy Obesity Depression Osteoarthritis Closed fracture of base of metatarsal bone with delayed healing Scoliosis Lower back pain History of deep venous thrombosis (DVT) of distal vein of right lower extremity Family History (Updated 08/24/24 @ 02:19 by Elsi Solano MD) Brother Substance use disorder Daughter Mental health disorder Maternal Grandmother Diabetes mellitus Maternal Aunt Diabetes mellitus Mother Diabetes mellitus Father Bladder cancer Social History Housing: Apartment Patient Tobacco Use Status: Former Tobacco user e-Cigarette/Vaping Use: Never Used service: No Current occupational status: retired Current occupation: work part-time Cognitive needs: No Hearing needs: No Vision needs: Yes Review of Systems Const All systems reviewed & are unremarkable except as noted in HPI and below Reports no additional complaints Eyes Reports no additional complaints ENT Reports no additional complaints Card Reports no additional complaints Resp Reports no additional complaints GI Reports no additional complaints Reports no additional complaints Musc Reports no additional complaints Skin/Breast Reports system reviewed and no additional complaints, except as documented Neuro Reports no additional complaints Psych Reports no additional complaints Endo Reports no additional complaints Ehsan/Lymph Reports no additional complaints Aller/Immun Reports no additional complaints Physical Exam Vital Signs: Last Vital Signs Pulse 67 09/18/24 10:49 BP 118/74 09/18/24 10:49 Pulse Ox 98 09/18/24 10:49 Oxygen Delivery Method Room Air 09/18/24 10:49 Const Other: Vital signs reviewed. Constitutional: Non-toxic appearing. No acute distress. Well-developed and well-nourished. HEENT: Normocephalic and atraumatic. Skin: There is erythema, edema, and diffuse induration of the left lower extremity extending from the ankle to just distal to the left knee without focal area of fluctuance or induration. Neck: Full and painless range of motion. No cervical lymphadenopathy. Cardio: Regular rate. 1 to 2+ pitting edema of the left lower extremity. No JVD. No calf tenderness to palpation negative Homans sign. Pulmonary: No respiratory distress. No accessory muscle usage. Gastrointestinal: Soft, nontender, and nondistended in all 4 quadrants. Musculoskeletal: Normal range of motion in joints throughout the body. No deformity or other signs of injury. Neuro: Alert and oriented x4. Cranial nerves 2-12 grossly intact. No focal deficits appreciated. Psych: Normal mood and affect. Assessment & Plan Assessment & Plan (1) Cellulitis of left lower extremity: Code(s): L03.116 - Cellulitis of left lower limb Plan: This is a 74-year-old female who presented to the walk-in clinic complaining of persistent swelling and erythema of the left lower extremity despite antibiotic treatment with PO cephalexin 500 mg every 6 hours x7 days. Patient states the swelling and erythema have significantly improved although have not resolved. She has no fevers or chills or systemic symptoms. She underwent an ultrasound venous duplex of the left lower extremity on 09/07/2024, which was negative for DVT. Patient appears to have improving but persistent cellulitis of the left lower extremity. She was given a prescription for PO cephalexin 500 mg every 6 hours for an additional 3 days. She was advised to proceed directly to the emergency room if she were to develop worsening/spreading erythema, fever/chills, systemic symptoms, lymphangitic streaking, or worsening swelling of her left lower extremity. She verbalized her understanding and she is in agreement with the plan. Medications: Changed From cephalexin 500 mg PO Q6H 7 days 28 caps 0RF To cephalexin 500 mg PO Q6H 3 days 12 caps 0RF Coding Level of Care Code Est Pt Level 3 (90294) Diagnoses Cellulitis of left lower extremity L03.116
[2024-09-18 10:49] VITALS: BP 118/74; PULSE 67; O2SAT 98
--- OUTSIDE RECORDS SUMMARY | 2024-09-18 12:00 | XMS_ITS ---
Author Organization [facility] Address [address] [place] [address] Care Team Providers Care Managed Care Analyst Name Role Phone Ivania HOLLEY, Cait Wiled Primary Care Provider Unav ailable Milady Vance [phone] REASON FOR VISIT r/s 08/26 Encounters Encounter Location Date Provider Diagnosis [address] [address] 08/25/2024 Milady Vance Plan Of Treatment Next Appt Details Provider Name:Milady johnson, 10/23/2024 10:00:00 AM, [address] [place], [address], Progress Notes * Radha CARR ADOB: [birth year] (73 yo F)Acc No.[id number]:08/25/2024 Patient:?Radha CARR :1950???Age:73 Y???Sex:Female Address:[address] [facility] [facility] r, [place] [address] * true * Date:? Generated for Printi dyllan/Connor/eTransmitting on:?09/18/2024 12:00 PM EDT
--- OUTSIDE RECORDS SUMMARY | 2024-09-18 12:00 | XMS_ITS ---
Author Organization [facility] Address [address] [place] [address] Care Team Providers Care Technician Submarine Cable Equipment Name Role Phone Ivania HOLLEY, Dennisma Andry Primary Care Provider Unav Milady Infante Unavailable [phone] Allergies No Known Allergies REASON FOR VISIT [...] 06/10/2024 Encounters Encounter Location Date Provider Diagnosis [facility] [address] [place] [address] 06/10/2024 Milady Vance Pain in left foot [...] Follow Up: 2 Months, Reason: Provider Name:Milady johnson, 10/23/2024 10:00:00 AM, [address] [place] [address], [address], Procedure Notes * Category Sub-Category Detail Notes [...] use of a nail nipper and/or dremel-type contact lens curve grinder, to a more viable healthy nail [...] to maintain effectiveness in symptomatic relief - 88331 Keratoma Treatment Parring or Cutting o f Benign Hyperkeratotic Lesion(s) (-57) More than 4 Lesions - The Benign hyperkeratotic lesions, ( 6 ) in total, locations as stated and described in exam, were pared, and/or cut utilizing a sterile 15 blade, tissue nippers, and/or power A's Child instrumentation - 72356 Progress Notes * Radha CARR ADOB: [birth year] (73 yo F)Acc No.[id number]:06/10/2024 Progress Note Patient:?Radha CARR Provider:?Milady Vance DPM :1950???Age:73 Y???Sex:Female D ate:06/10/2024 Address:[address] [place] [address], [address] [place], [place] [id number] Pcp:Cait Redd MD Subjective: * Chief Complaints: [...] walking. ?Marital status: . 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 * Medications:?TakingVitamin C 500 MG Capsule as [...] use of a nail nipper and/or dremel-type contact lens curve grinder, to a more viable healthy nail [...] to maintain effectiveness in symptomatic relief - 27304.?Keratoma Treatment:?Parring or Cutting of Benign Hyperkeratotic Lesion(s)?(-57) More than 4 Lesions - The Benign hyperkeratotic lesions, ( 6 ) in total, locations as stated and described in exam, were pared, and/or cut utilizing a sterile 15 blade, tissue nippers, and/or power dremel instrumentation - 45154.? * Procedure Codes:?42822 DEBRI DE NAIL, 6 OR MORE, Modifiers: XS 98214 TRIM SKIN LESIONS, OVER 4, Modifiers: XS [...] Vance DPM Date:?10/2023 Generated for Alesha mijares/Connor/Rosa on:?09/18/2024 12:00 PM EDT History and Physical Notes * HPI (History of Present Illness) Category Sub-Category Detail Notes Category Not es At Risk footcare Pt States Last PCP Visit: Date: 4 Foot Pain Location: Bottom, Forefoot, LEFT Aggravated: standing , walking , job/occupation Treatments: rest/alter normal da ashlee activity, medicated callus pads Examination Category Sub-Category [...]
--- OUTSIDE RECORDS SUMMARY | 2024-09-18 12:00 | XMS_ITS | Clinical Summary ---
Author Organization [facility] ity Address [address] [place] [address] Care Team Providers Care Lithograph Operator Name Role Phone Cait Redd MD Primary Care Provider [phone] Allergies No known active allergies Medications metoprolol [...] 1 (one) time each day. 4 Active nzyqcyau-mzt-zg on-FA-vit K-lut (Centrum Silver Women) 8 mg [...] metatarsal fracture 11/10/2019 Overview (06/18/2024): Right Follows [facility] Osteoarthritis 06/03/2018 Overview (06/18/2024): Thoracic, & [...] surveillance OTHER SURGICAL HISTORY 12/25/2013 Left PROCEDURE: [place] IMPLTJ/RPLCMT EMGNT BONE CNDJ DEV TEMPORAL BONE; [...] istory of thrombophlebitis; COMMENT: Aug 2010: At [facility] for saphenous vein thrombosis - calf [...] union of metatarsal fracture; COMMENT: Right Follows [facility] Diverticulosis 12/17/2017 DX:Diverticulosi s; COMMENT: 12/13/17 CN, repeat 5 yrs for surveillance OAB (overactive bladder) 10/30/2016 DX:OAB (overactive bladder) Osteopenia 06/03/2018 DX:Osteopenia PVD (peripheral vascular dis ease) ([facility]) 04/17/2017 DX:PVD (peripheral vascular disease) ([facility]) Tremor 09/25/2016 DX:Tremor Varicose veins of both [...] 11:00 AM EDT Office Visit Adult Medicine [facility] [address] [place], [place] [phone] Eze Rosales NP [address] [place], [place] Health Maintenance Due Date Last Done [...] Results * Falls Risk Assessment (04/22/2024) Pathologist [facility] Falls Risk Assessment Abstracted us Historical Provider HEALTH MAINTENANCE Final Result * Depression Screening (04/22/2024) Pathologist [facility] HM Depression Screening Abstracted us Historical Provider [...] IMPRESSION: ?? Osteoporosis by WHO criteria. The [facility] Department of Internal Medicine recommends using National [...] alternative screening schedule based on evangelina Oneal., [facility] July 26, 2011 for patients [...] IMPRESSION: IMPRESSION: Osteoporosis by WHO criteria. The [facility] Department of Internal Medicine recommendsusing National Osteoporosis [...] alternative screening schedule based on evangelina Oneal., [facility] for patients with osteopenia [...] Result * Annual BMP Blood Test (04/01/2024) [facility] Annual BMP Blood Test Abstracted Result [facility] aNyla HOLLEY HEALTH MAINTENANCE Final Result * (ABNORMAL) Lipid panel (11/17/2021) [facility] LDL/HDL Ratio 3 0 - 4 Triglycerides 124 0 - 150 mg/dL Cholesterol 202(A) 0 - 200 mg/dL HDL 67 >=40 mg/dL LDL Cholesterol 111(A) 0 - 100 mg/dL Blood Venous blood specimen / Unknown Result [facility] Nayla HOLLEY LAB BLOOD ORDERABLES Caryl l Result * Colonoscopy (12/13/2017) [facility] Colonoscopy Abstracted. No Interpretation Anatomical Region Laterality Modality Other Result [facility] Nayla HOLLEY HEALTH MAINTENANCE Final Result * Hepatitis C Screening (01/05/2014) Hepatitis C Screening Abstracted us Historical Provider HEALTH MAINTENANCE Final Result from Last 3 Months or Most Recently Relevant to Health Maintenance Care Teams Lithograph Operator Relationship Specialty Start Date End Date Cait Redd MD [address] [place] [address] PCP - General 01/11/09
--- OUTSIDE RECORDS SUMMARY | 2024-09-18 12:00 | XMS_ITS ---
Author Organization [facility] Address [address] [place] [address] Care Team Providers Care Shoe Reconditioner Name Role Phone Ivania HOLLEY, Cait Wilde Primary Care Provider UnaMilady Moreno Unavailable [phone] Medications Medication SIG (Take, Route, Frequency, Duration) [...] Active Encounters Encounter Location Date Provider Diagnosis [facility] [address] [place] [address] 08/26/2024 Milady Vance Plan Of Treatment Next Appt Details Provider Name:Milady johnson, 10/23/2024 10:00:00 AM, [address] [place], [address], Progress Notes * Radha CARR ADOB: [birth year] (74 yo F)Acc No.[id number]:08/26/2024 Progress Note Patient:?Radha CARR Provider:?Milady Vance DPM :1950???Age:73 Y???Sex:Female D ate:08/26/2024 Address:[address] [facility], [address] [place] [address] raghav, [place], [facility] Pcp:Cait Redd MD Subjective: * Chief Complaints: [...] Vance DPM Date:? Generated for Alesha mijares/Connor/Rosa on:?09/18/2024 12:00 PM EDT
--- OUTSIDE RECORDS SUMMARY | 2024-09-18 12:00 | XMS_ITS | Patient Health Record ---
Author Organization [facility] Address [address] [facility] [place] [address] Care Team Providers Care Station Master Name Role Phone Ivania HOLLEY, Cait Wilde Primary Care Provider Unav ailMilady Mishra Unavailable [phone] Allergies No Known Allergies Reason For Referral [...] Problem Status W/U Status Risk Notes Problem [id number] Atherosclerosi s of artery of both lower extremities (I70.203) Active confirmed Vital Signs Height 4ft 11in in 06/10/2024 Weight 165 lbs 06/10/2024 BMI 33.32 kg/m2 06/10/2024 Encounters Encounter Location Date Provider Diagnosis [address] [address] 10/30/2023 Milady Vance Xerosis of skin L85. 3 ; Atherosclerosis of artery of both lower extremities I70.203 ; Tinea unguium B35.1 ; Pain in left toe(s) M79.675 and Pain in right toe(s) M79.[address] [address] 01/08/2024 Milady Vance Atherosclerosis of artery of both lower extremities I70.203 ; Tinea unguium B35.1 ; Pain in left toe(s) M79.675 and Pain in right toe(s) M79.[address] [address] 03/27/2024 Milady Vance Atherosclerosis of artery of both lower extremities I70.203 ; Tinea unguium B35.1 ; Pain in left toe(s) M79.675 ; Pain in right toe(s) M79.674 ; Pain in left foot M79.672 ; Pain in left ankle and joints of left foot M25.572 ; Bursitis of intermetatarsal bursa of left foot M77.52 and Metatarsalgia, left foot M77.[address] [address] 06/10/2024 Milady Pericalex Pain in left foot M79.672 ; Metatarsalgia, left foot M77.42 ; Atherosclerosis of artery of both lower extremities I70.203 ; Tinea unguium B35.1 ; Pain in left toe(s) M79.675 ; Pain in right toe(s) M79.674 and Bursitis of intermetatarsal bursa of left foot M77.[address] [address] 08/25/2024 Milady Vance Assessments Encounter Date Diagnosis [...] Of Treatment Next Appt Details Provider Name:Milady Johnson Tatyana johnson, 10/23/2024 10:00:00 AM, [address] [place], [address], Insurance Providers Payer Name Payer Address Payer Phone Subscriber Number Group Number Insured Name Patient Relationship to Insured Coverage Start Date Coverage End Date [id number] [address] [address] [place] [address] [id number] Radha Persaud Self - patient is the insured Medical (General) History Medical History History ICD Code Anxiety Back pain Cataracts Hepatitis C High blood pressure Poor circulation Measles Surgical History Surgery Date(Month/Year) cataract surgery 09/11/2015 cataract surgery 11/23/2015
== END 2024-09-18 12:17 | disposition home or self-care (01) ==
PROVIDERS: PCP Internal Medicine; Visit Provider Physician Assistant Medical
DX: L03.116 Cellulitis of left lower limb (principal)

== ENCOUNTER → 2024-09-18 10:33 | Outpatient (BNVA) | payer MEDICARE, SELFPAY | PROVIDERS: PCP Internal Medicine; Visit Provider Physician Assistant Medical | DX: L03.116 Cellulitis of left lower limb (principal) | CPT/HCPCS: 99212 ==

== ENCOUNTER 2024-09-25 10:35 | Outpatient (AMB) | payer MEDICARE, SELFPAY ==
[2024-09-25 10:44] VITALS: BP 120/80; PULSE 55; O2SAT 95
--- NOTE | 2024-09-25 10:44 | MHC.OFFWIV ---
Intake Vital Signs 09/25/24 10:44 Weight 163 lb BP 120/80 Blood Pressure Location Rt brachial Position Sitting Pulse 55 Pulse Source Pulse Oximeter Pulse Oximetry (%) 95 Oxygen Delivery Method Room Air Intake Visit Reasons: EP-lt leg cellulitis Intake Note: Patient here for left leg cellulitis that is still present and warm to the touch. Patient Tobacco Use Status: Former Tobacco user Allergies No Known Allergies Allergy (Verified 09/25/24 10:53) Do you need a note to return to daycare/school/sports/work: No HPI HPI Comments History of Present Illness Details This is a 74-year-old female who presented to the walk-in clinic complaining of persistent left lower extremity swelling and erythema. She was seen at the walk-in clinic on 09/07/2024 with discoloration and swelling over left lower extremity following a fall that occurred on 08/25/2024. She was diagnosed with cellulitis at that time and she was given PO cephalexin 500 mg every 6 hours x7 days. She was then evaluated at the walk-in clinic on 09/18/2024 due to persistent erythema of the left lower extremity and she was given an additional 3 days of PO cephalexin 500 mg every 6 hours, which she completed 3-4 days ago. Patient is re-presenting today due to persistent erythema and swelling of the left lower extremity despite antibiotic therapy. She continues to deny any fevers or chills. She denies any pain to the left lower extremity. She denies any new trauma or injury. She denies any worsening swelling of the left lower extremity but states that the swelling has not improved. COUNTS INCLUDE 234 BEDS AT THE [facility] Medical History (Updated 09/22/24 @ 09:30 by Elsi Solano MD) OAB (overactive bladder) Urinary incontinence History of hepatitis C History of gallstones Osteoporosis Cochlear implant in place Peripheral neuropathy Obesity Depression Osteoarthritis Closed fracture of base of metatarsal bone with delayed healing Scoliosis Lower back pain History of deep venous thrombosis (DVT) of distal vein of right lower extremity Family History (Updated 08/24/24 @ 02:19 by Elsi Solano MD) Brother Substance use disorder Daughter Mental health disorder Maternal Grandmother Diabetes mellitus Maternal Aunt Diabetes mellitus Mother Diabetes mellitus Father Bladder cancer Social History Housing: Apartment Patient Tobacco Use Status: Former Tobacco user e-Cigarette/Vaping Use: Never Used service: No Current occupational status: retired Current occupation: work part-time Cognitive needs: No Hearing needs: No Vision needs: Yes Review of Systems Const All systems reviewed & are unremarkable except as noted in HPI and below Reports no additional complaints Eyes Reports no additional complaints ENT Reports no additional complaints Card Reports no additional complaints Resp Reports no additional complaints GI Reports no additional complaints Reports no additional complaints Musc Reports no additional complaints Skin/Breast Reports system reviewed and no additional complaints, except as documented Neuro Reports no additional complaints Psych Reports no additional complaints Endo Reports no additional complaints Ehsan/Lymph Reports no additional complaints Aller/Immun Reports no additional complaints Physical Exam Vital Signs: Last Vital Signs Pulse 55 09/25/24 10:44 BP 120/80 09/25/24 10:44 Pulse Ox 95 09/25/24 10:44 Oxygen Delivery Method Room Air 09/25/24 10:44 Const Other: Vital signs reviewed. Constitutional: Non-toxic appearing. No acute distress. Well-developed and well-nourished. HEENT: Normocephalic and atraumatic. Skin: Warm and dry. Persistent but improved erythema of the left lower extremity with some peeling skin. There is mild induration of the left lower extremity. Negative Nahomy's sign. Neck: Full and painless range of motion. No cervical lymphadenopathy. Cardio: Regular rate. No JVD. Pulmonary: No respiratory distress. No accessory muscle usage. Gastrointestinal: Soft, non-tender, and non-distended in all 4 quadrants. Musculoskeletal: Normal range of motion in joints throughout the body. No deformity or other signs of injury. Neuro: Alert and oriented x4. Cranial nerves 2-12 grossly intact. No focal deficits appreciated. Psych: Normal mood and affect. Assessment & Plan Assessment & Plan (1) Cellulitis of left lower extremity: Code(s): L03.116 - Cellulitis of left lower limb Plan: This is a 74-year-old female who presented to the walk-in clinic complaining of persistent left lower extremity swelling and erythema despite 10-day course of PO cephalexin. Patient appears to have moderate improvement of her cellulitis although there is persistent swelling and erythema of the left lower extremity. Low suspicion for DVT as patient had a negative ultrasound on 09/07/2024 and she does not have any worsening swelling or calf pain/tenderness and a negative Homans sign. Patient given PO trimethoprim/sulfamethoxazole 160/800 mg twice daily x7 days for more coverage given persistent symptoms. She was advised to proceed directly to the emergency room if she were to develop worsening/spreading erythema, fever/chills, systemic symptoms, lymphangitic streaking, or worsening swelling of her left lower extremity. She verbalized her understanding and she is in agreement with the plan. Medications: New sulfamethoxazole-trimethoprim 800-160 mg (Bactrim DS) 1 tab PO BID 14 tabs 0RF Coding Level of Care Code Est Pt Level 3 (07266) Diagnoses Cellulitis of left lower extremity L03.116
--- OUTSIDE RECORDS SUMMARY | 2024-09-25 12:40 | XMS_ITS | Encounter Summary ---
Author Organization [facility] Address [address] [place] [address] Care Team Providers Care Job Estimator Name Role Phone Cait Redd MD Primary Care Provider [phone] Encounter Details Date Type Department Care Team Description 04/26/2015 Pt. Non Urgent Medical Question Adult Medicine [facility] [address] [place] [address] [phone] Cait Redd MD [address] [place] [address] [phone] Social History Tobacco Use Types Packs/Day Years [...] on filedocumented in this encounter Care Teams Job Estimator Relationship Specialty Start Date End Date Cait Redd MD [address] [place] [phone] PCP - General 01/11/09 documented as of this encounter
--- OUTSIDE RECORDS SUMMARY | 2024-09-25 12:40 | XMS_ITS | Encounter Summary ---
Author Organization [facility] Address [address] [place] [address] Care Team Providers Care Apple Picker Name Role Phone Cait Redd MD Primary Care Provider [phone] Encounter Details Date Type Department Care Team Description 08/27/2010 Hospital Medical Records [address] [place] [address] Huong Choi Social History Tobacco Use Types Packs/Day Years [...] on filedocumented in this encounter Care Teams Apple Picker Relationship Specialty Start Date End Date Cait Redd MD [address] [place] [address] [phone] PCP - General 01/11/09 documented as of this encounter
--- OUTSIDE RECORDS SUMMARY | 2024-09-25 12:40 | XMS_ITS | Encounter Summary ---
Author Organization [facility] Address [address] [place] [address] Care Team Providers Care Automotive Service Manager Name Role Phone Cait Redd MD Primary Care Provider [phone] Encounter Details Date Type Department Care Team Description 03/30/2020 Pt. Non Urgent Medical Question Adult Medicine [facility] [address] [place] [address] Salvatore Norman FNP [address] [place] [address] Social History Tobacco Use Types Packs/Day Years [...] shots. I left it at Dr. Redd's manager front. Have you received it yet? I just checked today and the shots are listed as overdue. Thank you, Radha documented in this encounter Plan of Treatment Not on file documented as of this encounter Visit Diagnoses Not on filedocumented in this encounter Care Teams Automotive Service Manager Relationship Specialty Start Date End Date Cait Redd MD [address] [place] [phone] PCP - General 01/11/09 documented as of this encounter
--- OUTSIDE RECORDS SUMMARY | 2024-09-25 12:40 | XMS_ITS | Encounter Summary ---
Author Organization [facility] Address [address] [place] [address] Care Team Providers Care Rope Twisting Machine Operator Name Role Phone Cait Redd MD Primary Care Provider [phone] Encounter Details Date Type Department Care Team Description 04/06/2015 Release of Information Medical Records [address] [place] [address] Abstract, Provider Social History Tobacco Use Types [...] on filedocumented in this encounter Care Teams Rope Twisting Machine Operator Relationship Specialty Start Date End Date Cait Redd MD [address] [place] [address] [phone] PCP - General 01/11/09 documented as of this encounter
--- OUTSIDE RECORDS SUMMARY | 2024-09-25 12:40 | XMS_ITS | Encounter Summary ---
Author Organization [facility] Address [address] [place] [address] Care Team Providers Care Obstetrical Anesthesiologist Name Role Phone Cait Redd MD Primary Care Provider [phone] Encounter Details Date Type Department Care Team Description 06/27/2023 Walk In Clinic Visit Medical Records [address] [place] [address] Lolis Balderrama DO Social History Tobacco Use [...] on filedocumented in this encounter Care Teams Obstetrical Anesthesiologist Relationship Specialty Start Date End Date Cait Redd MD [address] [place], [place] [phone] PCP - General 01/11/09 documented as of this encounter
--- OUTSIDE RECORDS SUMMARY | 2024-09-25 12:40 | XMS_ITS | Encounter Summary ---
Author Organization [facility] Address [address] [place] [address] Care Team Providers Care Program Professional Name Role Phone Cait Redd MD Primary Care Provider [phone] Encounter Details Date Type Department Care Team Description 11/27/2019 Telephone Adult Medicine - [place] [address] [place] [address] Margy Woodard MD [address] [place] [address] Social History Tobacco Use Types Packs/Day Years [...] on filedocumented in this encounter Care Teams Program Professional Relationship Specialty Start Date End Date Cait Redd MD [address] [place] [address] PCP - General 01/11/09 documented as of this encounter
--- OUTSIDE RECORDS SUMMARY | 2024-09-25 12:40 | XMS_ITS | Encounter Summary ---
Author Organization [facility] Address [address] [place] [address] Care Team Providers Care Electric Motor Repair Supervisor Name Role Phone Cait Redd MD Primary Care Provider [phone] Encounter Details Date Type Department Care Team Description 04/22/2024 Telephone Adult Medicine [address] [phone] Cait Redd MD [address] [place] [address] Social History Tobacco Use Types Packs/Day [...] on filedocumented in this encounter Care Teams Electric Motor Repair Supervisor Relationship Specialty Start Date End Date Cait Redd MD [address] [place] [address] PCP - General 01/11/09 documented as of this encounter
--- OUTSIDE RECORDS SUMMARY | 2024-09-25 12:40 | XMS_ITS | Encounter Summary ---
Author Organization [facility] Address [address] [place] [address] Care Team Providers Care Dental Office Manager Name Role Phone Cait Redd MD Primary Care Provider [phone] Encounter Details Date Type Department Care Team Description 09/04/2019 Community Service Worker Report Medical Records [address] [place] [address] Bernard Thomas PA-C Social History Tobacco Use Types Packs/Day [...] on filedocumented in this encounter Care Teams Dental Office Manager Relationship Specialty Start Date End Date Cait Redd MD [address] [place] [address] [phone] PCP - General 01/11/09 documented as of this encounter
--- OUTSIDE RECORDS SUMMARY | 2024-09-25 12:40 | XMS_ITS | Encounter Summary ---
Author Organization [facility] Address [address] [place] [address] Care Team Providers Care Concert Or Lecture Hall Manager Name Role Phone Cait Redd MD Primary Care Provider [phone] Encounter Details Date Type Department Care Team Description 11/18/2021 Pt. Non Urgent Medic al Question Adult Medicine [address] [address] Vidhi Villalta PA-C Social History Tobacco Use [...] on filedocumented in this encounter Care Teams Concert Or Lecture Hall Manager Relationship Specialty Start Date End Date Cait Redd MD [address] [place] [phone] PCP - General 01/11/09 documented as of this encounter
--- OUTSIDE RECORDS SUMMARY | 2024-09-25 12:40 | XMS_ITS | Encounter Summary ---
Author Organization [facility] Address [address] [place] [address] Care Team Providers Care Knocker Off Name Role Phone Cait Redd MD Primary Care Provider Reason for Referral * EXTERNAL (Priority) - Authorized/Booked Specialty Diagnoses / Procedures Referred By Anirudh boykin Referred To Contact ORTHOPEDICS / Orthopedic Procedures REFERRAL TO ORTHOPEDICS (OUT OF NETWORK) Margy Woodard MD [address] [place] [address] [facility] [address] [place] [address] Referral ID Status Reason Start Date Expiration Date V isits Requested Visits Authorized SEE NOTE Authorized/B ooked 12/01/2019 03/03/2020 1 1 Reason for Visit * Reason Onset Date Comments State'S Attorney Feedback 12/01/2019 orthopedics Encounter Details Date Type Department Care Team Description 12/01/2019 Telephone Adult Medicine - [place] [address] [place] [address] Margy Woodard MD [address] [place] [address] State'S Attorney Feedback (orthopedics) Social History Tobacco Use Types Packs/Day Years [...] encounter Miscellaneous Notes * Telephone Encounter - Margy Woodard MD - 12/01/2019 4:47 PM EDT Thankyou new order signed * Telephone Encounter - Jo Ann Holloway - 12/01/2019 4:[address] Woodard, You put in an in network order for this patient on 11/27/19 for tendonitis nonhealing metatarsal fracture needs evaluation abnormal MRI . I called and spoke to the patient and they would like to continue their care with [facility] not in network. I have pended a new order we can use to schedule them if you can review and sign when able. Thank you! Jo Ann Savage Referrals Department documented in this encounter Plan of Treatment Not on file documented as of this encounter Visit Diagnoses Not on filedocumented in this encounter Care Teams Knocker Off Relationship Specialty Start Date End Date Cait Redd MD [address] [place] [phone] PCP - General 01/11/09 documented as of this encounter
--- OUTSIDE RECORDS SUMMARY | 2024-09-25 12:40 | XMS_ITS | Encounter Summary ---
Author Organization [facility] Address [address] [place] [address] Care Team Providers Care Assembler Bicycle Name Role Phone Cait Redd MD Primary Care Provider [phone] Reason for Visit * Reason Onset Date Comments Faxed Order 12/14/2021 [facility] out[facility] ph ysical therapy Encounter Details Date Type Department Care Team Description 12/14/2021 Telephone Adult Medicine [address] [phone] Cait Redd MD [address] [place] [address] [phone] Faxed Order ([facility] physical therapy) Social History Tobacco Use Types Packs/Day Years [...] PM EDT documented as of this encounter Plan of Treatment Not on file documented as of this encounter Visit Diagnoses Not on filedocumented in this encounter Care Teams Assembler Bicycle Relationship Specialty Start Date End Date Cait Redd MD [address] [place] [phone] PCP - General 01/11/09 documented as of this encounter
--- OUTSIDE RECORDS SUMMARY | 2024-09-25 12:40 | XMS_ITS | Encounter Summary ---
Author Organization [facility] Address [address] [place] [address] Care Team Providers Care Gas Turbine Powerplant Mechanic Helper Name Role Phone Cait Redd MD Primary Care Provider [phone] Encounter Details Date Type Department Care Team Description 07/16/2023 Orders Only Medical Records [address] [place] [phone] Lolis Balderrama DO Social History Tobacco Use [...] on filedocumented in this encounter Care Teams Gas Turbine Powerplant Mechanic Helper Relationship Specialty Start Date End Date Cait Redd MD [address] [place] [address] PCP - General 01/11/09 documented as of this encounter
--- OUTSIDE RECORDS SUMMARY | 2024-09-25 12:40 | XMS_ITS | Encounter Summary ---
Author Organization [facility] Address [address] [place] [address] Care Team Providers Care Car Bracer Name Role Phone Cait Redd MD Primary Care Provider [phone] Reason for Visit * Reason Onset Date Comments LAB WORK 06/07/2016 Encounter Details Date Type Department Care Team Description 06/07/2016 Telephone Gastroenterology - [address] [address] Yuval Santiago MD LAB WORK Social History [...] on filedocumented in this encounter Care Teams Car Bracer Relationship Specialty Start Date End Date Cait Redd MD [address] [place] [address] PCP - General 01/11/09 documented as of this encounter
--- OUTSIDE RECORDS SUMMARY | 2024-09-25 12:40 | XMS_ITS | Encounter Summary ---
Author Organization [facility] Address [address] [place] [address] Care Team Providers Care Middle School Principal Name Role Phone Cait Redd MD Primary Care Provider [phone] Encounter Details Date Type Department Care Team Description 06/09/2015 Pt. Non Urgent Medical Question Adult Medicine [facility] [address] [place] [address] Cait Rded MD [address] [place] [address] [phone] Social History Tobacco Use Types Packs/Day Years [...] MD Sent: 06/09/2015 8:43 AM EST Subject: deaf and hard of hearing teacher referral I do not have a deaf and hard of hearing teacher. I thought samantha had a deaf and hard of hearing teacher that I could make an appointment with documented in this encounter Plan of Treatment Not on file documented as of this encounter Visit Diagnoses Not on filedocumented in this encounter Care Teams Middle School Principal Relationship Specialty Start Date End Date Cait Redd MD [address] [place] [phone] PCP - General 01/11/09 documented as of this encounter
--- OUTSIDE RECORDS SUMMARY | 2024-09-25 12:40 | XMS_ITS | Encounter Summary ---
Author Organization [facility] Address [address] [place] [address] Care Team Providers Care Popcorn Attendant Name Role Phone Cait Redd MD Primary Care Provider Reason for Visit * Reason Comments E-prescribe Rx Request Encounter Details Date Type Department Care Team Description 03/17/2024 Refill Adult Medicine [facility] [address] [place] [address] Cait Redd MD [address] [place] [address] [phone] E-prescribe Rx Request Social History Tobacco Use [...] N/A Patients current insurance carrier is: Payor: [facility] / Plan: [employer]mation $0 [facility] [id number] / Product Type: HMO [id number] documented in this encounter Plan of Treatment Not on file documented as of this encounter Visit Diagnoses Diagnosis Essential hypertension, benign Depression, unspecified depression type documented in this encounter Care Teams Popcorn Attendant Relationship Specialty Start Date End Date Cait Redd MD [address] [place] [address] [phone] PCP - General 01/11/09 documented as of this encounter
--- OUTSIDE RECORDS SUMMARY | 2024-09-25 12:40 | XMS_ITS | Encounter Summary ---
Author Organization [facility] Address [address] [place] [address] Care Team Providers Care Director Child Name Role Phone Cait Redd MD Primary Care Provider [phone] Encounter Details Date Type Department Care Team Description 03/28/2020 Transfer Records Medical Records [address] [place] [address] Abstract, Provider Social History Tobacco Use Types [...] on filedocumented in this encounter Care Teams Director Child Relationship Specialty Start Date End Date Cait Redd MD [address] [place] [address] [phone] PCP - General 01/11/09 documented as of this encounter
--- OUTSIDE RECORDS SUMMARY | 2024-09-25 12:40 | XMS_ITS | Encounter Summary ---
Author Organization [facility] Address [address] [place] [address] Care Team Providers Care Waterproof Coating Machine Tender Name Role Phone Cait Redd MD Primary Care Provider [phone] Encounter Details Date Type Department Care Team Description 06/27/2023 Rn Emergency Report Medical Records [address] [place] [phone] Lolis Balderrama DO Social History Tobacco Use [...] on filedocumented in this encounter Care Teams Waterproof Coating Machine Tender Relationship Specialty Start Date End Date Cait Redd MD [address] [place] [phone] PCP - General 01/11/09 documented as of this encounter
--- OUTSIDE RECORDS SUMMARY | 2024-09-25 12:40 | XMS_ITS | Encounter Summary ---
Author Organization [facility] Address [address] [place] [address] Care Team Providers Care Toll Gate Tender Name Role Phone Cait Redd MD Primary Care Provider [phone] Encounter Details Date Type Department Care Team Description 09/26/2018 Pt. Non Urgent Medical Question Adult Medicine [facility] [address] [place] [address] Salvatore Norman FNP [address] [place] [address] Social History Tobacco Use Types Packs/Day Years [...] Progress Notes * Debby Simpson M.A. - 09/26/2018 2:02 PM EDTFrom: Radha Carr To: MONISHA Steiner Sent: 09/26/2018 1:57 PM EDT Subject: test results Hi Elaine, When you have a chance can you explain what the chest x rays taken on 09/23/18 mean. what is segmental medial aspect and should anything be done about the gall bladder stones? Thank you, Radha documented in this encounter Plan of Treatment Not on file documented as of this encounter Visit Diagnoses Not on filedocumented in this encounter Care Teams Toll Gate Tender Relationship Specialty Start Date End Date Cait Redd MD [address] [place] [address] PCP - General 01/11/09 documented as of this encounter
--- OUTSIDE RECORDS SUMMARY | 2024-09-25 12:41 | XMS_ITS | Patient Health Record ---
Author Organization [facility] Address [address] [facility] [place] [address] Care Team Providers Care Hvac Instructor Name Role Phone Ivania HOLLEY, Cait Wilde Primary Care Provider Unav ailMilady Mishra Unavailable [phone] Allergies No Known Allergies Reason For Referral [...] Problem Status W/U Status Risk Notes Problem [id number] Atherosclerosi s of artery of both lower extremities (I70.203) Active confirmed Vital Signs Height 4ft 11in in 06/10/2024 Weight 165 lbs 06/10/2024 BMI 33.32 kg/m2 06/10/2024 Encounters Encounter Location Date Provider Diagnosis [address] [address] 10/30/2023 Milady Vance Xerosis of skin L85. 3 ; Atherosclerosis of artery of both lower extremities I70.203 ; Tinea unguium B35.1 ; Pain in left toe(s) M79.675 and Pain in right toe(s) M79.[address] [address] 01/08/2024 Milady Vance Atherosclerosis of artery of both lower extremities I70.203 ; Tinea unguium B35.1 ; Pain in left toe(s) M79.675 and Pain in right toe(s) M79.[address] [address] 03/27/2024 Milady Vance Atherosclerosis of artery of both lower extremities I70.203 ; Tinea unguium B35.1 ; Pain in left toe(s) M79.675 ; Pain in right toe(s) M79.674 ; Pain in left foot M79.672 ; Pain in left ankle and joints of left foot M25.572 ; Bursitis of intermetatarsal bursa of left foot M77.52 and Metatarsalgia, left foot M77.[address] [address] 06/10/2024 Milady Pericalex Pain in left foot M79.672 ; Metatarsalgia, left foot M77.42 ; Atherosclerosis of artery of both lower extremities I70.203 ; Tinea unguium B35.1 ; Pain in left toe(s) M79.675 ; Pain in right toe(s) M79.674 and Bursitis of intermetatarsal bursa of left foot M77.[address] [address] 08/25/2024 Milady Vance Assessments Encounter Date Diagnosis [...] Johnson Tatyana johnson, 10/23/2024 10:00:00 AM, [address] [place], [address], Insurance Providers Payer Name Payer Address Payer Phone Subscriber Number Group Number Insured Name Patient Relationship to Insured Coverage Start Date Coverage End Date [facility] [address] [place] [address] [id number] Radha Persaud Self - patient is the insured Medical (General) History Medical History History ICD Code Anxiety Back pain Cataracts Hepatitis C High blood pressure Poor circulation Measles Surgical History Surgery Date(Month/Year) cataract surgery 09/11/2015 cataract surgery 11/23/2015
--- OUTSIDE RECORDS SUMMARY | 2024-09-25 12:41 | XMS_ITS | Encounter Summary ---
Author Organization [facility] Address [address] [place] [address] Care Team Providers Care Mineral Industry Teacher Name Role Phone Cait Redd MD Primary Care Provider [phone] Reason for Visit * Reason Onset Date Comments Prior Authorization 04/01/2017 Encounter Details Date Type Department Care Team Description 04/01/2017 Telephone Radiology - [address] [id number] Cait Redd MD [address] [place] [address] Prior Authorization Social History Tobacco Use Types Packs/Day Years [...] encounter Miscellaneous Notes * Telephone Encounter - Louis Landers - 04/01/2017 11:06 AM EDT [employer] - No auth required * Telephone Encounter - Erin Puentes - 04/01/2017 11:00 AM EDT Requesting prior auth for bone density. Thank you Erin documented in this encounter Plan of Treatment Not on file documented as of this encounter Visit Diagnoses Not on filedocumented in this encounter Care Teams Mineral Industry Teacher Relationship Specialty Start Date End Date Cait Redd MD [address] [place] [address] PCP - General 01/11/09 documented as of this encounter
--- OUTSIDE RECORDS SUMMARY | 2024-09-25 12:41 | XMS_ITS | Encounter Summary ---
Author Organization [facility] [facility] Address [address] [place] [address] Care Team Providers Care Assistant Passenger Locomotive Engineer Name Role Phone Cait Redd MD Primary Care Provider [phone] Encounter Details Date Type Department Care Team Description 09/29/2014 Business Doc Medical Records [address] [place] [address] Abstract, Provider Social History Tobacco Use Types [...] on filedocumented in this encounter Care Teams Assistant Passenger Locomotive Engineer Relationship Specialty Start Date End Date Cait Redd MD [address] [place] [address] [phone] PCP - General 01/11/09 documented as of this encounter
--- OUTSIDE RECORDS SUMMARY | 2024-09-25 12:41 | XMS_ITS | Encounter Summary ---
Author Organization [facility] Address [address] [place] [address] Care Team Providers Care Molding Cutter Name Role Phone Cait Redd MD Primary Care Provider [phone] Encounter Details Date Type Department Care Team Description 10/16/2012 Ethnographic Materials Conservator Report Medical Records [address] [place] [address] Memo Urban Social History Tobacco Use Types [...] on filedocumented in this encounter Care Teams Molding Cutter Relationship Specialty Start Date End Date Cait Redd MD [address] [place] [address] PCP - General 01/11/09 documented as of this encounter
--- OUTSIDE RECORDS SUMMARY | 2024-09-25 12:41 | XMS_ITS | Encounter Summary ---
Author Organization [facility] Address [address] [place] [address] Care Team Providers Care Life Agent Name Role Phone Cait Redd MD Primary Care Provider [phone] Reason for Visit * Reason Onset Date Comments REFERRAL 10/12/2017 Encounter Details Date Type Department Care Team Description 10/12/2017 Telephone Gastroenterology - [address] [address] Yuval Santiago MD REFERRAL Social History Tobacco [...] on filedocumented in this encounter Care Teams Life Agent Relationship Specialty Start Date End Date Cait Redd MD [address] [place] [address] PCP - General 01/11/09 documented as of this encounter
--- OUTSIDE RECORDS SUMMARY | 2024-09-25 12:41 | XMS_ITS | Encounter Summary ---
Author Organization [facility] Address [address] [place] [address] Care Team Providers Care Aerodynamics Engineer Name Role Phone Cait Redd MD Primary Care Provider [phone] Encounter Details Date Type Department Care Team Description 12/11/2016 Pt. Non Urgent Medical Question Adult Medicine [facility] [address] [place] [address] [phone] Cait Redd MD [address] [place] [address] [phone] Social History Tobacco Use Types Packs/Day Years [...] on filedocumented in this encounter Care Teams Aerodynamics Engineer Relationship Specialty Start Date End Date Cait Redd MD [address] [place] [address] PCP - General 01/11/09 documented as of this encounter
--- OUTSIDE RECORDS SUMMARY | 2024-09-25 12:41 | XMS_ITS | Encounter Summary ---
Author Organization [facility] Address [address] [place] [address] Care Team Providers Care Hazmat Tanker Driver Name Role Phone Cait Redd MD Primary Care Provider [phone] Encounter Details Date Type Department Care Team Description 08/10/2021 Orders Only Radiology - [address] [phone] Cait Redd MD [address] [place] [address] [phone] Social History Tobacco Use Types Packs/Day Years [...] on filedocumented in this encounter Care Teams Hazmat Tanker Driver Relationship Specialty Start Date End Date Cait Redd MD [address] [place] [address] PCP - General 01/11/09 documented as of this encounter
--- OUTSIDE RECORDS SUMMARY | 2024-09-25 12:41 | XMS_ITS | Encounter Summary ---
Author Organization [facility] Address [address] [place] [address] Care Team Providers Care Intervention Specialist Name Role Phone Cait Redd MD Primary Care Provider [phone] Encounter Details Date Type Department Care Team Description 08/18/2021 Telephone Adult Medicine [address] [address] Vidhi Villalta PA-C Social History Tobacco Use [...] have Coronavirus / COVID-19? No / Unsure 08/16/2021 9:06 AM EST documented as of this encounter Miscellaneous Notes * Telephone Encounter - Vidhi Villalta PA-C - 08/18/2021 8:23 AM EST Patient called with results of bone density scan. 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 She will start taking calcium and vitamin D, recommend 1200 mg of calcium daily and 2000 units of vitamin D daily in the winter, 1000 units of vitamin D in the summer months. She is participating in weightbearing exercise. We discussed Fosamax as a treatment for osteoporosis. She is educated on weekly dosing as well as side effects including black box warning of avascular necrosis of the hip and osteonecrosis of the jaw as well as more common side effects including GERD, myalgias, and headaches. She is educated on the duration of the medication as well as drug holiday. Medication is sent to the pharmacy. Thank you Vidhi Villalta PA-C documented in this encounter Plan of Treatment Not on file documented as of this encounter Visit Diagnoses Diagnosis Age-related osteoporosis without current pathological fracture Senile osteoporosis documented in this encounter Care Teams Intervention Specialist Relationship Specialty Start Date End Date Cait Redd MD [address] [place] [address] PCP - General 01/11/09 documented as of this encounter
--- OUTSIDE RECORDS SUMMARY | 2024-09-25 12:41 | XMS_ITS ---
Author Organization [facility] Address [address] [place] [address] Care Team Providers Care Pancake Professional Name Role Phone Ivania HOLLEY, Cait Wilde Primary Care Provider UnaMilady Moreno Unavailable [phone] Medications Medication SIG (Take, Route, Frequency, Duration) [...] Active Encounters Encounter Location Date Provider Diagnosis [facility] [address] [place] [address] 08/26/2024 Milady Vance Plan Of Treatment Next Appt Details Provider Name:Milady johnson, 10/23/2024 10:00:00 AM, [address] [place], [address], Progress Notes * Radha CARR ADOB: [birth year] (74 yo F)Acc No.[id number]:08/26/2024 Progress Note Patient:?Radha CARR Provider:?Milady Vance DPM :1950???Age:73 Y???Sex:Female D ate:08/26/2024 Address:[address] [facility], [address] [place] [address] raghav, Hector [id number] Pcp:Cait Redd MD Subjective: * Chief Complaints: [...] Vance DPM Date:? Generated for Alesha mijares/Connor/Rosa on:?09/25/2024 12:40 PM EDT
--- OUTSIDE RECORDS SUMMARY | 2024-09-25 12:41 | XMS_ITS ---
Author Organization [facility] Address [address] [facility] [place] [address] Care Team Providers Care Business Services Officer Name Role Phone Ivania HOLLEY, Dennismt Andry Primary Care Provider Unav Milady Infante Unavailable [phone] Allergies No Known Allergies REASON FOR VISIT [...] 06/10/2024 Encounters Encounter Location Date [facility] [address] [place] [address] 06/10/2024 Milady Vance Pain in left foot [...] Reason: Provider Name:Milady johnson, 10/23/2024 10:00:00 AM, [address] [place] [address], [address], Procedure Notes * Category Sub-Category Detail Notes [...] use of a nail nipper and/or dremel-type hand grinder, to a more viable healthy nail [...] to maintain effectiveness in symptomatic relief - 90100 Keratoma Treatment Parring or Cutting o f Benign Hyperkeratotic Lesion(s) (-57) More than 4 Lesions - The Benign hyperkeratotic lesions, ( 6 ) in total, locations as stated and described in exam, were pared, and/or cut utilizing a sterile 15 blade, tissue nippers, and/or power .[employer] instrumentation - 20780 Progress Notes * Radha CARR ADOB: [birth year] (73 yo F)Acc No.[id number]:06/10/2024 Progress Note Patient:?Radha CARR Provider:?Milady Vance DPM :1950???Age:73 Y???Sex:Female D ate:06/10/2024 Address:[address] [place] [address], [address] [place], [place] [phone] Pcp:Cait Redd MD Subjective: * Chief Complaints: [...] walking. ?Marital status: . 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 * Medications:?TakingVitamin C 500 MG Capsule as [...] use of a nail nipper and/or dremel-type hand grinder, to a more viable healthy nail [...] to maintain effectiveness in symptomatic relief - 19214.?Keratoma Treatment:?Parring or Cutting of Benign Hyperkeratotic Lesion(s)?(-57) More than 4 Lesions - The Benign hyperkeratotic lesions, ( 6 ) in total, locations as stated and described in exam, were pared, and/or cut utilizing a sterile 15 blade, tissue nippers, and/or power dremel instrumentation - 53135.? * Procedure Codes:?86759 DEBRI DE NAIL, 6 OR MORE, Modifiers: XS 74286 TRIM SKIN LESIONS, OVER 4, Modifiers: XS [...] Vance DPM Date:?10/2023 Generated for Alesha mijares/Connor/Rosa on:?09/25/2024 12:41 PM EDT History and Physical Notes * [...]
--- OUTSIDE RECORDS SUMMARY | 2024-09-25 12:41 | XMS_ITS | Encounter Summary ---
Author Organization [facility] Address [address] [place] [address] Care Team Providers Care Dosimetrist Name Role Phone Cait Redd MD Primary Care Provider [phone] Encounter Details Date Type Department Care Team Description 12/31/2016 Adoption Agent Report Medical Records [address] [place] [id number] Ramez Christianson MD Social History Tobacco Use Types Packs/Day [...] on filedocumented in this encounter Care Teams Dosimetrist Relationship Specialty Start Date End Date Cait Redd MD [address] [place] [address] [phone] PCP - General 01/11/09 documented as of this encounter
--- OUTSIDE RECORDS SUMMARY | 2024-09-25 12:41 | XMS_ITS | Encounter Summary ---
Author Organization [facility] Address [address] [place] [address] Care Team Providers Care Manager Privacy Name Role Phone Cait Redd MD Primary Care Provider [phone] Encounter Details Date Type Department Care Team Description 05/24/2017 Felled Seam Operator Report Medical Records [address] [place] [address] Mindy Cobb PA-C Social History Tobacco Use Types Packs/Day [...] on filedocumented in this encounter Care Teams Manager Privacy Relationship Specialty Start Date End Date Cait Redd MD [address] [place] [address] [phone] PCP - General 01/11/09 documented as of this encounter
--- OUTSIDE RECORDS SUMMARY | 2024-09-25 12:41 | XMS_ITS ---
Author Organization [facility] Address [address] [place] [address] Care Team Providers Care Retail Account Representative Name Role Phone Ivania HOLLEY, Cait Wilde Primary Care Provider Unav ailable Milady Vance [phone] REASON FOR VISIT r/s 08/26 Encounters Encounter Location Date Provider Diagnosis [address] [address] 08/25/2024 Milady Vance Plan Of Treatment Next Appt Details Provider Name:Milady johnson, 10/23/2024 10:00:00 AM, [address] [place], [address], Progress Notes * Radha CARR ADOB: [birth year] (73 yo F)Acc No.[id number]:08/25/2024 Patient:?Radha CARR :1950???Age:73 Y???Sex:Female Address:[address] [facility] [address] [facility] r, [place] [address] * true * Date:? Generated for Printi dyllan/Connor/eTransmitting on:?09/25/2024 12:41 PM EDT
--- OUTSIDE RECORDS SUMMARY | 2024-09-25 12:41 | XMS_ITS | Encounter Summary ---
Author Organization [facility] Address [address] [place] [address] Care Team Providers Care Audio Video Technician Name Role Phone Cait Redd MD Primary Care Provider Encounter Details Date Type Department Care Team Description 03/24/2021 Telephone Dermatology [address] [place] [address] Blanco Camarillo PA-C Social History Tobacco Use [...] Elena Arizmendi - 03/24/2021 10:51 AM EDT [facility] called has questions about the quantity of Menthol-Zinc Oxide (Calmoseptine) 0.44-20.6 % Ointment, please advise they can be reached at [phone] reference number [id number] documented in this encounter Plan of Treatment Not on file documented as of this encounter Visit Diagnoses Not on filedocumented in this encounter Care Teams Audio Video Technician Relationship Specialty Start Date End Date Cait Redd MD [address] [place] [address] PCP - General 01/11/09 documented as of this encounter
--- OUTSIDE RECORDS SUMMARY | 2024-09-25 12:41 | XMS_ITS | Encounter Summary ---
Author Organization [facility] Address [address] [place] [address] Care Team Providers Care Mailroom Courier Name Role Phone Cait Redd MD Primary Care Provider [phone] Encounter Details Date Type Department Care Team Description 03/28/2015 Pt. Non Urgent Medical Question Adult Medicine [facility] [address] [place] [address] [phone] Cait Redd MD [address] [place] [address] [phone] Social History Tobacco Use Types Packs/Day Years [...] insurance. I have new medical insurance through [employer], [employer] ([employer]) can I make an appointment with your urology dept? I am taking Oxbutynin ER 10 mgs for my bladder control problems documented in this encounter Plan of Treatment Not on file documented as of this encounter Visit Diagnoses Not on filedocumented in this encounter Care Teams Mailroom Courier Relationship Specialty Start Date End Date Cait Redd MD [address] [place] [address] PCP - General 01/11/09 documented as of this encounter
--- OUTSIDE RECORDS SUMMARY | 2024-09-25 12:41 | XMS_ITS | Encounter Summary ---
Author Organization [facility] Address [address] [place] [address] Care Team Providers Care Trainer Name Role Phone Cait Redd MD Primary Care Provider [phone] Encounter Details Date Type Department Care Team Description 12/25/2013 Hospital Medical Records [address] [place] [address] Te [place] Social History Tobacco Use Types [...] on filedocumented in this encounter Care Teams Trainer Relationship Specialty Start Date End Date Cait Redd MD [address] [place] [address] [phone] PCP - General 01/11/09 documented as of this encounter
--- OUTSIDE RECORDS SUMMARY | 2024-09-25 12:41 | XMS_ITS | Encounter Summary ---
Author Organization [facility] Address [address] [place] [address] Care Team Providers Care Coremaker Machine Name Role Phone Cait Redd MD Primary Care Provider Encounter Details Date Type Department Care Team Description 03/13/2018 Dry Cell Assembly Machine Tender Report Medical Records [address] [place] [address] Liza Hammonds MD Social History Tobacco Use Types Packs/Day [...] on filedocumented in this encounter Care Teams Coremaker Machine Relationship Specialty Start Date End Date Cait Redd MD [address] [place] [address] PCP - General 01/11/09 documented as of this encounter
--- OUTSIDE RECORDS SUMMARY | 2024-09-25 12:41 | XMS_ITS | Encounter Summary ---
Author Organization [facility] Address [address] [place] [address] Care Team Providers Care Line Up Examiner Name Role Phone Cait Redd MD Primary Care Provider [phone] Encounter Details Date Type Department Care Team Description 11/22/2014 Business Doc Medical Records [address] [place] [address] Abstract, Provider Social History Tobacco Use Types [...] on filedocumented in this encounter Care Teams Line Up Examiner Relationship Specialty Start Date End Date Cait Redd MD [address] [place] [address] [phone] PCP - General 01/11/09 documented as of this encounter
== END 2024-09-25 11:46 | disposition home or self-care (01) ==
PROVIDERS: PCP Internal Medicine; Visit Provider Physician Assistant Medical
DX: L03.116 Cellulitis of left lower limb (principal)

== ENCOUNTER → 2024-09-25 10:35 | Outpatient (BNVA) | payer MEDICARE, SELFPAY | PROVIDERS: PCP Internal Medicine; Visit Provider Physician Assistant Medical | DX: L03.116 Cellulitis of left lower limb (principal) | CPT/HCPCS: 99212 ==

== ENCOUNTER 2024-10-02 10:00 | Outpatient (RCR) | payer MEDICARE, SELFPAY ==
--- NOTE | 2024-08-31 10:38 | MHC.PT.EP ---
[employer] [place] [facility] [place] [facility] [place] [facility] [address] [place] [address] [phone] F: [phone] F: [phone] F: [phone] F: [phone] Physical Therapy Plan of Care Date of Evaluation: 08/31/24 Date of Surgery: n/a Diagnosis: low back pain Assessment: Patient is a 73 year old female presenting to PT with complaints of pain in her low back. Pt reports onset of pain began about 3 months ago due to insidious onset. She presents today with impairments in pain, lumbar ROM, hip strength. 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 Pt expresses fpc goal of reducing pain, and is motivated to work towards this in PT. Clinical presentation today is most consistent with signs and sx associated with low back pain and pt will benefit from skilled PT 2week x 4 weeks to address the following problems and impairments noted upon evaluation: pain, lumbar ROM, hip strength. These problems limit the patient with the following functional activities: ADLs, work, lifting. The prescribed treatment plan of care is medically necessary. Co-morbidities of hx hep c, cochlear implant in place, osteoporosis, scoliosis, depression, hx DVT RLE were identified and taken into considerations of plan of care. Pt was educated on HEP, role of PT, prognosis, POC. Frequency and Duration: The patient will be seen 2 x week x 4 weeks Short Term Goals: Pt will demonstrate ability to move through available lumbar ROM in 2 weeks with min to no pain. Pt will demonstrate improved hip MMT strength by 1/3 grade in 2 weeks. Snf Goals: Pt will demonstrate ability to lift at work with min to no pain in 4 weeks for improved tolerance to work. Pt will demonstrate ability to complete all ADLs with min to no pain in 4 weeks for return to PLOF. Treatment Plan: Modalities to reduce pain, spasms and effusion. Manual therapy to restore motion and function. Therapeutic exercise to improve strength and flexibility. Neuromuscular re-education for posture and balance. Therapeutic activities to return to functional activities of daily living. Electronically signed by: Evi Fischer, PT, DPT, ATC Please sign and return to therapist. Thank you for your referral.
--- NOTE | 2024-11-09 07:55 | MHC.PT.DC ---
[facility] [place] [facility] [place] [facility] [place] [facility] [address] [place] [address] [phone] F: [phone] F: [phone] F: [phone] F: [phone] Physical Therapy Discharge Report Diagnosis: low back pain Date of Surgery: n/a Date of Evaluation: 08/31/24 Date of Discharge: 11/09/24 Treatments to Date: 4 Cancellations to Date: 1 No Shows to Date: 0 Discharge Status: Improved Function Independent with HEP Discharge Summary: Pt had been placed on 30 day hold as she was feeling better at last visit. She has not called to be scheduled so therefore will be d/c per plan at last visit. Electronically signed by: Evi Fischer, PT, DPT, ATC Please sign and return to therapist. Thank you for your referral.
== END 2024-11-09 07:55 | disposition home or self-care (01) ==
LOC: HO.PTCHIC 10:00
PROVIDERS: PCP Internal Medicine; Visit Provider Internal Medicine
DX: M54.50 Low back pain, unspecified (principal)
CPT/HCPCS: 97110; 97161

== ENCOUNTER 2024-11-27 10:20 | Outpatient (AMB) | payer MEDICARE, SELFPAY ==
--- NOTE | 2024-11-27 10:28 | AM.OFFWIN_ITS ---
Intake Vital Signs 11/27/24 10:37 Weight 161 lb BP 116/72 Blood Pressure Location Rt brachial Position Sitting Pulse 60 Pulse Source Pulse Oximeter Pulse Oximetry (%) 97 Oxygen Delivery Method Room Air Intake Visit Reasons: EP trouble hearing in RT ear Intake Note: Patient here for right ear discomfort. Patient Tobacco Use Status: Former Tobacco user Allergies No Known Allergies Allergy (Verified 11/27/24 10:39) Do you need a note to return to daycare/school/sports/work: No HPI HPI Comments History of Present Illness Details 74 y/o Female patient who presents to [facility] walk in clinic for Ear Wax removal. [facility] Medical History (Updated 11/27/24 @ 13:07 by Coco Petit NP) Cerumen impaction OAB (overactive bladder) Urinary incontinence History of hepatitis C History of gallstones Osteoporosis Cochlear implant in place Peripheral neuropathy Obesity Depression Osteoarthritis Closed fracture of base of metatarsal bone with delayed healing Scoliosis Lower back pain History of deep venous thrombosis (DVT) of distal vein of right lower extremity Family History (Updated 08/24/24 @ 02:19 by Elsi Solano MD) Brother Substance use disorder Daughter Mental health disorder Maternal Grandmother Diabetes mellitus Maternal Aunt Diabetes mellitus Mother Diabetes mellitus Father Bladder cancer Social History Housing: Apartment Patient Tobacco Use Status: Former Tobacco user e-Cigarette/Vaping Use: Never Used service: No Current occupational status: retired Current occupation: work part-time Cognitive needs: No Hearing needs: No Vision needs: Yes Review of Systems Const All systems reviewed & are unremarkable except as noted in HPI and below Physical Exam Vital Signs: Last Vital Signs Pulse 60 11/27/24 10:37 BP 116/72 11/27/24 10:37 Pulse Ox 97 11/27/24 10:37 Oxygen Delivery Method Room Air 11/27/24 10:37 Const General: comfortable and no acute distress Nutritional Appearance: well nourished Orientation/consciousness: patient oriented x3 HEENT Ears: external ears normal and TM abnormal obstructed by cerumen on the right Neuro General: patient oriented x3 Office Procedures Cerumen Removal From which ear canal was the cerumen removed: bilateral Removal: irrigation Notes: patient tolerated procedure well [id number] Irrigation/Lavage Assessment & Plan Assessment & Plan (1) Cerumen impaction: Code(s): H61.20 - Impacted cerumen, unspecified ear Qualifiers: Laterality: right Qualified Code(s): H61.21 - Impacted cerumen, right ear Plan: Ordered Cerumen Lavage both Ears. Pt tolerated procedure well. TM clear, clean and intact. Coding Level of Care Code Est Pt Level 4 (09147) Diagnoses Impacted cerumen of right ear H61.21 Laterality: right CPT Codes Office Procedure - CPT: 44565-Oqc Irrigation/Lavage ([id number]) Time Spent (min) 20
--- OUTSIDE RECORDS SUMMARY | 2024-11-27 10:31 | XMS_ITS | Encounter Summary ---
Author Organization [facility] Address [address] [place] [address] Care Team Providers Care Traffic Representative Name Role Phone Cait Redd MD Primary Care Provider [phone] Encounter Details Date Type Department Care Team Description 03/28/2020 Transfer Records Medical Records [address] [place] [id number] Abstract, Provider Social History Tobacco Use Types [...] on filedocumented in this encounter Care Teams Traffic Representative Relationship Specialty Start Date End Date Cait Redd MD [address] [place] [phone] PCP - General 01/11/09 documented as of this encounter
[2024-11-27 10:37] VITALS: BP 116/72; PULSE 60; O2SAT 97
== END 2024-11-27 11:14 | disposition home or self-care (01) ==
PROVIDERS: PCP Internal Medicine; Visit Provider Nurse Practitioner Family
DX: H61.21 Impacted cerumen, right ear (principal)

== ENCOUNTER → 2024-11-27 10:20 | Outpatient (BNVA) | payer MEDICARE, SELFPAY | PROVIDERS: PCP Internal Medicine; Visit Provider Nurse Practitioner Family | DX: H61.21 Impacted cerumen, right ear (principal) | CPT/HCPCS: 69209; 99212 ==

== ENCOUNTER 2025-02-15 11:22 | Outpatient (REF) | payer MEDICARE, SELFPAY ==
--- NOTE | ~2025-02-15 | XR_ITS ---
EXAMINATION: XR THORACIC SPINE CLINICAL INFORMATION: Z91.81 - History of falling COMPARISON: None available. TECHNIQUE: AP and lateral views FINDINGS: There is a superior S-shaped curvature of the axial skeleton with a dextroconvex curvature in the lower cervical, levoconvex in the cervical thoracic junction, dextroconvex morphology at the mid to lower thoracic thoracolumbar spine and levoconvex at the mid lumbar spine. Osteopenia versus osteoporosis. Inadequate evaluation. XR/XR thoracic spine 2V IMPRESSION: Severe scoliosis and multilevel spondylosis. Electronically signed by: Soy Schmitz MD 02/15/2025 02:31 PM EDT
--- NOTE | ~2025-02-15 | XR_ITS ---
EXAMINATION: XR CERVICAL SPINE CLINICAL INFORMATION: Z91.81 - History of falling COMPARISON: None available. TECHNIQUE: AP and lateral views FINDINGS: Craniocervical junction is intact. No acute cortical disruption or gross malalignment from the current cervical junction to C6. There is no scoliosis at the cervical thoracic junction. Multilevel marginal osteophyte formation and decreased intervertebral disc height and endplate irregularity C5-6 and C6-7 levels. XR/XR cervical spine 2V IMPRESSION: Multilevel spondylosis and scoliosis without acute fracture. Electronically signed by: Soy Schmitz MD 02/15/2025 02:32 PM EDT
== END 2025-02-15 11:23 | disposition home or self-care (01) ==
LOC: HO.HMGCX 11:22
PROVIDERS: PCP Internal Medicine; Visit Provider Internal Medicine
DX: M54.6 Pain in thoracic spine (principal); M54.2 Cervicalgia; Z91.81 History of falling
CPT/HCPCS: 72040; 72070; 99212

== ENCOUNTER 2025-02-15 11:22 | Outpatient (AMB) | payer OTHER, SELFPAY ==
--- OUTSIDE RECORDS SUMMARY | 2024-11-10 12:00 | XMS_ITS ---
Author Organization [facility] Address [address] [place] [id number] Care Team Providers Care Sap Technical Architect Name Role Phone Xiomara HOLLEY, Elsi Delgado Primary Care Provider Un available Milady Vance Unavailable [phone] REASON FOR VISIT Seen Sooner Encounters Encounter Location Date Provider Diagnosis [address] [address] 11/10/2024 Milady Vance Plan Of Treatment Next Appt Details Provider Name:Milady johnson, 04/02/2025 10:00:00 AM, [address] [place] [address], [phone], Progress Notes * Radha CARR ADOB: [birth year] (74 yo F)Acc No.[id number]:11/10/2024 Progress Note Patient: Margot GHOSH Radha Ponce Provider: Hilaria Vance DPM :1950 A ge:74 Y S ex:Female Date:11/10/2024 Address:[address] [place] [address], [address] [place] [address], [id number] Pcp:Tye Oviedo Subjective: * Chief Complaints: * [...] 11/10/2024 Generated for Alesha mijares/Connor/Rosa on: 0 02/15/2025 12:01 PM EDT
--- NOTE | 2025-02-15 11:42 | MHC.PC.OV ---
Vital Signs 02/15/25 11:49 Height 4 ft 11 in Weight 156 lb BMI 31.5 BP 132/90 H Blood Pressure Location Lt brachial Position Sitting Respiration 18 Pulse 81 Pulse Source Pulse Oximeter Temp 97.9 F Temp Source Oral Pulse Oximetry (%) 93 Oxygen Delivery Method Room Air Intake Visit Reasons: back and shoulder pain s/p fall 12/31/24 @ work Intake Note: Pt is here today c/o upper back and bilateral shoulder pain due to a fall on 12/31/24 at work Allergies No Known Allergies Allergy (Verified 02/17/25 14:18) Medication List - Last Reconciled 02/15/25 by Elsi Solano MD alpha lipoic acid 300 mg PO DAILY aspirin (Adult Low Dose Aspirin) 81 mg PO DAILY calcium carbonate 600 mg PO BID celecoxib 200 mg PO DAILY PRN cholecalciferol (vitamin D3) 50 mcg PO DAILY fluoxetine 10 mg PO DAILY hydrochlorothiazide 25 mg PO DAILY metoprolol succinate ER 25 mg PO DAILY oxybutynin chloride ER 15 mg PO DAILY Tobacco use date assessed: 02/15/25 Fall risk assessment: 1 Fall in past year Last assessed Fall Risk: 02/15/25 Dental Screening Dental Screen Date: 02/15/25 Did you have a dental visit in the last 12 months?: Yes Did you have a dental problem in the last 6 months where you did not have access to dental care?: No Was dental information given to patient?: Patient has dentist HPI HPI Comments History of Present Illness Details - The patient is a 74-year-old female presenting with posterior neck and thoracic back pain following a fall at work. 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 - Initially, the pain was not severe, and she continued working, but over time, the pain worsened, becoming significant after a month. - The pain is primarily located in the upper and middle back, with occasional radiation to the shoulders, and is exacerbated by coughing. - She has been managing the pain with Tylenol 500 mg once daily, which provides minimal relief. [facility] Medical History Cerumen impaction OAB (overactive bladder) Urinary incontinence History of hepatitis C History of gallstones Osteoporosis Cochlear implant in place Peripheral neuropathy Obesity Depression Osteoarthritis Closed fracture of base of metatarsal bone with delayed healing Scoliosis Lower back pain History of deep venous thrombosis (DVT) of distal vein of right lower extremity Family History Brother Substance use disorder Daughter Mental health disorder Maternal Grandmother Diabetes mellitus Maternal Aunt Diabetes mellitus Mother Diabetes mellitus Father Bladder cancer Social History Housing: Apartment Patient Tobacco Use Status: Former Tobacco user e-Cigarette/Vaping Use: Never Used service: No Current occupational status: retired Current occupation: work part-time Cognitive needs: No Hearing needs: No Vision needs: Yes Questionnaire Thrive Questionnaire Date Thrive assessed: 08/17/24 I am a: Patient What is your living situation today?: I have a steady place to live Within the past 12 months, did the food you bought not last and you didn't have the money to get more?: I choose not to answer this question Within the past 12 months, did you worry whether your food would run out before you got money to buy more?: I choose not to answer this question Do you have trouble paying for medicines?: No Do you have trouble getting transportation to medical appointments?: No Do you have trouble paying your heating and electricity bill?: No Do you have trouble taking care of your child, family member or friend?: No Do you have trouble with day-to-day activities such as bathing, preparing meals, shopping, managing finances, etc.?: No Are you currently unemployed and looking for a job?: No Are you interested in more education?: No Please select the resources that you would like help with: None Currently or been in a relationship where the following occur: No concerns reported THRIVE Score: 0 MUKESH-7 AMB Questionnaire MUKESH-7 Date MUKESH - 7 assessed: 08/17/24 Source: Developed by Drs. Brad Medrano, Shweta Harrington, Eddie Del Rosario and colleagues, with an educational valentina from [employer]. Review of Systems Const Reports as per HPI Eyes Denies change in vision ENT Reports no additional complaints Card Reports no additional complaints Resp Reports as per HPI, Denies cough and Denies pain on inspiration GI Reports no additional complaints Reports no additional complaints Musc Reports as per HPI Skin/Breast Denies lesions and Denies wounds Neuro Reports no additional complaints Ehsan/Lymph Reports no additional complaints Physical exam (Primary Care) Vital Signs: Last Vital Signs Temp 97.9 F 02/15/25 11:49 Pulse 81 02/15/25 11:49 Resp 18 02/15/25 11:49 BP 132/90 H 02/15/25 11:49 Pulse Ox 93 02/15/25 11:49 Oxygen Delivery Method Room Air 02/15/25 11:49 BMI result Body Mass Index 31.5 Tobacco/Smoking Status: Tobacco use Status Tobacco use date assessed 02/15/25 02/15/25 11:44 Patient Tobacco Use Status Former Tobacco user 02/15/25 11:44 e-Cigarette/Vaping Use Never Used 02/15/25 11:44 Thrive Assessment: Date of Thrive Assessment Date Thrive assessed 08/17/24 02/15/25 11:44 Currently or been in a relationship where the following occur: No concerns reported Const General: no acute distress and alert Orientation/consciousness: patient oriented x3 HENMT Ears: external ears normal General nose exam: Normal external nose present Mouth: moist mucous membranes Eyes General: appearance normal, both eyes and all related structures Neck Neck: Yes full ROM, Yes no lymphadenopathy and Yes supple Resp Effort & Inspection: normal respiratory effort and able to speak in complete sentences Auscultation: clear to auscultation bilaterally Cardio Rate: regular rate Rhythm: regular rhythm Heart sounds: S1 normal heart sound present and S2 normal heart sound present GI Palpation (GI): Soft to palpation, nontender and no masses Auscultation: normal bowel sounds Back/Spine/Pelvis Other: Slight tenderness on palpation over paraspinal muscle in posterior cervical spine. Marked curvature in thoracolumbar spine noted, with patient till to more towards the right. No tenderness on palpation over lower back, straight leg raising sign negative bilaterally Skin General skin exam: no rashes or lesions noted Neuro General: patient oriented x3, tone normal, moves all extremities and no focal motor deficits Cranial nerves: Yes CN's II-XII intact bilaterally Cognition (Neuro): normal cognition Extrem General: Yes full ROM, Yes no joint enlargement, Yes no clubbing, cyanosis or edema and Yes no calf tenderness Psych Appearance: grossly normal and well kempt Mental Status: mental status grossly normal Speech and movement: Normal speech and movement present Affect: normal affect Attitude: cooperative Coding Level of Care Code Est Pt Level 4 (17595) Diagnoses Acute upper back pain M54.9 Acute bilateral thoracic back pain M54.6 Back pain laterality: bilateral History of fall within past 90 days Z91.81 Assessment & Plan Assessment & Plan (1) Acute upper back pain: Code(s): M54.9 - Dorsalgia, unspecified Category: Medical (2) Acute thoracic back pain: Code(s): M54.6 - Pain in thoracic spine Category: Medical Qualifiers: Back pain laterality: bilateral Qualified Code(s): M54.6 - Pain in thoracic spine (3) History of fall within past 90 days: Code(s): Z91.81 - History of falling Category: Medical Plan Ordered an x-ray of the cervical thoracic spine A bone density scan is also ordered to evaluate the current status of osteoporosis, given the patient's history and the discontinuation of alendronate. The patient is advised to resume celecoxib for pain management, in conjunction with Tylenol, and referred for physical therapy . The patient is instructed to stop taking baby aspirin due to potential gastrointestinal side effects and lack of current indication. Patient was informed and verbally consented to the use of an ambient scribe for clinic note documentation during this visit. Orders: Orders PT Evaluation and Treatment 02/15/25 M54.6 - Pain in thoracic spine, M54.9 - Dorsalgia, unspecified, Z91.81 - History of falling XR thoracic spine 2V 02/15/25 M54.6 - Pain in thoracic spine, M54.9 - Dorsalgia, unspecified, Z91.81 - History of falling
[2025-02-15 11:49] VITALS: BP 132/90; PULSE 81; RESP 18; TEMP 36.6; O2SAT 93; BMI 31.5
== END 2025-02-15 12:32 | disposition home or self-care (01) ==
LOC: HO.HMCC 11:22
PROVIDERS: PCP Internal Medicine; Visit Provider Internal Medicine
DX: M54.9 Dorsalgia, unspecified (principal); M54.6 Pain in thoracic spine; Z91.81 History of falling

== ENCOUNTER → 2025-02-15 13:06 | Outpatient (BNV) | payer MEDICARE, SELFPAY | PROVIDERS: PCP Internal Medicine; Visit Provider Radiology Diagnostic Radiology | DX: M47.812 Spondylosis without myelopathy or radiculopathy, cervical region (principal); M41.82 Other forms of scoliosis, cervical region; M47.814 Spondylosis without myelopathy or radiculopathy, thoracic region; M41.84 Other forms of scoliosis, thoracic region; Z91.81 History of falling | CPT/HCPCS: 72040; 72070 ==

== ENCOUNTER 2025-02-17 13:49 | Outpatient (AMB) | payer OTHER, SELFPAY ==
--- OUTSIDE RECORDS SUMMARY | 2024-11-10 12:00 | XMS_ITS ---
Author Organization [facility] Address [address] [place] [phone] Care Team Providers Care Certified Medical Dosimetrist Name Role Phone Xiomara HOLLEY, Elsi Delgado Primary Care Provider Un available Milady Vance Unavailable [phone] REASON FOR VISIT Seen Sooner Encounters Encounter Location Date Provider Diagnosis [address] [address] 11/10/2024 Milady Vance Plan Of Treatment Next Appt Details Provider Name:Milady johnson, 04/02/2025 10:00:00 AM, [address] [place] [address], [phone], Progress Notes * Radha CARR ADOB: [birth year] (74 yo F)Acc No.[id number]:11/10/2024 Progress Note Patient: Margot GHOSH Radha Ponce Provider: Hilaria Vance DPM :1950 A ge:74 Y S ex:Female Date:11/10/2024 Address:[address] [place] [address], [address] [place] [address], [place], [place] Pcp:Tye Oviedo Subjective: * Chief Complaints: * 1 . Seen Sooner. * Medical History: Objective: * Vitals: Assessment: Plan: * Treatment: * Images: * The named appointment provid er may or may not be the originator of this progress note, and it is not deemed complete until electronically signed by the appointment provider. Sign off status: Pending * Provider: Hilaria Vance, DPTye Date: 0 11/10/2024 Generated for Alesha mijares/Connor/Rosa on: 0 02/17/2025 02:11 PM EDT
[2025-02-17 13:53] VITALS: BP 132/70; PULSE 93; RESP 16; TEMP 36.6; O2SAT 94; BMI 31.3
--- NOTE | 2025-02-17 13:53 | A.OFFPC_ITS ---
Vital Signs 02/17/25 13:53 Height 4 ft 11 in Weight 155 lb BMI 31.3 BP 132/70 Blood Pressure Location Lt brachial Position Sitting Respiration 16 Pulse 93 Pulse Source Pulse Oximeter Temp 97.8 F Temp Source Oral Pulse Oximetry (%) 94 Oxygen Delivery Method Room Air Intake Visit Reasons: Follow-up workman's comp, upper back pain, ffup Intake Note: Pt is here today c/o SOB Allergies No Known Allergies Allergy (Verified 02/17/25 14:18) Medication List - Last Reconciled 02/17/25 by Elsi Solano MD alpha lipoic acid 300 mg PO DAILY calcium carbonate 600 mg PO BID celecoxib 200 mg PO DAILY PRN cholecalciferol (vitamin D3) 50 mcg PO DAILY fluoxetine 10 mg PO DAILY hydrochlorothiazide 25 mg PO DAILY metoprolol succinate ER 25 mg PO DAILY oxybutynin chloride ER 15 mg PO DAILY Tobacco use date assessed: 02/17/25 Fall risk assessment: 1 Fall in past year Last assessed Fall Risk: 02/17/25 Dental Screening Dental Screen Date: 02/15/25 HPI ffup HPI Details - The patient is a 74-year-old female pr esenting today for follow-up. - The patient has a history of arthriti s and scoliosis, confirmed by recent x- ray findings. The x-ray of cervical and thoracic spine showed severe scoliosis and significant arthritis, with no fractures noted. She is currently managing the pain with Tylenol 500 mg once a day taken together with Celecoxib, and uses a heating pad , which has been helping alleviate the pain. She is trying to schedule her physical therapy the but needs new workman's comp information before she can get seen.. [facility] Medical History Spondylosis of thoracic spine Spondylosis of cervical spine Scoliosis (and kyphoscoliosis), idiopathic OAB (overactive bladder) Urinary incontinence History of hepatitis C History of gallstones Osteoporosis Cochlear implant in place Peripheral neuropathy Obesity Depression Osteoarthritis Closed fracture of base of metatarsal bone with delayed healing History of deep venous thrombosis (DVT) of distal vein of right lower extremity Family History Brother Substance use disorder Daughter Mental health disorder Maternal Grandmother Diabetes mellitus Maternal Aunt Diabetes mellitus Mother Diabetes mellitus Father Bladder cancer Social History (Updated 02/17/25 @ 15:11 by Elsi Solano MD) Housing: Apartment Patient Tobacco Use Status: Former Tobacco user e-Cigarette/Vaping Use: Never Used service: No Current occupational status: retired Current occupation: work part-time at [employer] Cognitive needs: No Hearing needs: No Vision needs: Yes Questionnaire Thrive Questionnaire Date Thrive assessed: 08/17/24 I am a: Patient What is your living situation today?: I have a steady place to live Within the past 12 months, did the food you bought not last and you didn't have the money to get more?: I choose not to answer this question Within the past 12 months, did you worry whether your food would run out before you got money to buy more?: I choose not to answer this question Do you have trouble paying for medicines?: No Do you have trouble getting transportation to medical appointments?: No Do you have trouble paying your heating and electricity bill?: No Do you have trouble taking care of your child, family member or friend?: No Do you have trouble with day-to-day activities such as bathing, preparing meals, shopping, managing finances, etc.?: No Are you currently unemployed and looking for a job?: No Are you interested in more education?: No Please select the resources that you would like help with: None Currently or been in a relationship where the following occur: No concerns reported THRIVE Score: 0 MUKESH-7 AMB Questionnaire MUKESH-7 Date MUKESH - 7 assessed: 08/17/24 Source: Developed by Drs. Brad Medrano, Shweta Harrington, Eddie Del Rosario and colleagues, with an educational valentina from [employer]. Review of Systems Const Reports as per HPI Eyes Denies change in vision ENT Reports no additional complaints Card Reports no additional complaints Resp Reports as per HPI, Denies cough and Denies pain on inspiration GI Reports no additional complaints Reports no additional complaints Musc Reports as per HPI Skin/Breast Denies lesions and Denies wounds Neuro Reports no additional complaints Ehsan/Lymph Reports no additional complaints Physical exam (Primary Care) Vital Signs: Last Vital Signs Temp 97.8 F 02/17/25 13:53 Pulse 93 02/17/25 13:53 Resp 16 02/17/25 13:53 BP 132/70 02/17/25 13:53 Pulse Ox 94 02/17/25 13:53 Oxygen Delivery Method Room Air 02/17/25 13:53 BMI result Body Mass Index 31.3 Tobacco/Smoking Status: Tobacco use Status Tobacco use date assessed 02/17/25 02/17/25 13:57 Patient Tobacco Use Status Former Tobacco user 02/17/25 13:57 e-Cigarette/Vaping Use Never Used 02/17/25 13:57 Thrive Assessment: Date of Thrive Assessment Date Thrive assessed 08/17/24 02/17/25 13:57 Currently or been in a relationship where the following occur: No concerns reported Const General: no acute distress and alert Orientation/consciousness: patient oriented x3 HENMT Ears: external ears normal General nose exam: Normal external nose present Mouth: moist mucous membranes Eyes General: appearance normal, both eyes and all related structures Neck Neck: Yes full ROM, Yes no lymphadenopathy and Yes supple Resp Effort & Inspection: normal respiratory effort and able to speak in complete sentences Auscultation: clear to auscultation bilaterally Cardio Rate: regular rate Rhythm: regular rhythm Heart sounds: S1 normal heart sound present and S2 normal heart sound present GI Palpation (GI): Soft to palpation, nontender and no masses Auscultation: normal bowel sounds Back/Spine/Pelvis Other: Slight tenderness on palpation over paraspinal muscle in posterior cervical spine. Marked curvature in thoracolumbar spine noted, with patient till to more towards the right. No tenderness on palpation over lower back, straight leg raising sign negative bilaterally Skin General skin exam: no rashes or lesions noted Neuro General: patient oriented x3, tone normal, moves all extremities and no focal motor deficits Cranial nerves: Yes CN's II-XII intact bilaterally Cognition (Neuro): normal cognition Extrem General: Yes full ROM, Yes no joint enlargement, Yes no clubbing, cyanosis or edema and Yes no calf tenderness Psych Appearance: grossly normal and well kempt Mental Status: mental status grossly normal Speech and movement: Normal speech and movement present Affect: normal affect Attitude: cooperative Coding Level of Care Code Est Pt Level 4 (26665) Diagnoses History of fall within past 90 days Z91.81 Spondylosis of thoracic spine M47.814 Spondylosis of cervical spine M47.812 Scoliosis (and kyphoscoliosis), idiopathic M41.20 Assessment & Plan Assessment & Plan (1) History of fall within past 90 days: Code(s): Z91.81 - History of falling Category: Medical (2) Spondylosis of thoracic spine: Code(s): M47.814 - Spondylosis without myelopathy or radiculopathy, thoracic region Category: Medical (3) Spondylosis of cervical spine: Code(s): M47.812 - Spondylosis without myelopathy or radiculopathy, cervical region Category: Medical (4) Scoliosis (and kyphoscoliosis), idiopathic: Code(s): M41.20 - Other idiopathic scoliosis, site unspecified Category: Medical Plan continue using Tylenol , may increase dose to 1 every 8 hours as needed and Celecoxib once a day for pain managemen. A heating pad is recommended for additional relief, and the use of Salonpas patches was discussed as an alternative, the latter however is not an alternative as she lives alone and can not apply patch to her back by herself. A prescription for Tizanidine, a muscle relaxant, was provided to be taken at bedtime as needed. The patient is advised to engage in stretching exercises to alleviate stiffness. Do scheduled physical therapy once the necessary paperwork is completed. Letter excusing her from work from until 02/23/25 given to patient Patient was informed and verbally consented to the use of an ambient scribe for clinic note documentation during this visit. Medications: New tizanidine 2 mg PO BEDTIME PRN 20 tabs 0RF muscle spasticity
== END 2025-02-17 14:49 | disposition home or self-care (01) ==
PROVIDERS: PCP Internal Medicine; Visit Provider Internal Medicine
DX: Z91.81 History of falling (principal); M47.814 Spondylosis without myelopathy or radiculopathy, thoracic region; M47.812 Spondylosis without myelopathy or radiculopathy, cervical region; M41.20 Other idiopathic scoliosis, site unspecified

== ENCOUNTER → 2025-02-17 13:49 | Outpatient (BNVA) | payer MEDICARE, SELFPAY | PROVIDERS: PCP Internal Medicine; Visit Provider Internal Medicine | DX: M47.814 Spondylosis without myelopathy or radiculopathy, thoracic region (principal); M47.812 Spondylosis without myelopathy or radiculopathy, cervical region; M41.20 Other idiopathic scoliosis, site unspecified; Z91.81 History of falling | CPT/HCPCS: 99212 ==

== ENCOUNTER 2025-02-24 10:50 | Outpatient (REF) | payer MEDICARE, SELFPAY ==
[2025-02-24 14:57] LABS: MANUAL DIFF FLAG NO
[2025-02-24 14:59] LABS: Hematocrit 42.2 % (37.0-47.0); Hemoglobin 14.0 g/dl (12.0-16.0); Imm Gran Abs Auto 0.04 X10*3/uL (0.00-0.03); Imm Gran Pct Auto 0.4 % (0.0-0.4); Lymphocytes Absolute Auto 2.3 X10*3/uL (1.2-4.9); Mean Corpuscular HGB Conc 33.2 g/dl (31.0-35.0); Mean Corpuscular Hemoglobin 30.2 pg (27.0-33.0); Mean Corpuscular Volume 90.9 fL (80.0-98.0); NRBC Abs Auto 0.000 X10*3/uL (0.0-0.012); NRBC Pct Auto 0.0 /100WBC (0.0-0.2); Platelet Count 320 X10*3/uL (160-400); Red Blood Count 4.64 X10*6/uL (4.20-5.50); White Blood Count 11.1 X10*3/uL (4.8-10.8)
[2025-02-24 16:12] LABS: Alanine Aminotransferase 13 U/L (0-31); Albumin Level 4.0 g/dL (3.5-5.0); Alkaline Phosphatase 75 U/L (39-117); Anion Gap 15 (12-20); Aspartate Amino Transferase 27 U/L (5-31); Blood Urea Nitrogen 23 mg/dL (9-16); Calcium 9.9 mg/dL (8.4-10.2); Carbon Dioxide 32 mmol/L (22-29); Chloride 98 mmol/L (96-108); Cholesterol 179 mg/dL (<200); Estimated Glomerular Filt Rate > 60; HDL Cholesterol 54 mg/dL (>40); Potassium 3.9 mmol/L (3.3-5.1); Sodium 141 mmol/L (135-145); Total Protein 7.3 g/dL (6.5-8.0); Triglycerides 87 mg/dL (<150)
== END 2025-02-24 10:51 | disposition home or self-care (01) ==
LOC: HO.HMGCLDS 10:50
PROVIDERS: PCP Internal Medicine; Visit Provider Internal Medicine
DX: I10 Essential (primary) hypertension (principal); F32.A Depression, unspecified; M81.0 Age-related osteoporosis without current pathological fracture; E66.9 Obesity, unspecified; R06.02 Shortness of breath
CPT/HCPCS: 36415; 80053; 80061; 82306; 84443; 85025

== ENCOUNTER 2025-03-03 13:22 | Outpatient (AMB) | payer MEDICARE, SELFPAY ==
--- OUTSIDE RECORDS SUMMARY | 2024-11-10 12:00 | XMS_ITS ---
Author Organization [facility] Address [address] [place] [id number] Care Team Providers Care Automatic Punch Press Operator Name Role Phone Xiomara HOLLEY, Elsi Delgado Primary Care Provider Un available Milady Vance Unavailable [phone] REASON FOR VISIT Seen Sooner Encounters Encounter Location Date Provider Diagnosis [address] [address] 11/10/2024 Milady Vance Plan Of Treatment Next Appt Details Provider Name:Milady johnson, 04/02/2025 10:00:00 AM, [address] [place] [address], [phone], Progress Notes * Radha CARR ADOB: [birth year] (74 yo F)Acc No.[id number]:11/10/2024 Progress Note Patient: Margot GHOSH Radha Ponce Provider: Hilaria Vance DPM :1950 A ge:74 Y S ex:Female Date:11/10/2024 Address:[address] [place] [address], [address] [place] [address], [place], [place] Pcp:Tye Oviedo Subjective: * Chief Complaints: * [...] 0 11/10/2024 Generated for Alesha mijares/Connor/Rosa on: 0 03/03/2025 02:12 PM EDT
--- NOTE | 2025-03-03 13:37 | MHC.PC.OV ---
Vital Signs 03/03/25 13:38 Height 4 ft 11 in Weight 152 lb BMI 30.7 BP 112/68 Blood Pressure Location Lt brachial Position Sitting Respiration 16 Pulse 82 Pulse Source Pulse Oximeter Temp 98.1 F Temp Source Oral Pulse Oximetry (%) 97 Oxygen Delivery Method Room Air Intake Visit Reasons: HTN follow up Intake Note: Pt is here today for her f/u HTN Allergies No Known Allergies Allergy (Verified 03/03/25 13:56) Medication List - Last Reconciled 03/03/25 by Elsi Solano MD alpha lipoic acid 300 mg PO DAILY calcium carbonate 600 mg PO BID celecoxib 200 mg PO DAILY PRN cholecalciferol (vitamin D3) 50 mcg PO DAILY fluoxetine 10 mg PO DAILY hydrochlorothiazide 25 mg PO DAILY metoprolol succinate ER 25 mg PO DAILY oxybutynin chloride ER 15 mg PO DAILY tizanidine 2 mg PO BEDTIME PRN Tobacco use date assessed: 03/03/25 Fall risk assessment: No Falls in past year Last assessed Fall Risk: 03/03/25 Dental Screening Dental Screen Date: 02/15/25 HPI HTN follow up HPI Details - The patient is a 74-year-old female presenting with musculoskeletal pain and follow-up on her hypertension. Currently taking hydrochlorothiazide and metoprolol succinate.. - Scoliosis: Reports chronic lower back pain, primarily in the lower region, exacerbated by twisting and standing. Advised to use topical treatments and engage in stretching exercises. Physical therapy scheduled for March 17. - recent fasting labs showednelevated BUN levels, suggesting dehydration. Advised to increase water intake. - Hyperlipidemia: LDL cholesterol slightly elevated at 108 mg/dL. Advised to monitor diet and avoid high-cholesterol foods. - Dizziness: Reports feeling dissociated and spacey, possibly related to medication or low blood sugar from irregular meals. Advised to eat regular meals and snacks. [facility] Medical History (Updated 03/09/25 @ 02:15 by Elsi Solano MD) Essential hypertension Spondylosis of thoracic spine Spondylosis of cervical spine Scoliosis (and kyphoscoliosis), idiopathic OAB (overactive bladder) Urinary incontinence History of hepatitis C History of gallstones Osteoporosis Cochlear implant in place Peripheral neuropathy Obesity Depression Osteoarthritis Closed fracture of base of metatarsal bone with delayed healing History of deep venous thrombosis (DVT) of distal vein of right lower extremity Family History Brother Substance use disorder Daughter Mental health disorder Maternal Grandmother Diabetes mellitus Maternal Aunt Diabetes mellitus Mother Diabetes mellitus Father Bladder cancer Social History Housing: Apartment Patient Tobacco Use Status: Former Tobacco user e-Cigarette/Vaping Use: Never Used service: No Current occupational status: retired Current occupation: work part-time Cognitive needs: No Hearing needs: No Vision needs: Yes Questionnaire Thrive Questionnaire Date Thrive assessed: 08/17/24 I am a: Patient What is your living situation today?: I have a steady place to live Within the past 12 months, did the food you bought not last and you didn't have the money to get more?: I choose not to answer this question Within the past 12 months, did you worry whether your food would run out before you got money to buy more?: I choose not to answer this question Do you have trouble paying for medicines?: No Do you have trouble getting transportation to medical appointments?: No Do you have trouble paying your heating and electricity bill?: No Do you have trouble taking care of your child, family member or friend?: No Do you have trouble with day-to-day activities such as bathing, preparing meals, shopping, managing finances, etc.?: No Are you currently unemployed and looking for a job?: No Are you interested in more education?: No Please select the resources that you would like help with: None Currently or been in a relationship where the following occur: No concerns reported THRIVE Score: 0 MUKESH-7 AMB Questionnaire MUKESH-7 Date MUKESH - 7 assessed: 08/17/24 Source: Developed by Drs. Brad Medrano, Shweta Harrington, Eddie Del Rosario and colleagues, with an educational valentina from [employer]. Review of Systems Const Reports as per HPI Eyes Denies change in vision ENT Reports no additional complaints Card Reports no additional complaints Resp Reports as per HPI, Denies cough and Denies pain on inspiration GI Reports no additional complaints Reports no additional complaints Musc Reports as per HPI Skin/Breast Denies lesions and Denies wounds Neuro Reports no additional complaints Psych Reports no additional complaints Ehsan/Lymph Reports no additional complaints Physical exam (Primary Care) Vital Signs: Last Vital Signs Temp 98.1 F 03/03/25 13:38 Pulse 82 03/03/25 13:38 Resp 16 03/03/25 13:38 BP 112/68 03/03/25 13:38 Pulse Ox 97 03/03/25 13:38 Oxygen Delivery Method Room Air 03/03/25 13:38 BMI result Body Mass Index 30.7 Tobacco/Smoking Status: Tobacco use Status Tobacco use date assessed 03/03/25 03/03/25 13:42 Patient Tobacco Use Status Former Tobacco user 03/03/25 13:42 e-Cigarette/Vaping Use Never Used 03/03/25 13:42 Thrive Assessment: Date of Thrive Assessment Date Thrive assessed 08/17/24 03/03/25 13:42 Currently or been in a relationship where the following occur: No concerns reported Const General: no acute distress and alert Orientation/consciousness: patient oriented x3 HENMT Ears: external ears normal General nose exam: Normal external nose present Mouth: moist mucous membranes Eyes General: appearance normal, both eyes and all related structures Neck Neck: Yes full ROM, Yes no lymphadenopathy and Yes supple Resp Effort & Inspection: normal respiratory effort and able to speak in complete sentences Auscultation: clear to auscultation bilaterally Cardio Rate: regular rate Rhythm: regular rhythm Heart sounds: S1 normal heart sound present and S2 normal heart sound present GI Palpation (GI): Soft to palpation, nontender and no masses Auscultation: normal bowel sounds Back/Spine/Pelvis Other: Slight tenderness on palpation over paraspinal muscle in posterior cervical spine. Marked curvature in thoracolumbar spine noted, with patient till to more towards the right. No tenderness on palpation over lower back, straight leg raising sign negative bilaterally Skin General skin exam: no rashes or lesions noted Neuro General: patient oriented x3, tone normal, moves all extremities and no focal motor deficits Cranial nerves: Yes CN's II-XII intact bilaterally Cognition (Neuro): normal cognition Extrem General: Yes full ROM, Yes no joint enlargement, Yes no clubbing, cyanosis or edema and Yes no calf tenderness Psych Appearance: grossly normal and well kempt Mental Status: mental status grossly normal Speech and movement: Normal speech and movement present Affect: normal affect Attitude: cooperative Coding Level of Care Code Est Pt Level 4 (94837) Complex EM visit Add On G2211 Diagnoses Essential hypertension I10 Scoliosis (and kyphoscoliosis), idiopathic M41.20 Assessment & Plan Assessment & Plan (1) Essential hypertension: Code(s): I10 - Essential (primary) hypertension Category: Medical (2) Scoliosis (and kyphoscoliosis), idiopathic: Code(s): M41.20 - Other idiopathic scoliosis, site unspecified Category: Medical Plan Plan Patient was informed and verbally consented to the use of an ambient scribe for clinic note documentation during this visit. 1. Scoliosis The patient is advised to continue using topical treatments like Salonpas and engage in regular stretching exercises to alleviate symptoms. Physical therapy is scheduled to start on March 17 to further manage the condition. 2. Seasonal Allergies The patient is advised to manage symptoms of seasonal allergies, as indicated by elevated eosinophils in recent blood work. 3. Dehydration The patient is advised to increase water intake to address dehydration, as indicated by elevated BUN levels. 4. Hyperlipidemia The patient is advised to monitor her diet and avoid high-cholesterol foods to manage slightly elevated LDL cholesterol levels. 5. Dizziness The patient is advised to eat regular meals and snacks to maintain stable blood sugar levels and prevent dizziness, which may be related to her medication regimen or low blood sugar. 6. Hypertension controlled on current medications, reinforced importance of following a low-salt diet and getting regular exercise
[2025-03-03 13:38] VITALS: BP 112/68; PULSE 82; RESP 16; TEMP 36.7; O2SAT 97; BMI 30.7
--- OUTSIDE RECORDS SUMMARY | 2025-03-03 14:13 | XMS_ITS | Patient Health Record ---
Author Organization [facility] deirdre [place] Address [address] [place] [address] Care Team Providers Care Marketing Editor Name Role Phone Xiomara HOLLEY, Elsi Delgado Primary Care Provider Un available Milady Vance Unavailable [phone] Allergies No Known Allergies Reason For Referral [...] 7 DAYS Oral; Duration: 84 Days Active Metoprolol Succinate ER 25 MG TAKE 1 TAB LET BY MOUTH DAILY Oral; Duration: 90 Days Active oxyBUTYnin Chloride ER 15 MG TAKE 1 TABL ET BY MOUTH DAILY Oral; Duration: 90 Days Active Lipoic Acid Active Vitamin D Active Vitamin C 500 MG as directed Orally Active Baby Aspirin 06/10/2023 Active Immunizations Vaccine Route Administration Date Status Comme nts Influenza Unknown 03/08/2024 Administered Social History Tobacco Use: Social History Observation [...] Problem Status W/U Status Risk Notes Problem Atherosclerosis of artery of both lower extremities (I70.203) Active confirmed Vital Signs Blood pressure diastolic 80 mm Hg 01/06/2025 Height 4ft 11in in 01/06/2025 Blood pressure systolic 122 mm Hg 01/06/2025 Weight 160 lbs 01/06/2025 BMI 32.31 kg/m2 01/06/2025 Encounters Encounter Location Date Provider Diagnosis [address] [address] 03/27/2024 Milady Perica Atherosclerosis of artery of both lower extremities I70.203 ; Tinea unguium B35.1 ; Pain in left toe(s) M79.675 ; Pain in right toe(s) M79.674 ; Pain in left foot M79.672 ; Pain in left ankle and joints of left foot M25.572 ; Bursitis of intermetatarsal bursa of left foot M77.52 and Metatarsalgia, left foot M77.[address] [address] 06/10/2024 Milady Perica Pain in left foot M79.672 ; Metatarsalgia, left foot M77.42 ; Atherosclerosis of artery of both lower extremities I70.203 ; Tinea unguium B35.1 ; Pain in left toe(s) M79.675 ; Pain in right toe(s) M79.674 and Bursitis of intermetatarsal bursa of left foot M77.[address] [address] 10/23/2024 Milady Perica Atherosclerosis of artery of both lower extremities I70.203 ; Tinea unguium B35.1 ; Pain in left toe(s) M79.675 and Pain in right toe(s) M79.[address] [address] 01/06/2025 Milady Perica Atherosclerosis of artery of both lower extremities I70.203 ; Tinea unguium B35.1 ; Pain in left toe(s) M79.675 and Pain in right toe(s) M79.[address] [address] 08/25/2024 Milady Vance Assessments Encounter Date Diagnosis (ICD Code) Assessment Notes Treatment Notes Treatment Clinical Notes Section Notes 06/10/2024 Metatarsalgia, left foot (ICD-10 - M77.42) 03/27/2024 Atherosclerosis of artery of both lower extremities (ICD-10 - I70.203) 06/10/2024 Pain in left foot (ICD-10 - M79.672) 10/23/2024 Atherosclerosis of artery of both lower extremities (ICD-10 - I70.203) 10/23/2024 Tinea unguium (ICD-10 - B35.1) 01/06/2025 Atherosclerosis of artery of both lower extremities (ICD-10 - I70.203) 10/23/2024 Pain in left toe(s) (ICD-10 - M79.675) 01/06/2025 Tinea unguium (ICD-10 - B35.1) 06/10/2024 Atherosclerosis of artery of both lower extremities (ICD-10 - I70.203) 03/27/2024 Tinea unguium (ICD-10 - B35.1) 03/27/2024 Pain in left toe(s) (ICD-10 - M79.675) 06/10/2024 Tinea unguium (ICD-10 - B35.1) 01/06/2025 Pain in left toe(s) (ICD-10 - M79.675) 10/23/2024 Pain in right toe(s) (ICD-10 - M79.674) 01/06/2025 Pain in right toe(s) (ICD-10 - M79.674) 06/10/2024 Pain in left toe(s) (ICD-10 - [...] Of Treatment Next Appt Details Provider Name:Milady Ponce johnson, 04/02/2025 10:00:00 AM, [address] [place] [address], [phone], Insurance Providers Payer Name Payer Address Payer Phone Subscriber Number Group Number Insured Name Patient Relationship to Insured Coverage Start Date Coverage End Date [facility]-[id number] [address] [address] [place] [address] [id number] Radha Persaud Self - patient is the insured Medical (General) History Medical History History ICD Code Anxiety Back pain Cataracts Hepatitis C High blood pressure Poor circulation Measles Surgical History Surgery Date(Month/Year) cataract surgery 09/11/2015 cataract surgery 11/23/2015
== END 2025-03-03 14:25 | disposition home or self-care (01) ==
LOC: HO.HMCC 13:23
PROVIDERS: PCP Internal Medicine; Visit Provider Internal Medicine
DX: I10 Essential (primary) hypertension (principal); M41.20 Other idiopathic scoliosis, site unspecified

== ENCOUNTER → 2025-03-03 13:22 | Outpatient (BNVA) | payer MEDICARE, SELFPAY | PROVIDERS: PCP Internal Medicine; Visit Provider Internal Medicine | DX: I10 Essential (primary) hypertension (principal); M41.20 Other idiopathic scoliosis, site unspecified | CPT/HCPCS: 99212 ==

== ENCOUNTER 2025-04-07 11:56 | Outpatient (AMB) | payer MEDICARE, SELFPAY ==
[2025-04-07 12:06] VITALS: BP 112/66; PULSE 69; TEMP 36.6; O2SAT 93; BMI 30.1
--- NOTE | 2025-04-07 12:06 | MHC.OFFWIV ---
Intake Vital Signs 04/07/25 12:06 Height 4 ft 11 in Weight 149 lb BMI 30.1 BP 112/66 Blood Pressure Location Lt brachial Position Sitting Pulse 69 Pulse Source Pulse Oximeter Temp 97.8 F Temp Source Oral Pulse Oximetry (%) 93 Oxygen Delivery Method Room Air Intake Visit Reasons: EP right leg swelling/ pain Intake Note: pt presents with a painful and swollen/lumpy area from right medial lower leg into right medial thigh- noticed for about 3 days now. pt reports a hx of DVT Patient Tobacco Use Status: Former Tobacco user Allergies No Known Allergies Allergy (Verified 04/07/25 12:11) Do you need a note to return to daycare/school/sports/work: No HPI HPI Comments History of Present Illness Details History of Present Illness - The patient is a 74-year-old female presenting with right leg pain and swelling. - Reports a history of varicose veins, with current symptoms involving a lumpy vein from the calf to the thigh, causing significant pain. - History of deep vein thrombosis in the same leg approximately 10 years ago, treated with warfarin. - Currently not on anticoagulant therapy. - Denies shortness of breath beyond baseline. General: Cooperative, healthy appearing, comfortable, no acute distress and well developed Orientation: Patient oriented x3 Limitations: No limitations Head: Normal to inspection Ears: Hearing grossly normal bilaterally Nose: Normal External nose present Face and sinus: Normal facial exam Eyes: Appearance normal, both eyes and all related structures Neck: Normal visual inspection and Yes full ROM Respiratory: Normal respiratory effort and able to speak in complete sentences. Skin: No rashes or lesions noted Neuro: Patient oriented x3, gait normal Extremities: varicose veins on BL LE, slight edema in RLE, TTP along varicose vein on right medial calf into thigh but no varicose vein noted beyond the knee. Review of Systems - Cardiovascular: Reports right leg pain and swelling. Denies chest pain or palpitations. - Respiratory: Denies dyspnea or any new respiratory symptoms. All systems reviewed and are unremarkable except as noted in HPI [facility] Medical History (Updated 04/07/25 @ 12:29 by Marisol Moffett PA-C) Essential hypertension Spondylosis of thoracic spine Spondylosis of cervical spine Scoliosis (and kyphoscoliosis), idiopathic OAB (overactive bladder) Urinary incontinence History of hepatitis C History of gallstones Osteoporosis Cochlear implant in place Peripheral neuropathy Obesity Depression Osteoarthritis Closed fracture of base of metatarsal bone with delayed healing History of deep venous thrombosis (DVT) of distal vein of right lower extremity Family History Brother Substance use disorder Daughter Mental health disorder Maternal Grandmother Diabetes mellitus Maternal Aunt Diabetes mellitus Mother Diabetes mellitus Father Bladder cancer Social History Housing: Apartment Patient Tobacco Use Status: Former Tobacco user e-Cigarette/Vaping Use: Never Used service: No Current occupational status: retired Current occupation: work part-time Cognitive needs: No Hearing needs: No Vision needs: Yes Physical Exam Vital Signs: Last Vital Signs Temp 97.8 F 04/07/25 12:06 Pulse 69 04/07/25 12:06 BP 112/66 04/07/25 12:06 Pulse Ox 93 04/07/25 12:06 Oxygen Delivery Method Room Air 04/07/25 12:06 BMI result Body Mass Index 30.1 Assessment & Plan Assessment & Plan (1) Pain and swelling of right lower extremity: Code(s): M79.604 - Pain in right leg; M79.89 - Other specified soft tissue disorders Plan: Assessment and Plan Varicose veins - The patient presents with significant pain and swelling in the right leg, with a history of varicose veins. - Given the patient's history and current symptoms, an ultrasound is necessary to assess for potential DVT. - The patient will be scheduled for an ultrasound in one hour and results will be communicated post-evaluation. Patient was informed and verbally consented to the use of an ambient scribe for clinic note documentation during this visit. Orders: Orders US venous duplex LE RT Today M79.604 - Pain in right leg, M79.89 - Other specified soft tissue disorders Coding Level of Care Code Est Pt Level 4 (47471) Diagnoses Pain and swelling of right lower extremity M79.604; M79.89
== END 2025-04-07 12:44 | disposition home or self-care (01) ==
PROVIDERS: PCP Internal Medicine; Visit Provider Physician Assistant
DX: M79.604 Pain in right leg (principal); M79.89 Other specified soft tissue disorders

== ENCOUNTER 2025-04-07 13:26 | Outpatient (REF) | payer MEDICARE, SELFPAY ==
--- NOTE | ~2025-04-07 | US_ITS ---
EXAMINATION: US TRIPLEX LOWER EXTREMITY, RIGHT CLINICAL INFORMATION: Right leg pain. COMPARISON: None available. TECHNIQUE: Color-flow triplex imaging with spectral analysis and compression Doppler were performed on the right lower extremity. FINDINGS: Respiratory variation, normal compression and augmented flow are noted throughout the right lower extremity. The visualized common femoral vein, superficial femoral vein, profunda femoral vein, popliteal vein and midcalf peroneal and posterior tibial venous segments show no evidence of deep venous thrombosis. Superficial thrombosis is present in the greater saphenous vein in the distal thigh, knee, and proximal calf regions. In addition there are thrombosed varicosities in the proximal and mid calf. There is no Rosales's cyst. US/US venous duplex LE RT IMPRESSION: 1. No evidence of deep venous thrombosis involving the right lower extremity. 2. Superficial thrombosis present in the greater saphenous vein in the distal thigh, knee, and proximal calf region. 3. There are thrombosed varicosities in the right proximal and mid calf. Electronically signed by: Charanjit Hoffman MD 04/07/2025 01:52 PM EDT
== END 2025-04-07 13:27 | disposition home or self-care (01) ==
LOC: HO.HMGCX 13:26
PROVIDERS: PCP Internal Medicine; Visit Provider Physician Assistant
DX: M79.604 Pain in right leg (principal); M79.89 Other specified soft tissue disorders
CPT/HCPCS: 93971; 99212

== ENCOUNTER → 2025-04-07 13:27 | Outpatient (BNV) | payer MEDICARE, SELFPAY | PROVIDERS: PCP Internal Medicine; Visit Provider Radiology Diagnostic Radiology | DX: I82.811 Embolism and thrombosis of superficial veins of right lower extremity (principal); I82.461 Acute embolism and thrombosis of right calf muscular vein | CPT/HCPCS: 93971 ==

== ENCOUNTER 2025-06-15 13:16 | Outpatient (AMB) | payer MEDICARE, SELFPAY ==
--- OUTSIDE RECORDS SUMMARY | 2024-08-26 05:30 | XMS_ITS ---
Author Organization [facility] Address [address] [place] [address] Care Team Providers Care Senior Windows Systems Administrator Name Role Phone Xiomara HOLLEY, Elsi Delgado Primary Care Provider Un available Milady Vance Unavailable [phone] Medications Medication SIG (Take, Route, Frequency, Duration) [...] Active Encounters Encounter Location Date Provider Diagnosis [address] [address] 08/26/2024 Milady Vance Plan Of Treatment Next Appt Details Provider Name:Milady johnson, 07/14/2025 03:00:00 PM, [address] [place], [address], Progress Notes * Radha CARR ADOB: [birth year] (74 yo F)Acc No.[id number]:08/26/2024 Progress Note Patient: Margot Radha GHOSH Provider: Hilaria Vance DPM :1950 A ge:73 Y S ex:Female Date:08/26/2024 Address:[address] [place] [address], [facility]ector Shetty [id number] Pcp:Tye Oviedo Subjective: * Chief Complaints: * [...] 0 08/26/2024 Generated for Alesha mijares/Connor/Rosa on: 08/16/2024 06:09 PM EST
--- OUTSIDE RECORDS SUMMARY | 2024-11-10 11:00 | XMS_ITS ---
Author Organization [facility] Address [address] [place] [address] Care Team Providers Care Road Worker Name Role Phone Xiomara HOLLEY, Elsi Delgado Primary Care Provider Un available Milady Vance Unavailable [phone] REASON FOR VISIT Seen Sooner Encounters Encounter Location Date Provider Diagnosis [address] [address] 11/10/2024 Milady Vance Plan Of Treatment Next Appt Details Provider Name:Milady johnson, 07/14/2025 03:00:00 PM, [address] [place] [address], [address], Progress Notes * Radha CARR ADOB: [birth year] (74 yo F)Acc No.[id number]:11/10/2024 Progress Note Patient: Bimal LARSONlian Ponce Provider: Hilaria Vance DPM :1950 A ge:74 Y S ex:Female Date:11/10/2024 Address:[address] [place] [address], [address] [place] [address], [place], [place] Pcp:Tye Oviedo Subjective: * Chief Complaints: * 1 . Seen Sooner. * Medical History: Objective: * Vitals: Assessment: Plan: * Treatment: * Images: * The named appointment provid er may or may not be the originator of this progress note, and it is not deemed complete until electronically signed by the appointment provider. Sign off status: Pending * Provider: Hilaria Vance, DPM Date: 0 11/10/2024 Generated for Alesha mijares/Connor/Rosa on: 1 08/16/2024 06:07 PM EST
--- OUTSIDE RECORDS SUMMARY | 2025-04-02 05:00 | XMS_ITS ---
Author Organization [facility] Address [address] [place] [phone] Care Team Providers Care Journeyman Powerhouse Operator Name Role Phone Xiomara HOLLEY, Elsi Delgado Primary Care Provider Un available Milady Vacne Unavailable [phone] Brizuela Encounters Encounter Location Date Provider Diagnosis [address] [address] 04/02/2025 Milady Vance Plan Of Treatment Next Appt Details Provider Name:Milady johnson, 07/14/2025 03:00:00 PM, [address] [place] [address], [phone], Progress Notes * Radha CARR ADOB: [birth year] (74 yo F)Acc No.[id number]:04/02/2025 Progress Note Patient: Bimal LARSONlian Ponce Provider: Hilaria Vance DPM :1950 A ge:74 Y S ex:Female Date:04/02/2025 Address:[address] [place] [address], [address] [place] [address], [place], [place] Pcp:Tye Oviedo Subjective: * Chief Complaints: * [...] * Provider: Hilaria Vance, DPTye Date: 0 04/02/2025 Generated for Alesha mijares/Connor/Rosa on: 1 08/16/2024 06:11 PM EST
--- OUTSIDE RECORDS SUMMARY | 2025-05-07 07:45 | XMS_ITS ---
Author Organization [facility] Address [address] [place] [address] Care Team Providers Care Field Kiln Burner Name Role Phone Xiomara HOLLEY, Elsi Delgado Primary Care Provider Un available Milady Vance [phone] Encounters Encounter Location Date Provider Diagnosis [address] [address] 05/07/2025 Milady Vance Plan Of Treatment Next Appt Details Provider Name:Milady johnson, 07/14/2025 03:00:00 PM, [address] [place] [address], [phone], Progress Notes * Radha CARR ADOB: [birth year] (74 yo F)Acc No.[id number]:05/07/2025 Progress Note Patient: Bimal LARSONliteri Johnson Provider: iHlaria Vance DPM :1950 A ge:74 Y S ex:Female Date:05/07/2025 Address:[address] [place] [address], [address] [place] [address], [place], [place] Pcp:Tye Oviedo Subjective: * Chief Complaints: * [...] DPM Date: Generated for Alesha mijares/Connor/Rosa on: 08/16/2024 06:06 PM EST
--- OUTSIDE RECORDS SUMMARY | 2025-05-11 10:15 | XMS_ITS ---
Author Organization [facility] Address [address] [place] [address] Care Team Providers Care Spinner Operator Name Role Phone Xiomara HOLLEY, Elsi Delgado Primary Care Provider Un available Milady Vance [phone] Encounters Encounter Location Date Provider Diagnosis [address] [address] 05/11/2025 Milady Vance Plan Of Treatment Next Appt Details Provider Name:Milady johnson, 07/14/2025 03:00:00 PM, [address] [place] [address], [phone], Progress Notes * Radha CARR ADOB: [birth year] (74 yo F)Acc No.[id number]:05/11/2025 Progress Note Patient: Bimal LARSONliteri Johnson Provider: Hilaria Vance DPM :1950 A ge:74 Y S ex:Female Date:05/11/2025 Address:[address] [place] [address], [address] [place] [address], [place], [place] Pcp:Tye Oviedo Subjective: * Chief Complaints: * [...] Date: 07/11/2024 Generated for Alesha mijares/Connor/Rosa on: 08/16/2024 06:10 PM EST
--- NOTE | 2025-06-15 13:37 | MHC.OFFVIS ---
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 Patient states she had a varicose vein on the right leg that went away . No other complaints. 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 She was referred by her primary care provider,, due to concerns about her veins. An ultrasound on April 07 showed superficial thrombophlebitis without a deep clot, and the patient reports the phlebitic vein on the right side has since resolved. Her past medical history is significant for a deep vein thrombosis in her right leg approximately 10 years ago. She was hospitalized at that time and treated with an IV drip and injections, followed by a course of warfarin. She also reports a history of a vein stripping procedure about 30-35 years ago, which she believes may have been a laser treatment, and recalls a small scar from it. The patient denies a history of smoking or diabetes, though she notes a family history of diabetes on her mother's side. 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 It has been affecting there daily activities including walking and working an ambulatory job at [employer]. It is noted more so in right leg. Patient denies any previous venous surgery or injections. Patient denies any history of DVT/ PE. Ultrasound on 04/07/2025 was negative for DVT Patient denies any history of phlebitis. Trial of compression includes - [id number] They now present for vascular evaluation regarding their varicose veins. [facility] Medical History Superficial thrombophlebitis of right leg Essential hypertension Spondylosis of thoracic spine Spondylosis of cervical spine Scoliosis (and kyphoscoliosis), idiopathic OAB (overactive bladder) Urinary incontinence History of hepatitis C History of gallstones Osteoporosis Cochlear implant in place Peripheral neuropathy Obesity Depression Osteoarthritis Closed fracture of base of metatarsal bone with delayed healing History of deep venous thrombosis (DVT) of distal vein of right lower extremity Family History Brother Substance use disorder Daughter Mental health disorder Maternal Grandmother Diabetes mellitus Maternal Aunt Diabetes mellitus Mother Diabetes mellitus Father Bladder cancer Social History Housing: Apartment Patient Tobacco Use Status: Former Tobacco user e-Cigarette/Vaping Use: Never Used service: No Current occupational status: retired Current occupation: work part-time Cognitive needs: No Hearing needs: No Vision needs: Yes Review of Systems Const Reports as per HPI ENT Reports no additional complaints Card Denies chest pain, Denies chest pain at rest and Denies chest pain with activity Resp Denies chest congestion and Denies cough GI Reports no additional complaints Musc Details: pain over varicosities, aching of lower extremities, swelling, cramping, heaviness and tiredness, itching Denies abnormal gait Skin/Breast Reports pruritus and Denies wounds Neuro Reports no additional complaints and Denies abnormal gait Psych Denies no additional complaints Physical Exam Const General: cooperative, healthy appearing and comfortable Orientation/consciousness: oriented to person, oriented to place and oriented to time Neck Carotids: no bruits Chest Chest palpation & inspection: normal inspection of the chest and normal palpation of entire chest wall Resp Effort & Inspection: normal respiratory effort and able to speak in complete sentences Cardio Rate: regular rate Heart sounds: S1 normal heart sound present and S2 normal heart sound present Peripheral pulses: Peripheral pulses 2+ throughout GI Inspection: Yes normal to inspection Skin Other: +2 edema, large rope-like varicosities greater than 4 mm CEAP Classification C4 - skin color changes Ep - Etiology Primary As - superficial veins P - reflux General skin exam: dry skin Neuro General: oriented to person, oriented to place and oriented to time Extrem Right lower extremity: full ROM, normal capillary refill and edema Left lower extremity: full ROM, normal capillary refill and edema Psych Mental Status: mental status grossly normal Assessment & Plan Assessment & Plan (1) Varicose veins of right lower extremity with inflammation: Code(s): I83.11 - Varicose veins of right lower extremity with inflammation Category: Medical Plan: In short, the patient has evidence of venous insufficiency. I have discussed the pathophysiology with the patient. In addition I have provided informational material regarding venous disease to the patient. We have discussed conservative measures including compression, elevation, and exercise. I have also provided a handout regarding appropriate use of compression stockings and where to purchase good compression stockings as well. I have taken the liberty of ordering venous insufficiency testing with the patient. They will follow up with me after testing. The patient had an opportunity to ask questions regarding the treatment plan. All questions were answered. Imaging studies, laboratory studies and physical exam results were discussed and reviewed in detail. No major barriers to understanding were identified. The patient expressed understanding and agreement with the above treatment plan. The patient is aware they should contact our office by phone for worsening of the current condition or the appearance of new symptoms. Thank you for allowing me to participate in the vascular care of this patient. If you have any questions or concerns regarding the treatment for the above condition please do not hesitate to contact me. The office telephone contact is [phone]. This note is constructed using voice recognition software. While every effort has been made to ensure accuracy, bus transportation manager errors may have been included. Thank you for allowing me to participate in the care of your patient. Yours sincerely, Yg Monroe MD, FACS, R.P.V.I. Orders: Orders US venous duplex LE BI Today I83.11 - Varicose veins of right lower extremity with inflammation Coding Level of Care Code New Pt Level 4 (26668) Diagnoses Varicose veins of right lower extremity with inflammation I83.11
--- OUTSIDE RECORDS SUMMARY | 2025-06-15 18:05 | XMS_ITS | Encounter Summary ---
Author Organization [facility] Prior to 05/08/2024 Address [address] [place] [address] Care Team Providers Care Inspector Hairspring Truing Name Role Phone Cait Redd MD Primary Care Provider [phone] Reason for Visit * Reason Onset Date Comments APPOINTMENT 03/31/2024 Encounter Details Date Type Department Care Team Description 03/31/2024 Telephone Adult Medicine [address] [address] Cait Redd MD [address] [place] [id number] APPOINTMENT Social History Tobacco Use Types Packs/Day [...] on filedocumented in this encounter Care Teams Inspector Hairspring Truing Relationship Specialty Start Date End Date Cait Redd MD [address] [place] [address] PCP - General 01/11/09 documented as of this encounter
--- OUTSIDE RECORDS SUMMARY | 2025-06-15 18:05 | XMS_ITS | Encounter Summary ---
Author Organization [facility] Prior to 05/08/2024 Address [address] [place] [address] Care Team Providers Care Waredresser Name Role Phone Cait Redd MD Primary Care Provider [phone] Reason for Visit * Reason Comments E-prescribe Rx Request Encounter Details Date Type Department Care Team Description 01/20/2024 Refill Adult Medicine [facility] [address] [place] [address] Clarisa Greenwood PADarnellC [address] [place] [address] E-prescribe Rx Request Social History Tobacco Use [...] encounter Miscellaneous Notes * Telephone Encounter - Kendy Masonshalini - 01/22/2024 2:38 PM EDT Pending office visit 04/09/2024 Last office visit 10/01/2023 Lab Results Component Value Date NA 138 04/10/2023 K 4.1 04/10/2023 CO2 31 04/10/2023 CL 101 04/10/2023 BUN 24 04/10/2023 CREAT 1.01 04/10/2023 GLU 93 04/10/2023 CA 9.7 04/10/2023 GFR 58 04/10/2023 documented in this encounter Plan of Treatment Not on file documented as of this encounter Visit Diagnoses Not on filedocumented in this encounter Care Teams Waredresser Relationship Specialty Start Date End Date Cait Redd MD [address] [place] [address] PCP - General 01/11/09 documented as of this encounter
--- OUTSIDE RECORDS SUMMARY | 2025-06-15 18:05 | XMS_ITS | Encounter Summary ---
Author Organization [facility] Prior to 05/08/2024 Address [address] [place] [address] Care Team Providers Care Senior Ui Software Engineer Name Role Phone Cait Redd MD Primary Care Provider [phone] Encounter Details Date Type Department Care Team Description 03/08/2020 Orders Only Medical Records [address] [place] [address] Salvatore Norman FNP [address] [place] [address] Social History Tobacco Use Types Packs/Day Years [...] on filedocumented in this encounter Care Teams Senior Ui Software Engineer Relationship Specialty Start Date End Date Cait Redd MD [address] [place] [address] PCP - General 01/11/09 documented as of this encounter
--- OUTSIDE RECORDS SUMMARY | 2025-06-15 18:06 | XMS_ITS | Encounter Summary ---
Author Organization [facility] Prior to 05/08/2024 Address [address] [place] [address] Care Team Providers Care Client Experience Manager Name Role Phone Cait Redd MD Primary Care Provider [phone] Encounter Details Date Type Department Care Team Description 06/27/2023 Walk In Clinic Visit Medical Records [address] [place] [address] Lolis Balderrama DO Social History Tobacco Use [...] on filedocumented in this encounter Care Teams Client Experience Manager Relationship Specialty Start Date End Date Cait Redd MD [address] [place], [place] [id number] PCP - General 01/11/09 documented as of this encounter
--- OUTSIDE RECORDS SUMMARY | 2025-06-15 18:06 | XMS_ITS | Encounter Summary ---
Author Organization [facility] Prior to 05/08/2024 Address [address] [place] [address] Care Team Providers Care Director Of Training Name Role Phone Cait Redd MD Primary Care Provider [phone] Encounter Details Date Type Department Care Team Description 03/04/2019 Pt. Non Urgent Medical Question Adult Medicine [address] [address] Salvatore Norman FNP [address] [place] [address] Social History Tobacco Use Types Packs/Day Years [...] Telephone Encounter - Odalis Hernández M.A. - 03/05/2019 9:03 AM EDTFrom: Radha Carr To: MONISHA Steiner Sent: 03/04/2019 10:27 PM EDT Subject: telephone number Nikhil, I have a new telephone number. It is . Radha Carr documented in this encounter Plan of Treatment Not on file documented as of this encounter Visit Diagnoses Not on filedocumented in this encounter Care Teams Director Of Training Relationship Specialty Start Date End Date Cait Redd MD [address] [place] [address] PCP - General 01/11/09 documented as of this encounter
--- OUTSIDE RECORDS SUMMARY | 2025-06-15 18:06 | XMS_ITS | Encounter Summary ---
Author Organization [facility] Prior to 05/08/2024 Address [address] [place] [address] Care Team Providers Care Dependency Program Director Name Role Phone Cait Redd MD Primary Care Provider [phone] Encounter Details Date Type Department Care Team Description 11/18/2021 Pt. Non Urgent Medic al Question Adult Medicine [address] [address] Vidhi Villalta PA-C Social History Tobacco Use [...] on filedocumented in this encounter Care Teams Dependency Program Director Relationship Specialty Start Date End Date Cait Redd MD [address] [place] [address] PCP - General 01/11/09 documented as of this encounter
--- OUTSIDE RECORDS SUMMARY | 2025-06-15 18:06 | XMS_ITS | Encounter Summary ---
Author Organization [facility] Prior to 05/08/2024 Address [address] [place] [address] Care Team Providers Care Gre Tutor Name Role Phone Cait Redd MD Primary Care Provider [phone] Encounter Details Date Type Department Care Team Description 09/08/2019 Release of Information Medical Records [address] [place] [address] Abstract, Provider Social History Tobacco Use Types [...] on filedocumented in this encounter Care Teams Gre Tutor Relationship Specialty Start Date End Date Cait Redd MD [address] [place] [phone] PCP - General 01/11/09 documented as of this encounter
--- OUTSIDE RECORDS SUMMARY | 2025-06-15 18:06 | XMS_ITS | Encounter Summary ---
Author Organization [facility] Prior to 05/08/2024 Address [address] [place] [address] Care Team Providers Care Assembler Metal Building Name Role Phone Cait Redd MD Primary Care Provider [phone] Encounter Details Date Type Department Care Team Description 06/27/2023 Cash Processor Report Medical Records [address] [place] [address] Lolis Balderrama DO Social History Tobacco Use [...] filedocumented in this encounter Care Teams Assembler Metal Building Relationship Specialty Start Date End Date Cait Redd MD [address] [place] [address] PCP - General 01/11/09 documented as of this encounter
--- OUTSIDE RECORDS SUMMARY | 2025-06-15 18:07 | XMS_ITS | Encounter Summary ---
Author Organization [facility] Prior to 05/08/2024 Address [address] [place] [address] Care Team Providers Care Nutrition Teacher Name Role Phone Cait Redd MD Primary Care Provider [phone] Reason for Visit * Reason Onset Date Comments LAB WORK 06/07/2016 Encounter Details Date Type Department Care Team Description 06/07/2016 Telephone Gastroenterology - [address] [address] Yuval Santiago MD LAB WORK Social History [...] on filedocumented in this encounter Care Teams Nutrition Teacher Relationship Specialty Start Date End Date Cait Redd MD [address] [place] [address] PCP - General 01/11/09 documented as of this encounter
--- OUTSIDE RECORDS SUMMARY | 2025-06-15 18:07 | XMS_ITS | Encounter Summary ---
Author Organization [facility] Prior to 05/08/2024 Address [address] [place] [address] Care Team Providers Care Hood Maker Name Role Phone Cait Redd MD Primary Care Provider [phone] Encounter Details Date Type Department Care Team Description 08/27/2010 Hospital Medical Records [address] [place] [address] Huong Choi Social History Tobacco Use Types [...] on filedocumented in this encounter Care Teams Hood Maker Relationship Specialty Start Date End Date Cait Redd MD [address] [place] [address] [phone] PCP - General 01/11/09 documented as of this encounter
--- OUTSIDE RECORDS SUMMARY | 2025-06-15 18:07 | XMS_ITS | Encounter Summary ---
Author Organization [facility] Prior to 05/08/2024 Address [address] [place] [address] Care Team Providers Care Accessibility Lift Technician Name Role Phone Cait Redd MD Primary Care Provider [phone] Encounter Details Date Type Department Care Team Description 09/26/2018 Pt. Non Urgent Medical Question Adult Medicine [address] [address] Salvatore Norman FNP [address] [place] [address] Social History Tobacco Use Types Packs/Day Years [...] on filedocumented in this encounter Care Teams Accessibility Lift Technician Relationship Specialty Start Date End Date Cait Redd MD [address] [place] [address] PCP - General 01/11/09 documented as of this encounter
--- OUTSIDE RECORDS SUMMARY | 2025-06-15 18:08 | XMS_ITS | Encounter Summary ---
Author Organization [facility] Prior to 05/08/2024 Address [address] [place] [address] Care Team Providers Care Chief Medical Officer Name Role Phone Cait Redd MD Primary Care Provider Encounter Details Date Type Department Care Team Description 04/06/2015 Release of Information Medical Records [address] [place] [address] Abstract, Provider Social History Tobacco Use Types [...] on filedocumented in this encounter Care Teams Chief Medical Officer Relationship Specialty Start Date End Date Cait Redd MD [address] [place] [address] [phone] PCP - General 01/11/09 documented as of this encounter
--- OUTSIDE RECORDS SUMMARY | 2025-06-15 18:08 | XMS_ITS | Encounter Summary ---
Author Organization [facility] Prior to 05/08/2024 Address [address] [place] [address] Care Team Providers Care Portfolio Analyst Name Role Phone Cait Redd MD Primary Care Provider [phone] Encounter Details Date Type Department Care Team Description 06/09/2015 Pt. Non Urgent Medical Question Adult Medicine [address] [address] Cait Redd MD [address] [place] [address] Social History Tobacco Use Types Packs/Day Years [...] MD Sent: 06/09/2015 8:43 AM EST Subject: rotary drier operator referral I do not have a rotary drier operator. I thought samantha had a rotary drier operator that I could make an appointment with documented in this encounter Plan of Treatment Not on file documented as of this encounter Visit Diagnoses Not on filedocumented in this encounter Care Teams Portfolio Analyst Relationship Specialty Start Date End Date Cait Redd MD [address] [place] [address] PCP - General 01/11/09 documented as of this encounter
--- OUTSIDE RECORDS SUMMARY | 2025-06-15 18:08 | XMS_ITS | Encounter Summary ---
Author Organization [facility] Prior to 05/08/2024 Address [address] [place] [address] Care Team Providers Care Rn Wound Care Name Role Phone Cait Redd MD Primary Care Provider [phone] Reason for Visit * Reason Comments E-prescribe Rx Request Encounter Details Date Type Department Care Team Description 10/17/2015 Refill Adult Medicine [address] [address] Cait Redd MD [address] [place] [address] [phone] E-prescribe Rx Request Social History Tobacco Use [...] Telephone Encounter - Odalis Hernández M.A. - 10/17/2015 3:06 PM EDT Component Value Date ALB 4.1 04/14/2014 SGOT 34 03/31/2015 SGPT 31 03/31/2015 TBILI 0.4 04/14/2014 DBILI 0.1 04/14/2014 IBILI 0.3 04/14/2014 ALKPHOS 77 04/14/2014 TP 6.8 04/14/2014 * Telephone Encounter - Nithya Margyvane - 10/17/2015 1:45 PM EDT Patient would like script to be: E-PRESCRIBED/FAXED TO PHARMACY WHEN WAS THE PATIENT'S LAST APPOINTMENT IN ADULT MEDICINE? 09/27/15 WHEN WAS THE LAST TIME THE PATIENT SAW THEIR PCP? 09/15/15 Does patient have an upcoming appointment? No-patient refused appointment, will call back to book appointment (THE MEDICATION REQUESTED IS ON THE MED LIST ABOVE) All of the medications requested were on the CURRENT MEDS list Did you check the Pharmacy information above?: YES Patient wants: 30 -day supply Is this a mail order prescription request ? NO Patients current insurance carrier is: Payor: WORKERS COMP / Plan: WORK[place] / Product Type: OTHER documented in this encounter Plan of Treatment Not on file documented as of this encounter Visit Diagnoses Not on filedocumented in this encounter Care Teams Rn Wound Care Relationship Specialty Start Date End Date Cait Redd MD [address] [place] [address] PCP - General 01/11/09 documented as of this encounter
--- OUTSIDE RECORDS SUMMARY | 2025-06-15 18:09 | XMS_ITS | Encounter Summary ---
Author Organization [facility] Prior to 05/08/2024 Address [address] [place] [address] Care Team Providers Care Carbon Sequestration Plant Engineer Name Role Phone Cait Redd MD Primary Care Provider [phone] Encounter Details Date Type Department Care Team Description 12/01/2014 Business Doc Medical Records [address] [place] [address] Abstract, Provider Social History Tobacco Use Types [...] on filedocumented in this encounter Care Teams Carbon Sequestration Plant Engineer Relationship Specialty Start Date End Date Cait Redd MD [address] [place] [address] [phone] PCP - General 01/11/09 documented as of this encounter
--- OUTSIDE RECORDS SUMMARY | 2025-06-15 18:09 | XMS_ITS | Encounter Summary ---
Author Organization [facility] Prior to 05/08/2024 Address [address] [place] [address] Care Team Providers Care Personal Chef Name Role Phone Cait Redd MD Primary Care Provider [phone] Encounter Details Date Type Department Care Team Description 03/14/2018 Release of Information Medical Records [address] [place] [address] Abstract, Provider Social History Tobacco Use Types [...] on filedocumented in this encounter Care Teams Personal Chef Relationship Specialty Start Date End Date Cait Redd MD [address] [place] [address] [phone] PCP - General 01/11/09 documented as of this encounter
--- OUTSIDE RECORDS SUMMARY | 2025-06-15 18:09 | XMS_ITS | Encounter Summary ---
Author Organization [facility] Prior to 05/08/2024 Address [address] [place] [address] Care Team Providers Care Dry Curer Name Role Phone Cait Redd MD Primary Care Provider [phone] Encounter Details Date Type Department Care Team Description 11/22/2014 Business Doc Medical Records [address] [place] [address] Abstract, Provider Social History Tobacco Use Types [...] on filedocumented in this encounter Care Teams Dry Curer Relationship Specialty Start Date End Date Cait Redd MD [address] [place] [address] [phone] PCP - General 01/11/09 documented as of this encounter
--- OUTSIDE RECORDS SUMMARY | 2025-06-15 18:09 | XMS_ITS | Encounter Summary ---
Author Organization [facility] Prior to 05/08/2024 Address [address] [place] [address] Care Team Providers Care Cop Breaker Name Role Phone Cait Redd MD Primary Care Provider [phone] Encounter Details Date Type Department Care Team Description 03/28/2015 Pt. Non Urgent Medical Question Adult Medicine [address] [address] Cait Redd MD [address] [place] [address] [phone] Social History Tobacco Use Types Packs/Day Years [...] insurance. I have new medical insurance through [employer], Detention Options ([employer]) can I make an appointment with your urology dept? I am taking Oxbutynin ER 10 mgs for my bladder control problems documented in this encounter Plan of Treatment Not on file documented as of this encounter Visit Diagnoses Not on filedocumented in this encounter Care Teams Cop Breaker Relationship Specialty Start Date End Date Cait Redd MD [address] [place] [address] PCP - General 01/11/09 documented as of this encounter
--- OUTSIDE RECORDS SUMMARY | 2025-06-15 18:09 | XMS_ITS | Encounter Summary ---
Author Organization [facility] Prior to 05/08/2024 Address [address] [place] [address] Care Team Providers Care Film Rental Clerk Name Role Phone Cait Redd MD Primary Care Provider [phone] Encounter Details Date Type Department Care Team Description 05/24/2017 Log Loader Report Medical Records [address] [place] [address] Mindy Cobb PA-C Social History Tobacco Use [...] on filedocumented in this encounter Care Teams Film Rental Clerk Relationship Specialty Start Date End Date Cait Redd MD [address] [place] [address] PCP - General 01/11/09 documented as of this encounter
--- OUTSIDE RECORDS SUMMARY | 2025-06-15 18:09 | XMS_ITS | Encounter Summary ---
Author Organization [facility] Prior to 05/08/2024 Address [address] [place] [address] Care Team Providers Care Shuttle Veneering Supervisor Name Role Phone Cait Redd MD Primary Care Provider Encounter Details Date Type Department Care Team Description 12/23/2013 Realty Loan Specialist Report Medical Records [address] [place] [address] Te Sheffield Social History Tobacco Use Types [...] on filedocumented in this encounter Care Teams Shuttle Veneering Supervisor Relationship Specialty Start Date End Date Cait Redd MD [address] [place], [place] [phone] PCP - General 01/11/09 documented as of this encounter
--- OUTSIDE RECORDS SUMMARY | 2025-06-15 18:09 | XMS_ITS | Encounter Summary ---
Author Organization [facility] Prior to 05/08/2024 Address [address] [place] [address] Care Team Providers Care Coal Pipeline Operator Name Role Phone Cait Redd MD Primary Care Provider [phone] Encounter Details Date Type Department Care Team Description 04/25/2014 Pt. Non Urgent Medical Question Adult Medicine [address] [address] Cait Redd MD [address] [place] [address] Social History Tobacco Use Types Packs/Day Years [...] on filedocumented in this encounter Care Teams Coal Pipeline Operator Relationship Specialty Start Date End Date Cait Redd MD [address] [place] [address] PCP - General 01/11/09 documented as of this encounter
--- OUTSIDE RECORDS SUMMARY | 2025-06-15 18:10 | XMS_ITS | Encounter Summary ---
Author Organization [facility] Prior to 05/08/2024 Address [address] [place] [address] Care Team Providers Care Box Stacker Name Role Phone Cait Redd MD Primary Care Provider Encounter Details Date Type Department Care Team Description 02/05/2017 Tool Keeper Report Medical Records [address] [place] [address] Ramez Christianson MD Social History Tobacco Use [...] on filedocumented in this encounter Care Teams Box Stacker Relationship Specialty Start Date End Date Cait Redd MD [address] [place], [place] [phone] PCP - General 01/11/09 documented as of this encounter
--- OUTSIDE RECORDS SUMMARY | 2025-06-15 18:10 | XMS_ITS | Encounter Summary ---
Author Organization [facility] Prior to 05/08/2024 Address [address] [place] [address] Care Team Providers Care Grade Checker Name Role Phone Cait Redd MD Primary Care Provider [phone] Encounter Details Date Type Department Care Team Description 12/11/2016 Pt. Non Urgent Medical Question Adult Medicine [address] [address] Cait Redd MD [address] [place] [address] Social History Tobacco Use Types Packs/Day Years [...] on filedocumented in this encounter Care Teams Grade Checker Relationship Specialty Start Date End Date Cait Redd MD [address] [place] [address] PCP - General 01/11/09 documented as of this encounter
--- OUTSIDE RECORDS SUMMARY | 2025-06-15 18:10 | XMS_ITS | Encounter Summary ---
Author Organization [facility] Prior to 05/08/2024 Address [address] [place] [address] Care Team Providers Care Circuitry Negative Inspector Name Role Phone Cait Redd MD Primary Care Provider [phone] Encounter Details Date Type Department Care Team Description 12/10/2016 Orders Only Adult Medicine [address] [address] Salvatore Norman, [address] [phone] Social History Tobacco Use Types Packs/Day Years [...] on filedocumented in this encounter Care Teams Circuitry Negative Inspector Relationship Specialty Start Date End Date Cait Redd MD [address] [place] [address] [phone] PCP - General 01/11/09 documented as of this encounter
--- OUTSIDE RECORDS SUMMARY | 2025-06-15 18:10 | XMS_ITS | Encounter Summary ---
Author Organization [facility] Prior to 05/08/2024 Address [address] [place] [address] Care Team Providers Care Tug Master Name Role Phone Cait Redd MD Primary Care Provider [phone] Reason for Visit * Reason Onset Date Comments Prior Authorization 04/01/2017 Encounter Details Date Type Department Care Team Description 04/01/2017 Telephone Radiology - [address] [phone] Cait Redd MD [address] [place] [address] Prior Authorization Social History Tobacco Use Types [...] on filedocumented in this encounter Care Teams Tug Master Relationship Specialty Start Date End Date Cait Redd MD [address] [place] [address] PCP - General 01/11/09 documented as of this encounter
--- OUTSIDE RECORDS SUMMARY | 2025-06-15 18:10 | XMS_ITS | Encounter Summary ---
Author Organization [facility] Prior to 05/08/2024 Address [address] [place] [address] Care Team Providers Care Recruiting Manager Name Role Phone Cait Redd MD Primary Care Provider [phone] Encounter Details Date Type Department Care Team Description 12/25/2013 Hospital Medical Records [address] [place] [address] Te Sheffield Social History Tobacco Use Types [...] on filedocumented in this encounter Care Teams Recruiting Manager Relationship Specialty Start Date End Date Cait Redd MD [address] [place] [address] [phone] PCP - General 01/11/09 documented as of this encounter
--- OUTSIDE RECORDS SUMMARY | 2025-06-15 18:10 | XMS_ITS | Encounter Summary ---
Author Organization [facility] Prior to 05/08/2024 Address [address] [place] [address] Care Team Providers Care Roof Fitter Name Role Phone Cait Redd MD Primary Care Provider [phone] Encounter Details Date Type Department Care Team Description 10/16/2012 Header Setup Operator Report Medical Records [address] [place] [address] Memo Urban Social History Tobacco Use Types [...] on filedocumented in this encounter Care Teams Roof Fitter Relationship Specialty Start Date End Date Cait Redd MD [address] [place], [place] [phone] PCP - General 01/11/09 documented as of this encounter
--- OUTSIDE RECORDS SUMMARY | 2025-06-15 18:11 | XMS_ITS | Patient Health Record ---
Author Organization [facility] deirdre Sheffield Address [address] [facility] [place] [address] Care Team Providers Care Underwriting Support Specialist Name Role Phone Xiomara HOLLEY, Elsi Delgado Primary Care Provider Un available Milady Vance Unavailable [phone] Allergies No Known Allergies Reason For Referral [...] DAYS Oral; Duration: 84 Days Active Vitamin C 500 MG as directed Orally Active Lipoic Acid Active Vitamin D Active hydroCHLOROthiazide 25 MG TAKE 1 TABLET BY MOUTH DAILY Oral; Duration: 90 Days Active Baby Aspirin 06/10/2023 Not-Ta sesar Immunizations Vaccine Route Administration Date Status Comme nts Influenza Unknown 03/08/2024 Administered Influenza Unknown 04/07/2025 Administered Social History Tobacco Use: Social History [...] Are you an other tobacco user? No AUDIT-C (Standard) Question Answer Notes Did you have a drink containing alcohol in the p ast year? No Points 0 Interpretation Negative Problems Problem Type SNOMED Code ICD Code Onset Dates Problem Status W/U Status Risk Notes Problem Bilateral atherosclerosis of arteries of lower limbs (disorder) ([id number] ) Atherosclerosis of artery of both lower extremities (I70.203) Active confirmed Vital Signs Blood pressure diastolic 78 mm Hg 04/13/2025 Height 4ft 11in in 04/13/2025 Blood pressure systolic 120 mm Hg 04/13/2025 Weight 149 lbs 04/13/2025 BMI 30.09 kg/m2 04/13/2025 Encounters Encounter [facility] Date [facility] [address] [facility]/23/[facility]24 Milady Perica Atherosclerosis of artery of both lower extremities I70.203 ; Tinea unguium B35.1 ; Pain in left toe(s) M79.675 and Pain in right toe(s) M79.[address] [address] 01/06/2025 Milady Perica Atherosclerosis of artery of both lower extremities I70.203 ; Tinea unguium B35.1 ; Pain in left toe(s) M79.675 and Pain in right toe(s) M79.[address] [address] 04/13/2025 Milady Perica Atherosclerosis of artery of both lower extremities I70.203 ; Tinea unguium B35.1 ; Pain in left toe(s) M79.675 and Pain in right toe(s) M79.[address] [address] 08/25/2024 Milady Perica [facility] [address] [facility] [address] [place] [address] 04/09/2025 Milady Perica Assessments Encounter Date Diagnosis (ICD Code) Assessment Notes Treatment Notes Treatment Clinical Notes Section Notes 10/23/2024 Atherosclerosis of artery of both lower extremities (ICD-10 - I70.203) 01/06/2025 Atherosclerosis of artery of both lower extremities (ICD-10 - I70.203) 10/23/2024 Tinea unguium (ICD-10 - B35.1) 04/13/2025 Atherosclerosis of artery of both lower extremities (ICD-10 - I70.203) 10/23/2024 Pain in left toe(s) (ICD-10 - M79.675) 04/13/2025 Tinea unguium (ICD-10 - B35.1) 01/06/2025 Tinea unguium (ICD-10 - B35.1) 01/06/2025 Pain in left toe(s) (ICD-10 - M79.675) 04/13/2025 Pain in left toe(s) (ICD-10 - M79.675) 10/23/2024 Pain in right toe(s) (ICD-10 - M79.674) 04/13/2025 Pain in right toe(s) (ICD-10 - M79.674) 01/06/2025 Pain in right toe(s) (ICD-10 - M79.674) Plan Of Treatment Next Appt Details Provider Name:Milady johnson, 07/14/2025 03:00:00 PM, [address] [place] [address], [phone], Insurance Providers Payer Name Payer Address Payer Phone Subscriber Number Group Number Insured Name Patient Relationship to Insured Coverage Start Date Coverage End Date [address] [address] [place] [address] [id number] Radha Persaud Self - patient is the insured Medical (General) History Medical History History ICD Code Anxiety Back pain Cataracts Hepatitis C High blood pressure Poor circulation Measles Surgical History Surgery Date(Month/Year) cataract surgery 09/11/2015 cataract surgery 11/23/2015
--- OUTSIDE RECORDS SUMMARY | 2025-06-15 18:11 | XMS_ITS | Encounter Summary ---
Author Organization [facility] Prior to 05/08/2024 Address [address] [place] [address] Care Team Providers Care Servicer Travel Trailers Name Role Phone Cait Redd MD Primary Care Provider [phone] Encounter Details Date Type Department Care Team Description 08/18/2021 Telephone Adult Medicine [address] [address] Vidhi Villalta PA-C Social History Tobacco Use [...] osteoporosis documented in this encounter Care Teams Servicer Travel Trailers Relationship Specialty Start Date End Date Cait Redd MD [address] [place] [address] PCP - General 01/11/09 documented as of this encounter
--- OUTSIDE RECORDS SUMMARY | 2025-06-15 18:11 | XMS_ITS | Encounter Summary ---
Author Organization [facility] Prior to 05/08/2024 Address [address] [place] [address] Care Team Providers Care Cook Roast Name Role Phone Cait Redd MD Primary Care Provider [phone] Reason for Visit * Reason Onset Date Comments Fall 12/19/2020 Leg Pain 12/19/2020 Swelling 12/19/2020 Encounter Details Date Type Department Care Team Description 12/19/2020 Telephone Adult Medicine [address] [phone] Cait Redd MD [address] [place] [address] [phone] Fall; Leg Pain; Swelling Social History Tobacco Use Types Packs/Day Years [...] encounter Miscellaneous Notes * Telephone Encounter - Wai Nguyen L.P.N. - 12/19/2020 11:20 AM EDT Patient reports knee injury right worse than left tripped on a curb 2 days ago Didn't seek ER care the right knee is red warm B & B and swollen the left knee has a small abrasion and slight bruise she is able to walk but painful Denies head injury No other injuries reported No temp No ER/hospital No travel Not exposed or tested for CV 19 in the past 30 days No cold/flu symptoms Had both Covid vaccines Appt tomorrow with Billie Martin PAC At 9 booked for a 1/2 hour * Telephone Encounter - Charanjit John - 12/19/2020 11:13 AM EDT Symptoms patient is presenting: Pt reports that she had a trip and fall 2 days ago landing on her right leg. She states that her leg has been very bruised, tender to touch, warm to touch and swollen.She notes that she has many vericose veins and is concerned for an infection. She denies use of blood thinners. Pt requesting appt with Elaine Norman. For ALL patients calling to schedule any appointment (routine, sick visit, follow up, consult, etc.) in the outpatient setting please ask the following questions: ?? Do you have fever of higher than 101, sore throat with difficulty swallowing or severe shortnessof breath? NO If YES to any of these above symptoms, send a message to triage and do not book. Red dot. If no, an audio or video visit should be booked. ?? Have you had close contact with someone with Coronavirus in the last 14 days? NO ?? Have you traveled abroad? NO ?? Have you traveled recently to another state outside of [place], [place], [place], [place], [place], [place], [place]? NO o If yes, did you quarantine for 14 days or have a negative covid test? NO If yes to any of the above, patient is not to be scheduled in office until after 14 day quarantine or negative covid test. If pain or injury related was it due to an accident at work or from a motor vehicle accident? NO If yes, gather 3rd green party insurance information Date of accident/Injury: How long has patient had these symptoms?: 2 days. PCP: Cait Redd Payor: WORKERS COMP / Plan: WORKERS [place] / Product Type: OTHER documented in this encounter Plan of Treatment Not on file documented as of this encounter Visit Diagnoses Not on filedocumented in this encounter Care Teams Cook Roast Relationship Specialty Start Date End Date Cait Redd MD [address] [place] [address] PCP - General 01/11/09 documented as of this encounter
--- OUTSIDE RECORDS SUMMARY | 2025-06-15 18:12 | XMS_ITS | Encounter Summary ---
Author Organization [facility] Prior to 05/08/2024 Address [address] [place] [address] Care Team Providers Care Engraver Seals Name Role Phone Cait Redd MD Primary Care Provider [phone] Reason for Visit * Reason Onset Date Comments Mychart Rx Refill 11/21/2020 Encounter Details Date Type Department Care Team Description 11/21/2020 Refill Adult Medicine [address] [id number] Cait Redd MD [address] [place] [address] [id number] Mychart Rx Refill Social History Tobacco Use Types Packs/Day Years Used Date Smoking Tobacco: Former Smokeless Tobacco: Never Comments:quit 2002 Alcohol Use Standard Drinks/Week Comments No 0 (1 standard drink = 0.6 oz pur e alcohol) Sex Assigned at Date Recorded Female 03/31/2021 9:19 AM EDT Job Start Date Occupation Industry Not on file Not on file Not on file documented as of this encounter Miscellaneous Notes * Telephone Encounter - Debby Simpson M.A. - 11/21/2020 1:26 PM EDT Lab Results Component Value Date NA 138 04/25/2020 K 4.3 05/06/2020 CO2 34 04/25/2020 CL 100 04/25/2020 BUN 24 04/25/2020 CREAT 0.86 04/25/2020 GLU 98 04/25/2020 CA 9.0 04/25/2020 GFR > 60 04/25/2020 Last appt with Elaine 04/26/20 documented in this encounter Plan of Treatment Not on file documented as of this encounter Visit Diagnoses Diagnosis Essential hypertension, benign Depression, unspecified depression type documented in this encounter Care Teams Engraver Seals Relationship Specialty Start Date End Date Cait Redd MD [address] [place] [id number] PCP - General 01/11/09 documented as of this encounter
== END 2025-06-15 14:10 | disposition home or self-care (01) ==
LOC: HO.HVS 13:17
PROVIDERS: PCP Internal Medicine; Visit Provider Surgery Vascular Surgery
DX: I83.11 Varicose veins of right lower extremity with inflammation (principal)
CPT/HCPCS: 99204

== ENCOUNTER → 2025-06-15 13:16 | Outpatient (BNVA) | payer MEDICARE, SELFPAY | PROVIDERS: PCP Internal Medicine; Visit Provider Surgery Vascular Surgery | DX: I83.11 Varicose veins of right lower extremity with inflammation (principal) | CPT/HCPCS: 99202 ==

== ENCOUNTER 2025-07-06 13:07 | Outpatient (REF) | payer MEDICARE, SELFPAY ==
--- OUTSIDE RECORDS SUMMARY | 2024-08-26 05:30 | XMS_ITS ---
Author Organization [facility] Address [address] [place] [address] Care Team Providers Care Tool Marker Name Role Phone Xiomara HOLLEY, Elsi Delgado Primary Care Provider Un available Milady Vance Unavailable [phone] Medications Medication SIG (Take, Route, Frequency, Duration) Notes Start Date End Date Status FLUoxetine HCl 10 MG TAKE 1 CAPSULE BY MOUTH DAILY Oral; Duration: 90 Days Active hydroCHLOROthiazide 25 MG TAKE 1 TABLET BY MOUTH DAILY Oral; Duration: 90 Days Active Metoprolol Succinate ER 25 MG TAKE 1 TAB LET BY MOUTH DAILY Oral; Duration: 90 Days Active oxyBUTYnin Chloride ER 15 MG TAKE 1 TABL ET BY MOUTH DAILY Oral; Duration: 90 Days Active Alendronate Sodium 70 MG TAKE 1 TABLET B Y MOUTH EVERY 7 DAYS Oral; Duration: 84 Days Active Vitamin D Active Vitamin C 500 MG as directed Orally Active Baby Aspirin 06/10/2023 Active Lipoic Acid Active Encounters Encounter Location Date Provider Diagnosis [address] [address] 08/26/2024 Milady Vance Plan Of Treatment Next Appt Details Provider Name:Milady johnson, 07/14/2025 03:00:00 PM, [address] [place], [address], Progress Notes * Radha CARR ADOB: [birth year] (74 yo F)Acc No.[id number]:08/26/2024 Progress Note Patient: Margot Radha GHOSH Provider: Hilaria Vance DPM :1950 A ge:73 Y S ex:Female Date:08/26/2024 Address:[address] [place] [address], [facility]ector Shetty [id number] Pcp:Tye Oviedo Subjective: * Chief Complaints: * * Medical History: A nxiety, Back pain, Cataracts, Hepatitis C, High blood pressure, Poor circulation, Measles. * Medications: T aking Vitamin C 500 MG Capsule as directed Orally , Taking Vitamin D , Taking Lipoic Acid , Taking Baby Aspirin , Taking hydroCHLOROthiazide 25 MG Tablet TAKE 1 TABLET BY MOUTH DAILY Oral , Taking FLUoxetine HCl 10 MG Capsule TAKE 1 CAPSULE BY MOUTH DAILY Oral , Taking oxyBUTYnin Chloride ER 15 MG Tablet Extended Release 24 Hour TAKE 1 TABLET BY MOUTH DAILY Oral , Taking Metoprolol Succinate ER 25 MG Tablet Extended Release 24 Hour TAKE 1 TABLET BY MOUTH DAILY Oral , Taking Alendronate Sodium 70 MG Tablet TAKE 1 TABLET BY MOUTH EVERY 7 DAYS Oral Objective: * Vitals: Assessment: Plan: * Treatment: * Images: * The named appointment provid er may or may not be the originator of this progress note, and it is not deemed complete until electronically signed by the appointment provider. Sign off status: Pending * Provider: Hilaria Vance DPM Date: 0 08/26/2024 Generated for Alesha mijares/Connor/Rosa on: 05:01 PM EST
--- OUTSIDE RECORDS SUMMARY | 2024-11-10 11:00 | XMS_ITS ---
Author Organization [facility] Address [address] [place] [address] Care Team Providers Care Automobile Club Information Clerk Name Role Phone Xiomara HOLLEY, Elsi Delgado Primary Care Provider Un available Milady Vance Unavailable [phone] REASON FOR VISIT Seen Sooner Encounters Encounter Location Date Provider Diagnosis [address] [address] 11/10/2024 Milady Vance Plan Of Treatment Next Appt Details Provider Name:Milady johnson, 07/14/2025 03:00:00 PM, [address] [place] [address], [address], Progress Notes * Radha CARR ADOB: [birth year] (74 yo F)Acc No.[id number]:11/10/2024 Progress Note Patient: Bimal LARSONlian Ponce Provider: Hilaria Vance DPM :1950 A ge:74 Y S ex:Female Date:11/10/2024 Address:[address] [place] [address], [address] [place] [address], [place], [place] Pcp:Tye Oviedo Subjective: * Chief Complaints: * 1 . Seen Sooner. * Medical History: Objective: * Vitals: Assessment: Plan: * Treatment: * Images: * The named appointment provid er may or may not be the originator of this progress note, and it is not deemed complete until electronically signed by the appointment provider. Sign off status: Pending * Provider: Hilaria Vance, NANCY Date: 0 11/10/2024 Generated for Alesha mijares/Connor/Rosa on: 1 05:00 PM EST
--- OUTSIDE RECORDS SUMMARY | 2025-04-02 05:00 | XMS_ITS ---
Author Organization [facility] Address [address] [place] [address] Care Team Providers Care Outreach Associate Name Role Phone Xiomara HOLLEY, Elsi Delgado Primary Care Provider Un available Milady Vance Unavailable [phone] Brizuela Encounters Encounter Location Date Provider Diagnosis [address] [address] 04/02/2025 Milady Vance Plan Of Treatment Next Appt Details Provider Name:Milady johnson, 07/14/2025 03:00:00 PM, [address] [place] [address], [phone], Progress Notes * Radha CARR ADOB: [birth year] (74 yo F)Acc No.[id number]:04/02/2025 Progress Note Patient: Bimal LARSONlian Ponce Provider: Hilaria Vance DPM :1950 A ge:74 Y S ex:Female Date:04/02/2025 Address:[address] [place] [address], [address] [place] [address], [place], [place] Pcp:Tye Oviedo Subjective: * Chief Complaints: * [address] Brizuela. * Medical History: Objective: * Vitals: Assessment: Plan: * Treatment: * Images: * The named appointment provid er may or may not be the originator of this progress note, and it is not deemed complete until electronically signed by the appointment provider. Sign off status: Pending * Provider: Hilaria Vance, NANCY Date: 0 04/02/2025 Generated for Alesha mijares/Connor/Rosa on: 1 05:00 PM EST
--- OUTSIDE RECORDS SUMMARY | 2025-05-07 07:45 | XMS_ITS ---
Author Organization [facility] Address [address] [place] [phone] Care Team Providers Care Crown Assembly Machine Set Up Mechanic Name Role Phone Xiomara HOLLEY, Elsi Delgado Primary Care Provider Un available Milady Vance [phone] Encounters Encounter Location Date Provider Diagnosis [address] [address] 05/07/2025 Milady Vance Plan Of Treatment Next Appt Details Provider Name:Milady johnson, 07/14/2025 03:00:00 PM, [address] [place] [address], [phone], Progress Notes * Radha CARR ADOB: [birth year] (74 yo F)Acc No.[id number]:05/07/2025 Progress Note Patient: Bimal LARSONliteri Johnson Provider: Hilaria Vance DPM :1950 A ge:74 Y S ex:Female Date:05/07/2025 Address:[address] [place] [address], [address] [place] [address], [place], [place] Pcp:Tye Oviedo Subjective: * Chief Complaints: * * Medical History: Objective: * Vitals: Assessment: Plan: * Treatment: * Images: * The named appointment provid er may or may not be the originator of this progress note, and it is not deemed complete until electronically signed by the appointment provider. Sign off status: Pending * Provider: Hilaria Vance DPM Date: Generated for Alesha mijares/Connor/Rosa on: 05:00 PM EST
--- OUTSIDE RECORDS SUMMARY | 2025-05-11 10:15 | XMS_ITS ---
Author Organization [facility] Address [address] [place] [address] Care Team Providers Care Quill Machine Operator Name Role Phone Xiomara HOLLEY, Elsi Delgado Primary Care Provider Un available Milady Vance [phone] Encounters Encounter Location Date Provider Diagnosis [address] [address] 05/11/2025 Milady Vance Plan Of Treatment Next Appt Details Provider Name:Milady johnson, 07/14/2025 03:00:00 PM, [address] [place] [address], [phone], Progress Notes * Radha CARR ADOB: [birth year] (74 yo F)Acc No.[id number]:05/11/2025 Progress Note Patient: Bimal LARSONliteri Johnson Provider: Hilaria Vance DPM :1950 A ge:74 Y S ex:Female Date:05/11/2025 Address:[address] [place] [address], [address] [place] [address], [place] Pcp:Tye Oviedo Subjective: * Chief Complaints: * * Medical History: Objective: * Vitals: Assessment: Plan: * Treatment: * Images: * The named appointment provid er may or may not be the originator of this progress note, and it is not deemed complete until electronically signed by the appointment provider. Sign off status: Pending * Provider: Hilaria Vance DPM Date: 07/11/2024 Generated for Alesha mijares/Connor/Rosa on: 05:01 PM EST
--- NOTE | ~2025-07-06 | US_ITS ---
EXAMINATION: US LOWER EXTREMITY VENOUS (REFLUX EXAM), BILATERAL CLINICAL INFORMATION: There is veins of the right lower extremity and inflammation. Patient gives history of vein stripping versus ablation and history of thrombophlebitis. COMPARISON: None. TECHNIQUE: Color flow triplex imaging and compression Doppler was performed to evaluate both the deep and the superficial systems bilaterally. To evaluate the superficial system, the examination was performed in the upright position. Color-flow Doppler ultrasound and compression ultrasound were utilized. In addition, maneuvers were utilized to demonstrate reflux. FINDINGS: 1. DEEP VENOUS ULTRASOUND OF THE RIGHT LOWER EXTREMITY: Common Femoral Vein: Compressible, normal respiratory variation and augmented flow. Femoral Vein: Compressible, normal color flow and augmentation. Popliteal Vein: Compressible, normal augmentation. Deep Reflux: There is no evidence of reflux in the deep system in either the common femoral vein, superficial femoral or the popliteal vein. There is no evidence of a Rosales's cyst. 2. SUPERFICIAL ULTRASOUND WITH DOPPLER OF RIGHT LOWER EXTREMITY: GREAT SAPHENOUS VEIN: Dilated. Areas of wall thickening and echogenic material, question changes from a chronic thrombophlebitis versus postablation changes. The right greater saphenous vein below the knee is noncompressible and very small. Saphenofemoral Junction: 1.0 cm; Reflux: 2236 ms Proximal Thigh: 0.9 cm; Reflux: 2348 ms Mid Thigh: 0.9 cm; Reflux: 2076 ms Distal Thigh: 1.3 cm; Reflux: 1648 ms At Knee: 0.6 cm; Reflux: 1216 ms Proximal Calf: 0.1 cm; occluded Mid Calf: 0.2 cm; Reflux: 1768 ms Distal Calf: 0.2 cm; Reflux: Greater than 3000 ms DUPLICATED MEDIAL GREAT SAPHENOUS VEIN: Diameter: None imaged Reflux: NA DUPLICATED LATERAL GREAT SAPHENOUS VEIN: Diameter: None imaged Reflux: NA SMALL SAPHENOUS VEIN: Saphenopopliteal Junction: 0.2 cm; Reflux: 0 ms Proximal: 0.4 cm; Reflux: 384 ms Distal: 0.2 cm; Reflux: 1124 ms VEIN OF GIACOMINI: Size: NA Reflux: NA PERFORATORS: Multiple perforators measuring 2 to 4 mm with the reflux measuring up to greater than 2.8 seconds. VARICOSITIES: Multiple varicosities measuring between 0.3 and 0.5 cm without reflux measuring maximum greater than 3 seconds. He varicosities demonstrate wall thickening and decreased compressibility suggestive of thrombophlebitis. 3. DEEP VENOUS ULTRASOUND OF THE LEFT LOWER EXTREMITY: Common Femoral Vein: Compressible, normal respiratory variation and augmented flow. Femoral Vein: Compressible, normal color flow and augmentation. Popliteal Vein: Compressible, normal augmentation. Deep Reflux: Deep venous reflux in the left common femoral vein measuring 776 ms. There is no evidence of reflux in the deep system in either the superficial femoral or the popliteal vein. There is no evidence of a Rosales's cyst. 4. SUPERFICIAL ULTRASOUND WITH DOPPLER OF LEFT LOWER EXTREMITY: GREAT SAPHENOUS VEIN: Dilated. Saphenofemoral Junction: 1.1 cm; Reflux: 0 ms Proximal Thigh: 1.1 cm; Reflux: 0 ms Mid Thigh: 0.8 cm; Reflux: Greater than 2600 ms Distal Thigh: 0.9 cm; Reflux: Greater than 2600 ms At Knee: 0.7 cm; Reflux: Greater than 2700 ms Proximal Calf: 1.0 cm; Reflux: Greater than 2500 ms Mid Calf: 0.5 cm; Reflux: Greater than 2500 ms Distal Calf: 0.2 cm; Reflux: 1100 ms DUPLICATED MEDIAL GREAT SAPHENOUS VEIN: Diameter: None imaged Reflux: NA DUPLICATED LATERAL GREAT SAPHENOUS VEIN: Diameter: None imaged. Reflux: NA SMALL SAPHENOUS VEIN: Saphenopopliteal Junction: 0.4 cm; Reflux: 0 ms Proximal: 0.4 cm; Reflux: 1980 ms Distal: 0.3 cm; Reflux: 0 ms VEIN OF GIACOMINI: Size: 0.5 cm Reflux: NA PERFORATORS: 2 perforators in the calf measuring 0.2 to 0.3 cm. Distal case hardener demonstrates 2.3 second reflux. VARICOSITIES: Multiple varicosities measuring between 0.3 and 0.7 cm with reflux, maximum greater than 2 seconds in the calf. US/US venous insuf bilat IMPRESSION: Right: No evidence of DVT or deep venous reflux. Dilated right greater saphenous vein with extensive reflux maximum greater than 3 seconds of the ankle. Wall thickening and echogenic material in the greater saphenous vein, question changes from thrombophlebitis versus postablation changes. Normal caliber right lesser saphenous vein. Right lesser saphenous vein reflux measuring maximum 1.1 seconds. The double perforators were reflux. Multiple varicosities with reflux. Many varicosities have wall thickening and echogenic material and decreased compression suggestive of changes of thrombophlebitis. Left: No evidence of DVT. Deep venous reflux in the left common femoral vein measuring 800 illi seconds. Dilated left greater saphenous saphenous vein with extensive reflux measuring maximum greater than 2.7 seconds at the knee. Minimally dilated left lesser saphenous vein to second reflux in the mid calf. Perforators in the calf, one with 2.3 second reflux. Multiple varicosities measuring up to 0.7 cm with reflux maximum greater than 2 seconds. Electronically signed by: Denise Goodwin MD 07/06/2025 03:21 PM RACHEL BELTRAN
--- OUTSIDE RECORDS SUMMARY | 2025-07-06 17:01 | XMS_ITS | Patient Health Record ---
Author Organization [facility] deirdre [place] Address [address] [facility] [place] [address] Care Team Providers Care Vending Route Servicer Name Role Phone Xiomara HOLLEY, Elsi Delgado Primary Care Provider Un available Milady Vance Unavailable [phone] Allergies No Known Allergies Reason For Referral [...] atherosclerosis of arteries of lower limbs (disorder) ([id number] ) Atherosclerosis of artery of both lower extremities (I70.203) Active confirmed Vital Signs Blood pressure diastolic 78 mm Hg 04/13/2025 Height 4ft 11in in 04/13/2025 Blood pressure systolic 120 mm Hg 04/13/2025 Weight 149 lbs 04/13/2025 BMI 30.09 kg/m2 04/13/2025 Encounters [facility] [address] [facility]/23[facility] Milady Perica Atherosclerosis of artery of both lower extremities I70.203 ; Tinea unguium B35.1 ; Pain in left toe(s) M79.675 and Pain in right toe(s) M79.[address] [address] 01/06/2025 Milady Perica Atherosclerosis of artery of both lower extremities I70.203 ; Tinea unguium B35.1 ; Pain in left toe(s) M79.675 and Pain in right toe(s) M79.[address] [address] 04/13/2025 Milady Perica Atherosclerosis of artery of both lower extremities I70.203 ; Tinea unguium B35.1 ; Pain in left toe(s) M79.675 and Pain in right toe(s) M79.[address] [address] 08/25/2024 Milady Perica [facility] [address] [facility] [address] [place] [address] 04/09/2025 Milady Perica Assessments Encounter Date Diagnosis [...] Details Provider Name:Milady johnson, 07/14/2025 03:00:00 PM, [address] [place] [address], [phone], Insurance Providers Payer Name Payer Address Payer Phone Subscriber Number Group Number Insured Name Patient Relationship to Insured Coverage Start Date Coverage End Date [address] [address] [place] [address] [id number] Radha Persaud Self - patient is the insured Medical (General) History Medical History History ICD Code Anxiety Back pain Cataracts Hepatitis C High blood pressure Poor circulation Measles Surgical History Surgery Date(Month/Year) cataract surgery 09/11/2015 cataract surgery 11/23/2015
== END 2025-07-06 13:08 | disposition home or self-care (01) ==
LOC: HO.US 13:07
PROVIDERS: PCP Internal Medicine; Visit Provider Surgery Vascular Surgery
DX: I83.11 Varicose veins of right lower extremity with inflammation (principal)
CPT/HCPCS: 93970

== ENCOUNTER → 2025-07-06 13:12 | Outpatient (BNV) | payer MEDICARE, SELFPAY | PROVIDERS: PCP Internal Medicine; Visit Provider Radiology Diagnostic Radiology | DX: I83.11 Varicose veins of right lower extremity with inflammation (principal) | CPT/HCPCS: 93970 ==